=== PATIENT | male | born 1960 | race Caucasian/White ===

== ENCOUNTER 2016-08-25 09:04 | Emergency (ER) | payer BC ==
[2016-08-25 09:37] LABS: Hematocrit 28 % (42-52); Hemoglobin 8.7 g/dl (14.0-18.0); Mean Corpuscular HGB Conc 31 g/dl (31-36); Mean Corpuscular Hemoglobin 22 pg (27-31); Mean Corpuscular Volume 71 fL (80-94); Mean Platelet Volume 8 um3 (7.4-10.4); Red Blood Count 3.96 10^6/ul (4.0-5.4); Red Cell Distribution Width 16 % (10.5-15); White Blood Count 6.7 10^3/ul (3.5-10.8)
[2016-08-25 09:41] LABS: Comments Flag Yes
[2016-08-25 09:57] LABS: BUN/Creatinine Ratio 15.7 (8-20); EGFR African American 97.9 (>60); EGFR Non-African American 76.1 (>60); Potassium 4.2 mmol/L (3.5-5.0)
--- NOTE | 2016-08-25 10:34 | RAD ---
INDICATION: Pain and swelling. COMPARISON: November 19, 2013 TECHNIQUE: Duplex interrogation of the Lowerextremity was performed. FINDINGS: Deep veins: The common femoral, great saphenous, profunda femoris, proximal, mid, and distal deep femoral, popliteal, posterior tibial, and peroneal veins are patent. There is normal compressibility, augmentation, and phasic flow. Superficial veins: There are no findings of superficial thrombophlebitis. Popliteal fossa:There is no evidence of a popliteal cyst. Soft tissues:There are no soft tissue abnormalities. IMPRESSION: Normal examination. No evidence of deep venous thrombosis
[2016-08-25 11:59] VITALS: BP 150/86
--- NOTE | 2016-08-28 18:41 | ED ---
Ho Siegel Billy, scribed for Jose Melendez MD on 08/25/16 at 1124 . Lower Extremity - HPI Summary HPI Summary: Patient is a 56 year-old male with a history of DVT coming to [facility] for evaluation of left calf cramping at 0400 today. Pain severity 6/10. There is no swelling to the left leg. He states that he went to bed at midnight without any remarkable symptoms at all. The patient states that he exerted himself mowing the yard yesterday. At this time, he also denies any dizziness or blood in the stool. - History of Current Complaint Chief Complaint: EDExtremityLower Stated Complaint: LEFT LEG PAIN Time Seen by Provider: 08/25/16 09:12 Hx Obtained From: Patient Mechanism Of Injury: Unknown Onset of Pain: Hours Onset/Duration: Hours Severity Initially: Moderate Severity Currently: Moderate Pain Intensity: 6 Pain Scale Used: 0-10 Numeric Timing: Constant Location: Is Discrete @ - left calf pain Associated Signs And Symptoms: Positive: Negative Aggravating Factor(s): Nothing Alleviating Factor(s): Nothing Able to Bear Weight: Yes - Allergies/Home Medications Allergies/Adverse Reactions: Allergies Allergy/AdvReac Type Severity Reaction Status Date / Time Codeine Allergy Severe Rash/trouble Verified 06/06/14 20:39 breathing Penicillins Allergy Unknown Unknown Verified 06/06/14 20:39 Reaction Details Bee Venom Allergy Hives Verified 04/10/16 13:05 Iodinated Diagnostic Agents Allergy Tachycardia Verified 04/10/16 13:04 excederin Allergy Severe Anaphylatic Uncoded 06/06/14 20:39 Shock PMH/Surg Hx/FS Hx/Imm Hx Endocrine/Hematology History: Reports: Hx Anticoagulant Therapy Denies: Hx Diabetes, Hx Systemic Lupus Erythematosus, Hx Thyroid Disease, Other Endocrine/Hematological Disorders Cardiovascular History: Reports: Hx Coronary Artery Disease - CATH IN 1999 STATED 90% BLOCKED ARTERY- RECENT STRESS TEST PT STATED NO PRO, Hx Hypertension , Other Cardiovascular Problems/Disorders - CAD, PALPITATIONS Denies: Hx Congestive Heart Failure, Hx Pacemaker/ICD Respiratory History: Reports: Hx Sleep Apnea - HX OF- BUT NOT CURRENTLY, Other Respiratory Problems/Disorders - chronic bronchitis Denies: Hx Asthma, Hx Chronic Obstructive Pulmonary Disease (COPD) GI History: Reports: Hx Gall Bladder Disease - removal jan 2012, Hx Gastroesophageal Reflux Disease - ON OCCASION, Other GI Disorders - multiple abd sx. rouen-y. History: Reports: Hx Kidney Stones - SURGERY 02/12/12, Hx Renal Disease - kidney stones, Other Problems/Disorders - prior kidney stones w ESWL. Denies: Hx Dialysis Musculoskeletal History: Reports: Hx Arthritis - KNEES, NECK, AND BACK, Other Musculoskeletal History - knee surgery Denies: Hx Rheumatoid Arthritis Sensory History: Reports: Hx Contacts or Glasses - GLASSES Denies: Hx Hearing Aid, Other Sensory Impairments Opthamlomology History: Reports: Hx Contacts or Glasses - GLASSES Denies: Other Sensory Impairments Neurological History: Denies: Hx Dementia, Hx Seizures, Other Neuro Impairments/Disorders Psychiatric History: Denies: Hx Panic Disorder, Hx Substance Abuse, Other Psychiatric Issues/ Disorders - Cancer History Cancer Type, Location and Year: COLONOSCOPY REVEALED POLYPS WHICH MAY HAVE BEEN PRE CANCEROUS diagnosed 2012 Hx Chemotherapy: No - Surgical History Surgery Procedure, Year, and Place: Cholecystectomy, KIDNEY STONE STENT REMOVED AFTER STONE PASSED, hernia repair, rouen-y gastric bypass, RT KNEE X2(TOTAL REPLACEMENT NOW 10/2013), CARDIAC CATH Hx Anesthesia Reactions: No Infectious Disease History: Denies: Hx Hepatitis, Hx Human Immunodeficiency Virus (HIV), History Other Infectious Disease, Traveled Outside the [place] in Last 30 Days - Family History Known Family History: Positive: Cardiac Disease, Diabetes - Social History Alcohol Use: None Substance Use Type: Reports: None Hx Tobacco Use: Yes Smoking Status (MU): Light Every Day Tobacco Smoker Type: Cigars Amount Used/How Often: 2 CIGARS/week 20 YRS Have You Smoked in the Last Year: Yes Review of Systems Negative: Fever, Chills Negative: Erythema Negative: Sore Throat Negative: Chest Pain Negative: Shortness Of Breath, Cough Negative: Abdominal Pain, Vomiting, Nausea Negative: dysuria, hematuria Positive: Myalgia. Negative: Edema Negative: Rash All Other Systems Reviewed And Are Negative: Yes Physical Exam - Summary Physical Exam Summary: Constitutional: Well-developed, Well-nourished, Alert. (-) Distressed Skin: Warm, Dry HENT: Normocephalic; Atraumatic Eyes: Conjunctiva normal Neck: Musculoskeletal ROM normal neck. (-) JVD, (-) Stridor, (-) Tracheal deviation Cardio: Rhythm regular, rate normal, Heart sounds normal; Intact distal pulses; The pedal pulses are 2+ and symmetric. Radial pulses are 2+ and symmetric. (-) Murmur Pulmonary/Chest wall: Effort normal. (-) Respiratory distress, (-) Wheezes, (-) Rales Abd: Soft, (-) Tenderness, (-) Distension, (-) Guarding, (-) Rebound Musculoskeletal: (-) Edema Lymph: (-) Cervical adenopathy Neuro: Alert, Oriented x3 Psych: Mood and affect Normal Triage Information Reviewed: Yes Vital Signs On Initial Exam: Initial Vitals Temp Pulse Resp BP Pulse Ox 97.9 F 69 20 152/90 100 08/25/16 09:08 08/25/16 09:08 08/25/16 09:08 08/25/16 09:08 08/25/16 09:08 Vital Signs Reviewed: Yes - [place] Coma Scale Coma Scale Total: 15 Diagnostics - Vital Signs Vital Signs Temp Pulse Resp BP Pulse Ox 08/25/16 09:30 97.9 F 72 20 152/90 98 08/25/16 09:08 97.9 F 69 20 152/90 100 - Laboratory Lab Results: Lab Results 08/25/16 08/25/16 08/25/16 Range/Units 09:25 09:25 09:25 WBC 6.7 (3.5-10.8) 10^3/ul RBC 3.96 L (4.0-5.4) 10^6/ul Hgb 8.7 L (14.0-18.0) g/dl Hct 28 L (42-52) % MCV 71 L (80-94) fL MCH 22 L (27-31) pg MCHC 31 (31-36) g/dl RDW 16 H (10.5-15) % Plt Count 295 (150-450) 10^3/ul MPV 8 (7.4-10.4) um3 INR (Anticoag Therapy) 0.95 (0.89-1.11) Sodium 135 (133-145) mmol/L Potassium 4.2 (3.5-5.0) mmol/L Chloride 105 (101-111) mmol/L Carbon Dioxide 24 (22-32) mmol/L Anion Gap 6 (2-11) mmol/L BUN 16 (6-24) mg/dL Creatinine 1.02 (0.67-1.17) mg/dL Est GFR ( Amer) 97.9 (>60) Est GFR (Non-Af Amer) 76.1 (>60) BUN/Creatinine Ratio 15.7 (8-20) Glucose 97 (70-100) mg/dL Calcium 9.0 (8.6-10.3) mg/dL Result Diagrams: 08/25/16 09:25 08/25/16 09:25 Lab Statement: Any lab studies that have been ordered have been reviewed, and results considered in the medical decision making process. - Ultrasound No standard instances Ultrasound Interpretation Completed By: Radiologist - Lower extremity ultrasound : Normal examination. No evidence of deep venous thrombosis Lower Extremity Course/Dx - Course Assessment/Plan: Patient is a 56 year-old male coming to [facility] for evaluation of LLE cramping today. DVT of the LLE showed no DVT. Labs were reviewed. Potassium is 4.2. Hgb/Hct is 8.7/28. MCV is 71. His prior lab values were reviewed, and the values today appear to be inconsistent with normal. Patient will be discharged home to follow up with PCP. - Diagnoses Provider Diagnoses: Leg cramp, Anemia - Physician Notifications Discussed Care of Patient With: POLINA Hoskins (Dr. Corey's office) at 1150: patient is to call the office when he leaves the ED, and they will schedule an appointment in the next 48 hours. Discharge - Discharge Plan Condition: Stable Disposition: HOME Patient Education Materials: Leg Cramps (ED), Anemia (ED) Referrals: Consuelo Corey MD [Primary Care Provider] - 2 Days Additional Instructions: COME TO THE EMERGENCY ROOM WITH CHEST PAIN, SHORTNESS OF BREATH, DIZZINESS, FATIGUE, OR ANY WORSENING SYMPTOMS. AVOID TAKING MOTRIN OR IBUPROFEN IN THE MEANTIME. TAKE IRON SUPPLEMENTS INSTRUCTED. FOLLOW UP WITH YOUR PRIMARY CARE PHYSICIAN FOR REPEAT LAB RESULTS. CALL THE OFFICE RIGHT AFTER YOU LEAVE THE EMERGENCY ROOM TO SCHEDULE AN APPOINTMENT. The documentation as recorded by the Ho castano Billy accurately reflects the service I personally performed and the decisions made by , Jose Melendez MD.
== END 2016-08-25 11:57 | disposition home or self-care (01) ==
LOC: ED 09:04
DX: R25.2 Cramp and spasm (principal); D64.9 Anemia, unspecified; F17.290 Nicotine dependence, other tobacco product, uncomplicated; I25.10 Atherosclerotic heart disease of native coronary artery without angina pectoris; I10 Essential (primary) hypertension; K21.9 Gastro-esophageal reflux disease without esophagitis; Z79.01 Long term (current) use of anticoagulants
CPT/HCPCS: 36415; 80048; 85027; 85610; 99283

== ENCOUNTER 2016-12-24 06:17 | Emergency (ER) | payer BC ==
--- NOTE | 2016-12-24 08:05 | RAD ---
INDICATION: LEFT wrist deformity post fall. Pain. COMPARISON: No relevant prior exams available on the [facility] for comparison. TECHNIQUE: AP, lateral, and oblique views LEFT wrist. REPORT: Mildly impacted intra-articular fracture of the distal radius without significant resulting articular surface discontinuity or incongruity at the radiocarpal joint despite intra-articular extension. No additional fracture evident. Loss of the normal volar tilt of the distal radioarticular surface. Articular alignment is otherwise unremarkable. Osteoarthritis with advanced degenerative arthropathy at the basal joint of the thumb. Associated subchondral sclerosis and cystic change. Nonfocal soft tissue swelling. IMPRESSION: Minimally impacted and comminuted intra-articular fracture at the distal radius.
--- NOTE | 2016-12-24 08:05 | RAD ---
INDICATION: Trauma, left rib pain. COMPARISON: Comparison is made with a prior chest x-ray study from September 15, 2016. TECHNIQUE: Dual-energy PA and lateral views of the chest were obtained. FINDINGS: The heart is within normal limits in size. Mediastinal and hilar contours appear within normal limits. The lungs are underinflated and clear. No pleural effusion or pneumothorax is seen. No rib fracture is appreciated. IMPRESSION: NO EVIDENCE FOR ACTIVE CARDIOPULMONARY DISEASE.
[2016-12-24 08:14] VITALS: BP 169/99
--- NOTE | 2016-12-24 08:37 | ED ---
Merrick Siegel Angela, scribed for Ayush Goldstein MD on 12/24/16 at 0800 . Upper Extremity Pain - HPI Summary HPI Summary: This pt is a 56 y/o male presenting to [facility] c/o left wrist and left rib pain s/ p falling today at 5:30 AM. Pt reports he accidentally fell down 3 steps walking out of his house and landed on his left arm and ribs. Pt endorses a sharp pain when taking a deep breath. Pt denies dizziness prior to fall, head strike, LOC, abd pain, lower extremity pain. He has not taken any pain medication. He states his hemoglobin has been low since last week and has avoided taking pain medications. - History of Current Complaint Chief Complaint: EDExtremityUpper Stated Complaint: ARM AND RIB PAIN FALL Time Seen by Provider: 12/24/16 07:18 Hx Obtained From: Patient Mechanism Of Injury: Fall From Height Of: - 3 steps down Timing: Constant Aggravating Factor(s): Movement, Other - deep breathing Alleviating Factor(s): Nothing Associated Signs & Symptoms: Negative: Chest Pain, SOB - Allergies/Home Medications Allergies/Adverse Reactions: Allergies Allergy/AdvReac Type Severity Reaction Status Date / Time Codeine Allergy Severe Rash/trouble Verified 06/06/14 20:39 breathing Penicillins Allergy Unknown Rash Verified 09/03/16 14:18 Bee Venom Allergy Hives Verified 04/10/16 13:05 Iodinated Diagnostic Agents Allergy Tachycardia Verified 04/10/16 13:04 excederin Allergy Severe Anaphylatic Uncoded 06/06/14 20:39 Shock PMH/Surg Hx/FS Hx/Imm Hx Endocrine/Hematology History: Reports: Hx Anticoagulant Therapy Denies: Hx Diabetes, Hx Systemic Lupus Erythematosus, Hx Thyroid Disease, Other Endocrine/Hematological Disorders Cardiovascular History: Reports: Hx Coronary Artery Disease - CATH IN 1999 STATED 90% BLOCKED ARTERY- RECENT STRESS TEST PT STATED NO PRO, Hx Hypertension , Other Cardiovascular Problems/Disorders - CAD, PALPITATIONS, CARDIAC CATH, ANEMIA, LOW HEMOGLOBIN, PEPTIC ULCER Denies: Hx Congestive Heart Failure, Hx Pacemaker/ICD Respiratory History: Reports: Hx Sleep Apnea - HX OF- BUT NOT CURRENTLY, Other Respiratory Problems/Disorders - chronic bronchitis,BLOOD CLOTS IN LUNGS Denies: Hx Asthma, Hx Chronic Obstructive Pulmonary Disease (COPD) GI History: Reports: Hx Gall Bladder Disease - removal jan 2012, Hx Gastroesophageal Reflux Disease - ON OCCASION, Other GI Disorders - multiple abd sx. rouen-y. History: Reports: Hx Kidney Stones - SURGERY 02/12/12, Hx Renal Disease - kidney stones, Other Problems/Disorders - prior kidney stones w ESWL. Denies: Hx Dialysis Musculoskeletal History: Reports: Hx Arthritis - KNEES, NECK, AND BACK, Other Musculoskeletal History - knee surgery Denies: Hx Rheumatoid Arthritis Sensory History: Reports: Hx Contacts or Glasses - GLASSES Denies: Hx Hearing Aid, Other Sensory Impairments Opthamlomology History: Reports: Hx Contacts or Glasses - GLASSES Denies: Other Sensory Impairments Neurological History: Denies: Hx Dementia, Hx Seizures, Other Neuro Impairments/Disorders Psychiatric History: Denies: Hx Panic Disorder, Hx Substance Abuse, Other Psychiatric Issues/ Disorders - Cancer History Cancer Type, Location and Year: COLONOSCOPY REVEALED POLYPS WHICH MAY HAVE BEEN PRE CANCEROUS diagnosed 2012 Hx Chemotherapy: No - Surgical History Surgery Procedure, Year, and Place: Cholecystectomy, KIDNEY STONE STENT REMOVED AFTER STONE PASSED, hernia repair, rouen-y gastric bypass, RT KNEE X2(TOTAL REPLACEMENT NOW 10/2013), CARDIAC CATH Hx Anesthesia Reactions: No - Immunization History Date of Tetanus Vaccine: utd Date of Influenza Vaccine: utd Infectious Disease History: No Infectious Disease History: Denies: Hx Hepatitis, Hx Human Immunodeficiency Virus (HIV), History Other Infectious Disease, Traveled Outside the [place] in Last 30 Days - Social History Alcohol Use: None Alcohol Amount: none in 4 years Substance Use Type: Reports: None Hx Tobacco Use: Yes Smoking Status (MU): Former Smoker Type: Cigars Amount Used/How Often: 2 CIGARS/week 20 YRS Have You Smoked in the Last Year: Yes Review of Systems Negative: Fever, Chills Negative: Abdominal Pain All Other Systems Reviewed And Are Negative: Yes Physical Exam Triage Information Reviewed: Yes Vital Signs On Initial Exam: Initial Vitals Temp Pulse Resp BP Pulse Ox 97.5 F 73 20 164/100 100 12/24/16 06:18 12/24/16 06:18 12/24/16 06:18 12/24/16 06:18 12/24/16 06:18 Vital Signs Reviewed: Yes Appearance: Positive: Well-Appearing Skin: Positive: Warm, Skin Color Reflects Adequate Perfusion, Dry Head/Face: Positive: Normal Head/Face Inspection Eyes: Positive: Normal ENT: Positive: Normal ENT inspection Neck: Positive: Supple, Nontender Respiratory/Lung Sounds: Positive: Clear to Auscultation, Breath Sounds Present Cardiovascular: Positive: RRR Abdomen Description: Positive: Nontender, Soft Bowel Sounds: Positive: Present Musculoskeletal: Positive: Other - Tenderness on the left anterior lateral chest inferiorly. Swelling over the snuff box area in left wrist. - [place] Coma Scale Coma Scale Total: 15 Procedures - Splinting Hand-Made Type: orthoglass Splint: volar Pre-Proc Neuro Vasc Exam: normal Post-Proc Neuro Vasc Exam: normal Diagnostics - Vital Signs Vital Signs Temp Pulse Resp BP Pulse Ox 12/24/16 06:22 97.5 F 73 20 164/100 100 12/24/16 06:18 97.5 F 73 20 164/100 100 - Laboratory Lab Statement: Any lab studies that have been ordered have been reviewed, and results considered in the medical decision making process. - Radiology Chest XR Xray Interpretation: No Acute Changes - IMPRESSION: No evidence for active cardiopulmonary disease. ED physician has reviewed this radiology report and agrees. Radiology Interpretation Completed By: Radiologist Left wrist XR Xray Interpretation: Positive (See Comments) - IMPRESSION: Minimally impacted and comminuted intra-articular fracture at the distal radius. ED physician has reviewed this radiology report and agrees. Radiology Interpretation Completed By: Radiologist - Awaiting radiologist's report. Please see [employer]. Course/Dx - Course Course Of Treatment: Mr. Hawk had a mechanical fall down three steps this AM about 0530. He hurt his left wrist and the left side of his chest is sore with sharp pain to movement and breaths. No rib fractures were noted on x-ray but he does have a comminuted, intraarticular radial fracture that is nondisplaced. I placed him in a temporary volar spoint as he has a lot of dorsal swelling. He has been anemic for unknown reasons that are being W/U but assures me that he was not dizzy and did not faint. - Diagnoses Provider Diagnoses: Fracture of wrist, Chest wall contusion Discharge - Discharge Plan Condition: Stable Disposition: HOME Prescriptions: oxyCODONE/Acetamin 5/325 MG* [Percocet 5/325 TAB*] 1 tab PO Q6H PRN #20 tab MDD 4 PRN Reason: Pain Patient Education Materials: Wrist Fracture in Adults (ED), Chest Wall Pain (ED ) Referrals: Consuelo Grossman MD [Primary Care Provider] - Lachelle Tam MD [Medical Doctor] - Additional Instructions: Your blood pressure was elevated during today's visit. Please follow up with Dr. Tam (from orthopedics) regarding your wrist today. The documentation as recorded by the Merrick castano Angela accurately reflects the service I personally performed and the decisions made by me, Ayush Goldstein MD.
== END 2016-12-24 08:16 | disposition home or self-care (01) ==
LOC: ED 06:17
DX: S62.102A Fracture of unspecified carpal bone, left wrist, initial encounter for closed fracture (principal); S20.219A Contusion of unspecified front wall of thorax, initial encounter; W10.9XXA Fall (on) (from) unspecified stairs and steps, initial encounter; Y93.9 Activity, unspecified; Y92.9 Unspecified place or not applicable
CPT/HCPCS: 71020; 99282

== ENCOUNTER 2017-04-20 12:06 | Emergency (ER) | payer BC ==
[2017-04-20 12:39] VITALS: BP 154/85
--- NOTE | 2017-04-20 14:54 | UC ---
Respiratory Complaint HPI - HPI Summary HPI Summary: Pt presents with coughing and wheezing for the last 4-5 days. He has not tried anything OTC. Cough is not productive. Denies fever, chills, SOB, chest pain, abdominal pain, N/V/D/C - History of Current Complaint Chief Complaint: UCRespiratory Stated Complaint: COUGH WHEEZING Time Seen by Provider: 04/20/17 14:54 Hx Obtained From: Patient Onset/Duration: Gradual Onset Timing: Constant Severity Initially: Mild Severity Currently: Moderate - Allergies/Home Medications Allergies/Adverse Reactions: Allergies Allergy/AdvReac Type Severity Reaction Status Date / Time Codeine Allergy Severe Rash/trouble Verified 04/20/17 12:33 breathing Penicillins Allergy Unknown Rash Verified 04/20/17 12:33 Bee Venom Allergy Hives Verified 04/20/17 12:33 Iodinated Diagnostic Agents Allergy Tachycardia Verified 04/20/17 12:33 Statins Allergy Unknown Verified 04/20/17 12:33 Reaction Details excederin Allergy Severe Anaphylatic Uncoded 04/20/17 12:33 Shock PMH/Surg Hx/FS Hx/Imm Hx Previously Healthy: Yes Endocrine History: Dyslipidemia Cardiovascular History: Hypertension GI/ History: Gastroesophageal Reflux Other History Of: Anticoagulant Therapy - Surgical History Surgical History: Yes Surgery Procedure, Year, and Place: Cholecystectomy, KIDNEY STONE STENT REMOVED AFTER STONE PASSED, hernia repair, rouen-y gastric bypass, RT KNEE X2(TOTAL REPLACEMENT NOW 10/2013), CARDIAC CATH - Social History Occupation: Employed Full-time Lives: With Family Alcohol Use: None Alcohol Amount: none in 4 years Substance Use Type: None Smoking Status (MU): Former Smoker Type: Cigars Amount Used/How Often: 2 CIGARS/week 20 YRS Have You Smoked in the Last Year: Yes Household Exposure Type: Cigars Cessation Counseling: Patient Advised to Stop - Immunization History Most Recent Influenza Vaccination: FALL 2012 Most Recent Tetanus Shot: 2011 Most Recent Pneumonia Vaccination: NEVER Review of Systems Constitutional: Negative Skin: Negative Eyes: Negative ENT: Negative Respiratory: Cough, Other - Wheezing Cardiovascular: Negative Gastrointestinal: Negative All Other Systems Reviewed And Are Negative: Yes Physical Exam Triage Information Reviewed: Yes Appearance: Well-Appearing, Well-Nourished Vital Signs: Initial Vital Signs Temp 97.8 F 04/20/17 12:36 Resp 20 04/20/17 12:36 BP 154/85 04/20/17 12:36 Pulse Ox 98 04/20/17 12:36 Vital Signs Reviewed: Yes Eyes: Positive: Conjunctiva Clear. Negative: Conjunctiva Inflamed, Discharge ENT: Positive: Hearing grossly normal, Pharynx normal, TMs normal, Uvula midline. Negative: Pharyngeal erythema, Nasal congestion, Nasal drainage, TM bulging, TM dull, TM red, Tonsillar swelling, Tonsillar exudate, Muffled voice, Hoarse voice, Sinus tenderness Neck: Positive: Supple, Nontender, No Lymphadenopathy Respiratory: Positive: Chest non-tender, Lungs clear, No respiratory distress, No accessory muscle use, Wheezing - Throughout. Negative: Crackles Cardiovascular: Positive: RRR, No Murmur, Pulses Normal Neurological: Positive: Alert Psychological: Positive: Age Appropriate Behavior Skin: Negative: rashes UC Diagnostic Evaluation - Laboratory O2 Sat by Pulse Oximetry: 98 Respiratory Course/Dx - Course Course Of Treatment: Suspect bronchitis. Rx for albuterol and tessalon. No indication for antibiotic at this time - Differential Dx/Diagnosis Differential Diagnosis/HQI/PQRI: Asthma, Bronchitis, Influenza, Lower Resp Infection Provider Diagnoses: Bronchitis Discharge - Discharge Plan Condition: Stable Disposition: HOME Prescriptions: Albuterol HFA INHALER* [Ventolin HFA Inhaler*] 2 puff INH Q6H PRN #1 mdi PRN Reason: Sob/Wheezing Benzonatate CAP* [Tessalon 100 MG CAP*] 100 mg PO TID PRN #30 cap PRN Reason: Cough Patient Education Materials: Acute Bronchitis (ED) Referrals: Consuelo Grossman MD [Primary Care Provider] - Additional Instructions: If you develop a fever, SOB, chest pain, new or worsening symptoms - please call your PCP or go to the ED. Your blood pressure was high at todays visit. Please see your primary provider within 4 weeks for recheck and re-evaluation.
== END 2017-04-20 15:10 | disposition home or self-care (01) ==
LOC: UCEAST 12:06
DX: J40 Bronchitis, not specified as acute or chronic (principal); Z87.891 Personal history of nicotine dependence
CPT/HCPCS: 99212; G0463

== ENCOUNTER 2018-04-01 13:12 | Inpatient (IN) | payer BC ==
[2018-04-01 16:16] LABS: ABS Basophils 0.2 10^3/ul (0-0.2); ABS Eosinophils 0.2 10^3/ul (0-0.6); ABS Lymphocytes 1.4 10^3/ul (1.0-4.8); ABS Monocytes 0.7 10^3/ul (0-0.8); ABS Neutrophils 7.4 10^3/ul (1.5-7.7); ABS Nucleated RBC 0 10^3/ul; Eosinophil % 1.9 %; Hematocrit 24 % (42-52); Hemoglobin 7.4 g/dl (14.0-18.0); Lymphocyte % 14.4 %; Mean Corpuscular HGB Conc 31 g/dl (31-36); Mean Corpuscular Hemoglobin 23 pg (27-31); Mean Corpuscular Volume 74 fL (80-94); Mean Platelet Volume 7.4 fL (7.4-10.4); Nucleated Red Blood Cells % 0; Platelet Count 348 10^3/ul (150-450); Red Blood Count 3.22 10^6/ul (4.00-5.40); Red Cell Distribution Width 15 % (10.5-15); White Blood Count 9.9 10^3/ul (3.5-10.8)
[2018-04-01 16:22] LABS: INR 1.06 (0.77-1.02)
[2018-04-01 16:31] LABS: EGFR Non-African American 88.4 (>60)
--- NOTE | 2018-04-01 18:36 | ED ---
Complex/Multi-Sys Presentation - HPI Summary HPI Summary: A 58 y/o male presents to [facility] because Dr. Lin referred him after his hemoglobin was low at 7.8 on 04/01/18. He claims he has been dealing with this problem since August,. According to the patient, before August a non- bleeding ulcer was found and a gastrosurgeon found found a "non-bleeding tear in a pouch". He denies any Hx of transfusions. He also endorses SOB, abd pain and lightheadedness. The patient denies any palpitations or CP. He denies a Hx of CHF and A-fib. He claims that in 2001 he had a cardiac cath and did not need stents. He denies rectal bleeding. He denies taking blood thinners. He is a former smoker who quit 4.5 years ago. - History Of Current Complaint Chief Complaint: EDShortnessOfBreath Time Seen by Provider: 04/01/18 15:04 Hx Obtained From: Patient Onset/Duration: Gradual Onset, Lasting Weeks, Still Present Timing: Constant Severity Currently: Moderate Severity Initially: Moderate Associated Signs And Symptoms: Positive: SOB, Abdominal Pain, Other - lightheadedness. Negative: Palpitations - Allergies/Home Medications Allergies/Adverse Reactions: Allergies Allergy/AdvReac Type Severity Reaction Status Date / Time aspirin Allergy Anaphylatic Verified 04/01/18 13:21 [From Excedrin Migraine] Shock bee venom protein (honey bee) Allergy Hives Verified 04/01/18 13:21 caffeine Allergy Anaphylatic Verified 04/01/18 13:21 [From Excedrin Migraine] Shock codeine Allergy Rash Verified 04/01/18 13:21 Iodinated Contrast- Oral and Allergy Tachycardia Verified 04/01/18 13:21 IV Dye Penicillins Allergy Rash Verified 04/01/18 13:21 [id number] Reductase Allergy Unknown Verified 04/01/18 13:21 Inhibitor Reaction Details PMH/Surg Hx/FS Hx/Imm Hx Endocrine/Hematology History: Reports: Hx Anticoagulant Therapy Denies: Hx Diabetes, Hx Systemic Lupus Erythematosus, Hx Thyroid Disease, Other Endocrine/Hematological Disorders Cardiovascular History: Reports: Hx Coronary Artery Disease - CATH IN 1999 STATED 90% BLOCKED ARTERY- RECENT STRESS TEST PT STATED NO PRO, Hx Hypertension , Other Cardiovascular Problems/Disorders - CAD, PALPITATIONS, CARDIAC CATH, ANEMIA, LOW HEMOGLOBIN, PEPTIC ULCER Denies: Hx Congestive Heart Failure, Hx Pacemaker/ICD Respiratory History: Reports: Hx Sleep Apnea - HX OF- BUT NOT CURRENTLY, Other Respiratory Problems/Disorders - chronic bronchitis,BLOOD CLOTS IN LUNGS Denies: Hx Asthma, Hx Chronic Obstructive Pulmonary Disease (COPD) GI History: Reports: Hx Gall Bladder Disease - removal jan 2012, Hx Gastroesophageal Reflux Disease - ON OCCASION, Other GI Disorders - multiple abd sx.; rouen-y 2002 History: Reports: Hx Kidney Stones - SURGERY 02/12/12, Hx Renal Disease - kidney stones, Other Problems/Disorders - prior kidney stones w ESWL. Denies: Hx Dialysis Musculoskeletal History: Reports: Hx Arthritis - KNEES, NECK, AND BACK, Other Musculoskeletal History - knee surgery Denies: Hx Rheumatoid Arthritis Sensory History: Reports: Hx Contacts or Glasses - GLASSES Denies: Hx Hearing Aid, Other Sensory Impairments Opthamlomology History: Reports: Hx Contacts or Glasses - GLASSES Denies: Other Sensory Impairments Neurological History: Denies: Hx Dementia, Hx Seizures, Other Neuro Impairments/Disorders Psychiatric History: Denies: Hx Panic Disorder, Hx Substance Abuse, Other Psychiatric Issues/ Disorders - Cancer History Cancer Type, Location and Year: COLONOSCOPY REVEALED POLYPS WHICH MAY HAVE BEEN PRE CANCEROUS diagnosed 2012 Hx Chemotherapy: No - Surgical History Surgery Procedure, Year, and Place: Cholecystectomy, KIDNEY STONE STENT REMOVED AFTER STONE PASSED, hernia repair, rouen-y gastric bypass, RT KNEE X2(TOTAL REPLACEMENT NOW 10/2013), CARDIAC CATH Hx Anesthesia Reactions: No - Immunization History Date of Tetanus Vaccine: utd Date of Influenza Vaccine: utd Infectious Disease History: No Infectious Disease History: Denies: Hx Clostridium Difficile, Hx Hepatitis, Hx Human Immunodeficiency Virus (HIV), Hx of Known/Suspected MRSA, Hx Shingles, Hx Tuberculosis, Hx Known/ Suspected VRE, Hx Known/Suspected VRSA, History Other Infectious Disease, Traveled Outside the [place] in Last 30 Days - Family History Known Family History: Negative: Cardiac Disease, Blood Disorder - Social History Alcohol Use: None Alcohol Amount: none in 4 years Substance Use Type: Reports: None Hx Tobacco Use: Yes Smoking Status (MU): Former Smoker Type: Cigars Amount Used/How Often: 2 CIGARS/week 20 YRS Have You Smoked in the Last Year: Yes Review of Systems Negative: Palpitations, Chest Pain Positive: Shortness Of Breath Gastrointestinal: Negative - rectal bleeding Positive: Abdominal Pain Psychological: Other - positive: lightheadedness All Other Systems Reviewed And Are Negative: Yes Physical Exam - Summary Physical Exam Summary: GENERAL: Patient is a well-developed and nourished M who is lying comfortable in the stretcher. Patient is not in any acute respiratory distress. HEAD AND FACE: Normocephalic EYES: PERRLA, EOMI x 2. EARS: Hearing grossly intact. MOUTH: Oropharynx within normal limits. NECK: Supple, trachea is midline, no adenopathy, no JVD, no carotid bruit. CHEST: Symmetric, no tenderness at palpation LUNGS: Clear to auscultation bilaterally. No wheezing or crackles. CVS: Regular rate and rhythm, S1 and S2 present, no murmurs or gallops appreciated. ABDOMEN: Soft, non-tender. Bowel sounds are normal. No abdominal abnormal pulsations. EXTREMITIES: Full ROM in all major joints, no edema, no cyanosis or clubbing. NEURO: Alert and oriented x 3. No acute neurological deficits. Speech is normal and follows commands. SKIN: Dry and warm Triage Information Reviewed: Yes Vital Signs On Initial Exam: Initial Vitals Temp Pulse Resp BP Pulse Ox 98.1 F 73 18 149/77 96 04/01/18 13:15 04/01/18 13:15 04/01/18 13:15 04/01/18 13:15 04/01/18 13:15 Vital Signs Reviewed: Yes Diagnostics - Vital Signs Vital Signs Temp Pulse Resp BP Pulse Ox 04/01/18 18:00 75 21 97 04/01/18 17:44 75 21 147/77 97 04/01/18 17:42 73 29 144/69 98 04/01/18 17:14 74 22 137/79 96 04/01/18 17:00 71 15 97 04/01/18 16:44 73 21 136/70 98 04/01/18 16:14 19 134/78 04/01/18 16:00 72 17 98 04/01/18 15:44 71 17 138/76 97 04/01/18 15:14 71 22 136/76 97 04/01/18 15:00 74 18 97 04/01/18 14:46 78 15 97 04/01/18 14:44 81 149/94 98 04/01/18 13:15 98.1 F 73 18 149/77 96 - Laboratory Lab Results: Lab Results 04/01/18 04/01/18 04/01/18 Range/Units 16:00 16:00 16:00 WBC 9.9 (3.5-10.8) 10^3/ul RBC 3.22 L (4.00-5.40) 10^6/ul Hgb 7.4 L (14.0-18.0) g/dl Hct 24 L (42-52) % MCV 74 L (80-94) fL MCH 23 L (27-31) pg MCHC 31 (31-36) g/dl RDW 15 (10.5-15) % Plt Count 348 (150-450) 10^3/ul MPV 7.4 (7.4-10.4) fL Neut % (Auto) 74.8 % Lymph % (Auto) 14.4 % Keith % (Auto) 7.3 % Eos % (Auto) 1.9 % Baso % (Auto) 1.6 % Absolute Neuts (auto) 7.4 (1.5-7.7) 10^3/ul Absolute Lymphs (auto) 1.4 (1.0-4.8) 10^3/ul Absolute Monos (auto) 0.7 (0-0.8) 10^3/ul Absolute Eos (auto) 0.2 (0-0.6) 10^3/ul Absolute Basos (auto) 0.2 (0-0.2) 10^3/ul Absolute Nucleated RBC 0 10^3/ul Nucleated RBC % 0 INR (Anticoag Therapy) 1.06 H (0.77-1.02) APTT 25.7 L (26.0-36.3) seconds Sodium 136 (135-145) mmol/L Potassium 4.1 (3.5-5.0) mmol/L Chloride 105 (101-111) mmol/L Carbon Dioxide 27 (22-32) mmol/L Anion Gap 4 (2-11) mmol/L BUN 15 (6-24) mg/dL Creatinine 0.89 (0.67-1.17) mg/dL Est GFR ( Amer) 107.0 (>60) Est GFR (Non-Af Amer) 88.4 (>60) BUN/Creatinine Ratio 16.9 (8-20) Glucose 105 H (70-100) mg/dL Lactic Acid (0.5-2.0) mmol/L Calcium 8.9 (8.6-10.3) mg/dL Magnesium 2.0 (1.9-2.7) mg/dL Total Bilirubin 0.30 (0.2-1.0) mg/dL AST 12 L (13-39) U/L ALT 10 (7-52) U/L Alkaline Phosphatase 42 (34-104) U/L Troponin I 0.00 (<0.04) ng/mL Total Protein 5.8 L (6.4-8.9) g/dL Albumin 3.4 (3.2-5.2) g/dL Globulin 2.4 (2-4) g/dL Albumin/Globulin Ratio 1.4 (1-3) Blood Type Antibody Screen Crossmatch 04/01/18 04/01/18 Range/Units 16:00 16:00 WBC (3.5-10.8) 10^3/ul RBC (4.00-5.40) 10^6/ul Hgb (14.0-18.0) g/dl Hct (42-52) % MCV (80-94) fL MCH (27-31) pg MCHC (31-36) g/dl RDW (10.5-15) % Plt Count (150-450) 10^3/ul MPV (7.4-10.4) fL Neut % (Auto) % Lymph % (Auto) % Keith % (Auto) % Eos % (Auto) % Baso % (Auto) % Absolute Neuts (auto) (1.5-7.7) 10^3/ul Absolute Lymphs (auto) (1.0-4.8) 10^3/ul Absolute Monos (auto) (0-0.8) 10^3/ul Absolute Eos (auto) (0-0.6) 10^3/ul Absolute Basos (auto) (0-0.2) 10^3/ul Absolute Nucleated RBC 10^3/ul Nucleated RBC % INR (Anticoag Therapy) (0.77-1.02) APTT (26.0-36.3) seconds Sodium (135-145) mmol/L Potassium (3.5-5.0) mmol/L Chloride (101-111) mmol/L Carbon Dioxide (22-32) mmol/L Anion Gap (2-11) mmol/L BUN (6-24) mg/dL Creatinine (0.67-1.17) mg/dL Est GFR ( Amer) (>60) Est GFR (Non-Af Amer) (>60) BUN/Creatinine Ratio (8-20) Glucose (70-100) mg/dL Lactic Acid 0.5 (0.5-2.0) mmol/L Calcium (8.6-10.3) mg/dL Magnesium (1.9-2.7) mg/dL Total Bilirubin (0.2-1.0) mg/dL AST (13-39) U/L ALT (7-52) U/L Alkaline Phosphatase (34-104) U/L Troponin I (<0.04) ng/mL Total Protein (6.4-8.9) g/dL Albumin (3.2-5.2) g/dL Globulin (2-4) g/dL Albumin/Globulin Ratio (1-3) Blood Type B Positive Antibody Screen Negative Crossmatch See Detail Result Diagrams: 04/02/18 10:26 04/02/18 07:18 Lab Statement: Any lab studies that have been ordered have been reviewed, and results considered in the medical decision making process. - Radiology CXR Radiology Interpretation Completed By: Radiologist Summary of Radiographic Findings: 1. No radiographic evidence for acute cardiopulmonary abnormality on this portable chest. x-ray. 2. The pulmonary nodules identified on the recent CT examination are not well depicted on. this chest x-ray. Follow-up chest CT exam is advised according to the recommendations on. the March 28, 2018 CT of the chest. ED physician has reviewed this imaging report. - EKG 18:05 Cardiac Rate: NL - 74 bpm EKG Rhythm: Sinus Rhythm Summary of EKG Findings: normal axis Complex Multi-Symp Course/Dx Course Of Treatment: A 58 y/o male presents to [facility] because Dr. Lin referred him after his hemoglobin was low at 7.8 on 04/01/18. Workup is remarkable. CXR impression: 1. No radiographic evidence for acute cardiopulmonary abnormality on this portable chest. x-ray. 2. The pulmonary nodules identified on the recent CT examination are not well depicted on. this chest x-ray. Follow-up chest CT exam is advised according to the recommendations on. the March 28, 2018 CT of the chest. Lab results obtained consistent with anemia. Dx: anemia. Patient will be admitted to Dr. Sawyer. Case discussed with hospitalist. I discussed results with patient. The patient agrees with this plan. - Diagnoses Provider Diagnoses: Anemia - Physician Notifications Discussed Care Of Patient With: Kym Sawyer Time Discussed With Above Provider: 18:30 Instructed by Provider To: Admit As Inpatient - Critical Care Time Critical Care Time: 30-74 min - 30 mins Discharge - Sign-Out/Discharge Documenting (check all that apply): Patient Departure - Admit - Discharge Plan Condition: Fair Disposition: ADMITTED TO [facility] - Billing Disposition and Condition Condition: FAIR Disposition: Admitted to [facility] - Attestation Statements Document Initiated by Nicole: Yes Documenting Scribe: Raulito Saunders Provider For Whom Nicole is Documenting (Include Credential): Danika Downing MD Scribe Attestation: Raulito Siegel, scribed for Danika Downing MD on 04/03/18 at 0231. Scribe Documentation Reviewed: Yes Provider Attestation: The documentation as recorded by the Raulito castano accurately reflects the service I personally performed and the decisions made by , Larissa Downing MD Status of Scribe Document: Viewed
[2018-04-01] MEDS ORDERED: Albuterol 2.5 MG/3 ML NEB.SOL* (0.083%) INH PRN (19:21)
[2018-04-01] MEDS ORDERED: Al Hydrox/Mg Hydrox/Simet LIQ* 30 ML UDC PO PRN (19:21)
[2018-04-01] MEDS ORDERED: Acetaminophen TAB* 325 MG PO PRN (19:21)
[2018-04-01] MEDS: Pantoprazole IV* 40 MG IV SCH (21:15)
[2018-04-02 01:12] LABS: Hematocrit 27 % (42-52); Hemoglobin 8.1 g/dl (14.0-18.0)
[2018-04-02 04:09] LABS: Hematocrit 27 % (42-52); Hemoglobin 8.1 g/dl (14.0-18.0)
--- NOTE | 2018-04-02 06:41 | HP ---
CC: Dr. Corey * HISTORY AND PHYSICAL: DATE OF ADMISSION: 04/01/18 PROVIDER: Ana Trevino NP. PRIMARY CARE PROVIDER: Dr. Corey. ATTENDING PHYSICIAN WHILE IN THE HOSPITAL: Dr. Mariel Iyer * (dictated by Ana Trevino NP). CHIEF COMPLAINT: 1. Shortness of breath. 2. Anemia. HISTORY OF PRESENT ILLNESS: Mr. Hawk is a 58-year-old male with a past medical history significant for hypertension, anemia, gout, kidney stones, hyperlipidemia, history of Connor-en-Y gastric bypass, who was called by Dr. Garza's office today and sent to the emergency room for further evaluation of his anemia. The patient reports that he has had increased shortness of breath and dizziness over the past 5 weeks that has progressively become worse. He states that at [facility], he had a hard time completing tasks ans would have to sit often to catch his breath due to his shortness of breath. He was also feeling fatigued. He reports that today he was called by Dr. Garza's office and instructed to come to the emergency room due to a low hemoglobin and hematocrit. He said that this was a routine followup for him to go over results of his CAT scan for a pulmonary nodule that they are monitoring. The patient reports back in January 2018, he did have an upper endoscopy at [facility] and at that time, they removed some stitches and report that there was no ulcerations at that time, but there was a pocket that they told him they would need to continue to monitor. He denies any fever, chills. Denies any loss of appetite. Denies any chest pain or edema. He does report occasional cough. He denies any hemoptysis. He does report shortness of breath , worse with exertion. Denies any nausea or vomiting. Denies any diarrhea. He does report abdominal pain, located around his abdominal hernia that comes and goes. He denies any gross hematuria, dysuria. Denies any focal weakness or sensory loss. Denies any visual complaints. Denies any dysphagia. He denies any arthralgias or myalgias. He does have a left ankle with a small scabbed area noted to the lateral aspect. He denies any psychosis or anxiety. PAST MEDICAL HISTORY: Significant for: 1. Hypertension. 2. Anemia. 3. Gout. 4. Hyperlipidemia. 5. Kidney stone. 6. Gastric bypass. PAST SURGICAL HISTORY: 1. Gastric bypass. 2. Cholecystectomy. 3. Hernia repair. 4. Right total knee replacement. 5. Cardiac catheterization. HOME MEDICATIONS: 1. Iron 325 mg p.o. daily. 2. Omeprazole. 3. Vitamin D 1000 units. 4. Multivitamin. 5. B12. 6. Vitamin C. 7. Fish oil. 8. Fenofibrate 145 mg p.o. daily. 9. Pindolol 20 mg p.o. daily. 10. Allopurinol 300 mg p.o. daily. 11. Ventolin HFA inhaler. ALLERGIES TO MEDICATIONS: He has allergy to ASPIRIN, had an ANAPHYLACTIC SHOCK. Allergy to BEES, CAFFEINE, CODEINE, CONTRAST, PENICILLIN, and STATINS. FAMILY HISTORY: Mother and father with a history of hypertension. Brother and sister with a history of diabetes. Mother with a history of breast cancer. Father with a history of prostate cancer. SOCIAL HISTORY: The patient reports that he quit smoking 4-1/2 years ago. Denies any alcohol use. Denies any illicit drug use. Surrogate decision maker in the event he is unable to make his own decision is his son or daughter. His son's name is Isidro, his daughter's name is August. He is a full code. REVIEW OF SYSTEMS: There was no documented fever. No loss of appetite. Denies any chest pain or edema. Does report occasional cough. Denies any hemoptysis. He does report some shortness of breath, worse with exertion, progressively worsening over the past 5 weeks. Denies any nausea, vomiting, diarrhea. He does report abdominal pain near his hernia, unchanged. Denies any gross hematuria, dysuria. Denies any focal weakness or sensory loss. Denies any visual complaints. Denies dysphagia. Denies any arthralgias or myalgias. He does have a lesion to the left ankle. Denies any psychosis or anxiety. PHYSICAL EXAMINATION GENERAL: At this time, Mr. Hawk is a 58-year-old male. He appears pale, sitting on the stretcher in the emergency room. He is not in acute distress. VITAL SIGNS: Blood pressure 146/84, heart rate 75, respirations 20, O2 saturation 97%, temperature 99.4. HEENT: Head is atraumatic, normocephalic. Eyes: EOMs are intact. Sclerae anicteric, they are pale. Oral mucosa is moist. No oropharyngeal erythema. NECK: Supple. LUNGS: Clear to auscultation bilaterally. No wheezes, rales, or rhonchi. CARDIAC: S1, S2. Regular rate and rhythm. No murmurs, rubs, or gallops. ABDOMEN: Soft and nontender. Bowel sounds are present x4. EXTREMITIES: Pulses are +2 bilaterally. He is able to move all 4 extremities with 5/5 strength. NEUROLOGIC: He is awake, alert, oriented x3. Speech is clear. There is no gross focal deficits. SKIN: He has a small scabbed area noted to the left lateral ankle and left mid bourgeois, healing without redness. DIAGNOSTIC STUDIES AND LABORATORY DATA: WBCs 9.9, RBCs 3.22, hemoglobin 7.4, hematocrit 24, platelet count 348. INR was 1.06. APTT was 25.7. Sodium 136, potassium 4.1, chloride 105, carbon dioxide 27, anion gap 4, BUN 15, creatinine 0.89, glucose 105, lactic acid 0.5, calcium 8.9. Magnesium was 2.0. AST 12, ALT 10. Troponin was 0.00. Stool for occult was positive. He had a chest x-ray. Radiologist's impression: No evidence of acute cardiopulmonary abnormality on this portable chest x-ray. The pulmonary nodules identified on the CT exam are not well seen on this chest x-ray. Followup CT exam is advised according to the recommendations on 03/28/18 CT of the chest, which recommends followup in 3 to 6 months. He had an electrocardiogram, which showed sinus rhythm at a rate of 74. ASSESSMENT AND PLAN: Mr. Hawk is a 58-year-old male who presented to the emergency room today at the direction of his molecular biology director, Dr. Garza, for further evaluation of anemia. The patient reports that he has been short of breath and dizzy and given these symptoms, we were asked to admit him to the hospital. He will be admitted inpatient for: 1. Anemia. I suspect this is related to GI bleed. The patient does have a positive guaiac stool. We will trend his H and H q.6 hours. He did receive a unit of packed red blood cells in the emergency room. He will be placed on clear liquids and n.p.o. after midnight. I have consulted GI, Dr. Zaldivar, who will see him tomorrow. We will continue with a PPI, Protonix 40 mg b.i.d. I will also add a ferritin, total iron-binding capacity, and iron saturation. 2. Shortness of breath/dizziness. I suspect this is related to his anemia. We will continue with supportive care and monitor his H and H as needed. 3. Hypertension. He will continue on his pindolol 20 mg p.o. daily. 4. Hyperlipidemia. He will continue on fenofibrate 145 mg p.o. daily. 5. History of gout. He can continue his allopurinol 300 mg p.o. daily. 6. FEN. He will be placed on clear liquid diet and to be n.p.o. after midnight for possible upper endoscopy tomorrow. 7. Code status: Full code. 8. DVT prophylaxis: He scores a 2, which gives him a moderate risk. At this time, I am going to hold on heparin as he does have guaiac-positive stools and is anemic. I will place him on SCDs. 9. Disposition: He will be placed inpatient. TIME SPENT: Time spent on this admission was 60 minutes, greater than half the time was spent [id number] with the patient obtaining my history and physical, the other half the time was spent going over my plan of care and implementing my plan of care. I have discussed with my attending, Dr. Mariel Iyer, and she is in agreement with my plan. ANA TREVINO, MONITOR WORKER [id number]/[facility] #: [id number] [facility] HOSPITALLizette
[2018-04-02 07:52] LABS: Hematocrit 27 % (42-52); Hemoglobin 8.4 g/dl (14.0-18.0); Mean Corpuscular HGB Conc 31 g/dl (31-36); Mean Corpuscular Hemoglobin 23 pg (27-31); Mean Corpuscular Volume 76 fL (80-94); Red Blood Count 3.59 10^6/ul (4.00-5.40); Red Cell Distribution Width 16 % (10.5-15); White Blood Count 10.1 10^3/ul (3.5-10.8)
[2018-04-02 08:05] LABS: EGFR Non-African American 101.5 (>60)
[2018-04-02 08:59] LABS: ABS Basophils 0.1 10^3/ul (0-0.2); ABS Eosinophils 0.2 10^3/ul (0-0.6); ABS Lymphocytes 1.4 10^3/ul (1.0-4.8); ABS Monocytes 0.8 10^3/ul (0-0.8); ABS Neutrophils 7.6 10^3/ul (1.5-7.7); ABS Nucleated RBC 0 10^3/ul; Nucleated Red Blood Cells % 0; Platelet Count Platelets clumped. 10^3/ul (150-450)
[2018-04-02] MEDS: Pantoprazole IV* 40 MG IV SCH (10:13)
[2018-04-02 10:35] LABS: Hematocrit 27 % (42-52); Hemoglobin 8.5 g/dl (14.0-18.0)
[2018-04-02] MEDS ORDERED: Midazolam* 1 MG/ML 10 ML VIAL (10 MG) ONE (12:17)
[2018-04-02] MEDS ORDERED: fentaNYL* 50 MCG/ML 2 ML VIAL (100 MCG VIAL) ONE (12:17)
--- NOTE | 2018-04-02 12:26 | PN ---
Subjective Date of Service: 04/02/18 Interval History: Patient seen and examined. No acute overnight events. Patient states no SOB at rest but was getting SOB with stairs and longer distances. Denies chest pain, no n/v/d, no fevers or chills. Objective Active Medications: Acetaminophen (Tylenol Tab*) 650 mg PO Q4H PRN PRN Reason: FEVER/PAIN Al Hydrox/Mg Hydrox/Simethicone (Maalox Plus*) 30 ml PO Q6H PRN PRN Reason: INDIGESTION Albuterol (Ventolin 2.5 Mg/3 Ml Neb.Antonietta*) 2.5 mg INH [id number] AWAKE PRN PRN Reason: sob/wheezing Pantoprazole Sodium (Protonix Iv*) 40 mg IV Q12H BRIAN Last Admin: 04/02/18 10:13 Dose: 40 mg Vital Signs - 8 hr 04/02/18 07:29 Temperature 98.0 F Pulse Rate 68 Respiratory 19 Rate Blood Pressure 138/70 (mmHg) O2 Sat by Pulse 98 Oximetry Oxygen Devices in Use Now: None Appearance: alert, well-appearing, NAD Eyes: No Scleral Icterus, PERRLA Ears/Nose/Mouth/Throat: NL Teeth, Lips, Gums, Mucous Membranes Moist Neck: NL Appearance and Movements; NL JVP, Trachea Midline Respiratory: Clear to Auscultation Cardiovascular: NL Sounds; No Murmurs; No JVD, RRR, No Edema Abdominal: NL Sounds; No Tenderness; No Distention Extremities: No Edema, No Clubbing, Cyanosis Skin: No Rash or Ulcers Neurological: Alert and Oriented x 3, NL Sensation, NL Muscle Strength and Tone Nutrition: - - currently NPO Result Diagrams: 04/02/18 10:26 04/02/18 07:18 Additional Lab and Data: Lab Results 04/01/18 04/01/18 04/01/18 Range/Units 16:00 16:00 16:00 WBC 9.9 (3.5-10.8) 10^3/ul RBC 3.22 L (4.00-5.40) 10^6/ul Hgb 7.4 L (14.0-18.0) g/dl Hct 24 L (42-52) % MCV 74 L (80-94) fL MCH 23 L (27-31) pg MCHC 31 (31-36) g/dl RDW 15 (10.5-15) % Plt Count 348 (150-450) 10^3/ul MPV 7.4 (7.4-10.4) fL Neut % (Auto) 74.8 % Lymph % (Auto) 14.4 % Fisher % (Auto) 7.3 % Eos % (Auto) 1.9 % Baso % (Auto) 1.6 % Absolute Neuts (auto) 7.4 (1.5-7.7) 10^3/ul Absolute Lymphs (auto) 1.4 (1.0-4.8) 10^3/ul Absolute Monos (auto) 0.7 (0-0.8) 10^3/ul Absolute Eos (auto) 0.2 (0-0.6) 10^3/ul Absolute Basos (auto) 0.2 (0-0.2) 10^3/ul Absolute Nucleated RBC 0 10^3/ul Nucleated RBC % 0 INR (Anticoag Therapy) 1.06 H (0.77-1.02) APTT 25.7 L (26.0-36.3) seconds Sodium 136 (135-145) mmol/L Potassium 4.1 (3.5-5.0) mmol/L Chloride 105 (101-111) mmol/L Carbon Dioxide 27 (22-32) mmol/L Anion Gap 4 (2-11) mmol/L BUN 15 (6-24) mg/dL Creatinine 0.89 (0.67-1.17) mg/dL Est GFR ( Amer) 107.0 (>60) Est GFR (Non-Af Amer) 88.4 (>60) BUN/Creatinine Ratio 16.9 (8-20) Glucose 105 H (70-100) mg/dL Lactic Acid (0.5-2.0) mmol/L Calcium 8.9 (8.6-10.3) mg/dL Magnesium 2.0 (1.9-2.7) mg/dL Total Bilirubin 0.30 (0.2-1.0) mg/dL AST 12 L (13-39) U/L ALT 10 (7-52) U/L Alkaline Phosphatase 42 (34-104) U/L Troponin I 0.00 (<0.04) ng/mL Total Protein 5.8 L (6.4-8.9) g/dL Albumin 3.4 (3.2-5.2) g/dL Globulin 2.4 (2-4) g/dL Albumin/Globulin Ratio 1.4 (1-3) Blood Type Antibody Screen Crossmatch 04/01/18 04/01/18 Range/Units 16:00 16:00 WBC (3.5-10.8) 10^3/ul RBC (4.00-5.40) 10^6/ul Hgb (14.0-18.0) g/dl Hct (42-52) % MCV (80-94) fL MCH (27-31) pg MCHC (31-36) g/dl RDW (10.5-15) % Plt Count (150-450) 10^3/ul MPV (7.4-10.4) fL Neut % (Auto) % Lymph % (Auto) % Fisher % (Auto) % Eos % (Auto) % Baso % (Auto) % Absolute Neuts (auto) (1.5-7.7) 10^3/ul Absolute Lymphs (auto) (1.0-4.8) 10^3/ul Absolute Monos (auto) (0-0.8) 10^3/ul Absolute Eos (auto) (0-0.6) 10^3/ul Absolute Basos (auto) (0-0.2) 10^3/ul Absolute Nucleated RBC 10^3/ul Nucleated RBC % INR (Anticoag Therapy) (0.77-1.02) APTT (26.0-36.3) seconds Sodium (135-145) mmol/L Potassium (3.5-5.0) mmol/L Chloride (101-111) mmol/L Carbon Dioxide (22-32) mmol/L Anion Gap (2-11) mmol/L BUN (6-24) mg/dL Creatinine (0.67-1.17) mg/dL Est GFR ( Amer) (>60) Est GFR (Non-Af Amer) (>60) BUN/Creatinine Ratio (8-20) Glucose (70-100) mg/dL Lactic Acid 0.5 (0.5-2.0) mmol/L Calcium (8.6-10.3) mg/dL Magnesium (1.9-2.7) mg/dL Total Bilirubin (0.2-1.0) mg/dL AST (13-39) U/L ALT (7-52) U/L Alkaline Phosphatase (34-104) U/L Troponin I (<0.04) ng/mL Total Protein (6.4-8.9) g/dL Albumin (3.2-5.2) g/dL Globulin (2-4) g/dL Albumin/Globulin Ratio (1-3) Blood Type B Positive Antibody Screen Negative Crossmatch See Detail Microbiology and Other Data: Microbiology 04/01/18 19:05 Stool Occult Blood (DUSTIN) - Final Stool Assess/Plan/Problems-Billing Assessment: This is a 58 year old male with hx of connor-en-y bypass in 2002 that presented with abnormal labs/anemia, 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 - Patient Problems (1) Anemia Code(s): D64.9 - ANEMIA, UNSPECIFIED SNOMED Code(s): 573479694 Comment: - Acute on chronic? - Etiology nutritional 2/2 gastric bypass vs GIB vs both - No melena, hemoccult positive - GI consulted, will likely be scoped this afternoon to assess for upper GIB - Obtain records from scope last month at [facility] - NPO, protonix (2) Morbid obesity with BMI of 40.0-44.9, adult Code(s): E66.01 - MORBID (SEVERE) OBESITY DUE TO EXCESS CALORIES; Z68.41 - BODY MASS INDEX (BMI) 40.0-44.9, ADULT SNOMED Code(s): 373127452 Comment: - Connor-en-Y in 2002 - supportive care Status and Disposition: Inpatient, dispo to home when medically stable.
--- NOTE | 2018-04-02 14:23 | CONS ---
GASTROENTEROLOGY CONSULT REPORT: DATE OF CONSULT: 04/02/18 REQUESTING PROVIDER: Christie Bartholomew NP REASON FOR CONSULT: Consult requested for anemia. HISTORY OF PRESENT ILLNESS: Mr. Hawk is a 58-year-old gentleman with obesity, status post Connor-en-Y gastric bypass in 2002, anemia, hypertension, gout, hyperlipidemia, and pulmonary nodule, who is admitted for symptomatic anemia. Mr. Hawk reports that he has had progressive dizziness, shortness of breath and fatigue for the past 4 to 6 weeks. He has not seen any overt GI bleeding. He underwent blood work routinely as an outpatient through oncology ( following for pulm nodule) and was noted to have hemoglobin of 7.4 and hematocrit 24. He was instructed to present to the ER for evaluation and admission. He was given 2 units of blood. Subsequent blood counts have demonstrated hemoglobin of 8.4 and hematocrit of 27. GI was consulted. On interview, Mr. Hawk states that he is feeling a bit better with a less fatigue and shortness of breath since receiving the transfusions. He has a history of anemia and was seen by Dr. Felipe Rolle in the past. An EGD in August 2016 noticed a small duodenal ulcer at the site of anastomosis. Followup EGD in March 2017 demonstrated resolution of this ulcer. He has been maintained on once a day iron supplementation, which up until this point has improved his anemia. He apparently also underwent an EGD in January 2018 by one of the surgeons in [place]. He recalls being told that some sutures were removed. He was also told that there was a small pouch or connection between the excluded stomach and the gastric pouch, which will need to be monitored. He did not think there were any ulcerations at the time of that endoscopy. Over the last few weeks, he denies seeing any blood in his stool. His bowel movements are twice a day and range from brown to black in color. He has attributed the darker stools to the iron supplementation. He has not noted any change in the stool frequency or consistency. He denies any abdominal pain, nausea, vomiting , dysphagia or reflux. He has had 40 pounds of weight loss, which has been intentional over the last 4 to 5 months. He remains on iron supplementation once a day as mentioned earlier. He also takes Prilosec once a day. He does not use any NSAIDs. Last colonoscopy was by Dr. Rolle in April 2016 at which point 3 adenomas were removed. PAST MEDICAL HISTORY: Medical history notable for: 1. Obesity with Connor-en-Y gastric bypass in 2002. 2. Hypertension. 3. Hyperlipidemia. 4. Anemia as discussed above. 5. Gout. 6. Kidney stones. PAST SURGICAL HISTORY: The bypass as mentioned above, also cholecystectomy, hernia repair and knee replacement MEDICATIONS: 1. Iron 325 mg daily. 2. Omeprazole 20 mg daily. 3. Vitamin D. 4. Multivitamin. 5. Vitamin B12. 6. Vitamin C. 7. Fish oil. 8. Fenofibrate. 9. Pindolol. 10. Allopurinol. 11. Ventolin inhaler. ALLERGIES: ASPIRIN, BEES, CAFFEINE, CODEINE, CONTRAST, PENICILLIN AND STATINS. FAMILY HISTORY: No GI or liver disease in family. SOCIAL HISTORY: Former smoker, quit 45 years ago. No alcohol or drug use. REVIEW OF SYSTEMS: The patient reports a bit of abdominal discomfort at the site of the incisional hernia, which is intermittent. Denies any other symptoms as mentioned above. A 12-point review of systems was reviewed with the patient. PHYSICAL EXAM: Vital Signs: Afebrile, heart rate in the 70s, blood pressure 138/70. General: Well-appearing, obese gentleman resting in bed, appears comfortable, in no acute distress. HEENT: Mucous membranes moist. Anicteric sclerae. Cardiovascular: Regular rate and rhythm. No murmurs. Pulm: Lungs clear to auscultation. Abdomen: Obese, soft, nontender, nondistended. Extremities: No significant edema. DIAGNOSTIC STUDIES/LAB DATA: Reviewed. White count normal at 9.9, hemoglobin on admission 7.4, hematocrit 24. This is in comparison to hemoglobin of 12.5 in October 2017. Most recent hemoglobin is 8.5 and hematocrit 27 -- after 2 units of blood. Platelets have been normal. INR is normal. Comprehensive panel normal including BUN and creatinine. Iron studies demonstrated percent saturation of 3% , iron less than 15, ferritin 3.6. Imaging: Chest x-ray performed on admission, which was unremarkable. Procedures: EGD and colonoscopy reports reviewed and summarized in HPI. The patient's recent endoscopy in January 2018 in [place] is not available for review today, although this will be requested. IMPRESSION/RECOMMENDATIONS: Mr. Hawk is a 58-year-old gentleman with history of obesity, status post gastric bypass in 2002 and complicated by anastomotic ulcer in August 2016, anemia on iron supplementation, hypertension, hyperlipidemia, and history of gout, who is admitted with symptomatic anemia without overt GI bleeding. Mr. Hawk is certainly quite iron deficient on presentation, although he denies seeing any blood in his stool. Melena possible, although dark stools may also be related to iron supplementation. His blood count has responded to 2 units of blood and remained stable, although the response is a bit less of a robust response than would be expected with 2 units. Presentation more suggestive of possible slow or chronic GI blood loss. Patient does have a history of anastomotic ulcer in August 2016 and is at risk for recurrent anastomotic or marginal ulcers. He says that he had an upper endoscopy in January by a surgeon, at which point suture material was removed, but he recalls being told there was no inflammation or ulceration at that time. At this point, my recommendation would be to keep patient n.p.o. I will plan to do an EGD today to evaluate for any source of upper GI blood loss. Continue to monitor his CBC and continue PPI b.i.d. It would appear that he needs to have increased iron supplementation given his quite low iron level. Would avoid NSAIDs. Please obtain recent endoscopy report from [place]. Further recommendations to follow after endoscopy. Thank you for this consult. [id number]/[facility] #: [id number] PATY
[2018-04-02] MEDS ORDERED: Docusate CAP* 100 MG PO PRN (16:51)
[2018-04-02] MEDS: Ferrous Sulfate TAB* 325 MG PO SCH (20:29)
--- NOTE | 2018-04-03 00:30 | PRO ---
CC: Dr. Consuelo Corey PROCEDURE REPORT: DATE OF PROCEDURE: 04/02/18 PRIMARY CARE PHYSICIAN: Dr. Consuelo Corey. PROCEDURE: EGD with biopsy. INDICATION: History of gastric bypass in 2002. Prior small marginal ulcer noted in 2017. Now with symptomatic anemia. Positive stool occult, although no overt bleeding. MEDICATIONS GIVEN: 1. Midazolam 12 IV. 2. Fentanyl 100 mcg IV. DESCRIPTION OF PROCEDURE: Full disclosure of risks was reviewed with the patient as detailed on the consent form. The patient was placed in the left lateral decubitus position and monitored with continuous pulse oximetry, interval blood pressure monitoring, and direct observation. A bite-block was placed between the teeth. An Olympus gastroscope was then inserted into the patient's mouth and advanced down into the esophagus, into the stomach, and into the distal duodenum. Findings are detailed below. FINDINGS: Esophagus was a normal tubular structure without rings or strictures. The scope was passed into the remnant stomach. The remnant stomach appeared to contain a small opening proximal to the anastomosis. The remnant and anastomosis were examined. There was no fresh or old blood seen. There was at least 2 parts of visible suture or staple material at anastomosis line. There was no evidence of anastomotic ulceration. The scope was then advanced into the Connor limb for 30 cm. There were no erosions or ulcers. There was no evidence of fresh or old blood. The scope was withdrawn back into the remnant stomach. Biopsy obtained and sent for CLOtest. The scope was then withdrawn from the patient. The patient tolerated the procedure well and was recovered in the GI recovery area. IMPRESSION: 1. Visible suture material seen at the anastomosis. No ulceration. 2. No evidence of upper gastrointestinal bleeding identified during this exam. 3. 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 The lumen of this was too small to intubate with the scope. RECOMMENDATIONS: 1. Await CLOtest. 2. Continue PPI. 3. Advance diet. 4. Monitor blood counts. 5. Increase iron supplementation as the patient is quite iron deficient. No clear source of iron deficiency from a GI bleeding standpoint identified during this exam. If the patient remains stable, then would recommend followup in GI Clinic to discuss if further workup as indicated. This may include repeat colonoscopy and/or small bowel imaging. 6. Would consider obtaining an upper GI series to more definitively evaluate for the presence of a gastrogastric fistula. Thank you very much for this consult. [id number]/[facility] #: [id number] PATY
[2018-04-03 07:59] VITALS: BP 150/72
[2018-04-03] MEDS: Ferrous Sulfate TAB* 325 MG PO SCH (08:59)
[2018-04-03] MEDS ORDERED: Omeprazole CAP* 20 MG PO SCH (09:00)
--- NOTE | 2018-04-04 08:24 | DS ---
CC: Dr. Eduardo Braun; Dr. Vi Zaldivar; Dr. Consuelo Corey * DISCHARGE SUMMARY: DATE OF ADMISSION: 04/01/18 DATE OF DISCHARGE: 04/03/18 PRIMARY CARE PROVIDER: Dr. Consuelo Corey. ATTENDING FOR THIS ADMISSION: Dr. Eduardo Braun.* (DICTATED BY EDWIN OGLESBY NP) HISTORY OF PRESENT ILLNESS: Please see admission H and P dated ; however, in short, this is a pleasant 58-year-old male patient who was in to see Dr. Dafne Garza regarding some followup lab work. It was noted at that time that the patient had some significant anemia. The patient does have history of Connor-en-Y gastric bypass. His anemia started interfering with his everyday life. He stated that he had some difficulty completing tasks at home having to catch his breath, feeling fatigued and having some exertional dyspnea. The patient did have an endoscopy last month at [facility]. At that time, it showed that he may have had a small fistula near the pouch from his Connor-en-Y bypass. He also has some baseline anemia that may or may not be related to his gastric bypass surgery; however, his hemoglobin at admission was 7.4 with a hematocrit of 24 and for those reasons, he was admitted to the hospital for further evaluation for GI bleeding. The patient was seen by Dr. Zaldivar. He underwent a brief endoscopy, which did not show any disruptions to the gastric mucosa, the pouch was evaluated. He did not have any ulcerations. Again, this small fistula area was noted but it did not seem to be contributing to his current anemia. The patient already does take ferrous sulfate. He is iron deficient. Per the recommendations from GI, the patient should be increased on his ferrous sulfate. His hemoglobin did improve to 8.5 on 04/02/18. He did receive 1 unit of packed red cells and had a guaiac-positive stool in the emergency department. The patient was placed on PPI. Iron studies were conducted exhibiting iron deficiency. His shortness of breath and dizziness resolved. Endoscopic procedure is as above. Please also refer to Dr. Hank Richey's procedure report. The patient was stabilized and ready for discharge on 04/03/18. At that time, there were no changes to his medications other than continuing PPI and adding additional ferrous sulfate to 3 times a day as opposed to 2 times per day. DISCHARGE DIAGNOSES: 1. Anemia, iron deficiency versus GI bleeding, now resolved. 2. Shortness of breath and dizziness secondary to #1. 3. History of hypertension. 4. History of hyperlipidemia. 5. History of gout. 6. Morbid obesity status post Connor-en-Y gastric bypass. MEDICATIONS: At discharge include: 1. Ferrous sulfate 325 mg 3 times a day, which is a change in dose. 2. Colace 100 mg daily as needed which is new. 3. Omeprazole 20 mg daily, to be continued. 4. Vitamin C 500 mg daily. 5. Benzonatate caps 100 mg 3 times a day as needed. 6. Vitamin D3 1000 units daily. 7. Vitamin B12 1000 mcg daily. 8. Multivitamin 1 tablet daily. 9. Allopurinol 300 mg p.o. daily. 10. Fenofibrate 145 mg daily. 11. Mesa-3 fatty acids 1000 mg daily. 12. Albuterol inhaler 2 puffs q.6 hours as needed. DISPOSITION: The patient was discharged to home. All questions were answered. The patient stated his understanding of his discharge instructions and medications. FOLLOWUP: The patient was instructed to follow up with Dr. Dafne Garza in the next 1 to 2 weeks, Dr. Consuelo Corey in the next 1 to 2 weeks, Dr. Hank Richey in the next month for potential scheduling of colonoscopy. The patient was also instructed to follow up again with his surgeon at [facility], who initially performed his Connor-en-Y procedure to determine if revision surgery would be necessary. He should be monitored closely by his surgical team. Again , the patient is discharged in stable condition. Diet as tolerated. Activity as tolerated. Medications as above. TIME SPENT: Thirty five minutes counseling the patient, interfacing with staff , and coordinating discharge planning. EDWIN OGLESBY, B[place] [id number]/[facility] #: [id number] PATY
== END 2018-04-03 12:20 | disposition home or self-care (01) | DRG 663 ==
LOC: ED 13:12 → MED 19:21
PROVIDERS: ADMIT Hospitalist; ATTEND Internal Medicine
PROC: 30233N1 Transfusion of Nonautologous Red Blood Cells into Peripheral Vein, Percutaneous Approach (ICD-10-PCS; principal; 2018-04-01)
PROC: 0DB68ZX Excision of Stomach, Via Natural or Artificial Opening Endoscopic, Diagnostic (ICD-10-PCS; 2018-04-02)
DX: D62 Acute posthemorrhagic anemia (principal); K31.6 Fistula of stomach and duodenum; Z68.41 Body mass index [BMI] 40.0-44.9, adult; K92.1 Melena; E66.01 Morbid (severe) obesity due to excess calories; D50.0 Iron deficiency anemia secondary to blood loss (chronic); I10 Essential (primary) hypertension; E78.5 Hyperlipidemia, unspecified; M10.9 Gout, unspecified; R91.1 Solitary pulmonary nodule; Z98.84 Bariatric surgery status; Z79.899 Other long term (current) drug therapy; Z88.5 Allergy status to narcotic agent; Z88.0 Allergy status to penicillin; Z88.8 Allergy status to other drugs, medicaments and biological substances; Z88.6 Allergy status to analgesic agent; Z91.030 Bee allergy status; Z91.041 Radiographic dye allergy status; Z82.49 Family history of ischemic heart disease and other diseases of the circulatory system; Z83.3 Family history of diabetes mellitus; Z80.3 Family history of malignant neoplasm of breast; Z80.42 Family history of malignant neoplasm of prostate; Z87.891 Personal history of nicotine dependence
CPT/HCPCS: 36415; 71045; 80048; 80053; 82272; 82728; 83540; 83550; 83605; 83735; 84484; 85014; 85018; 85025; 85610; 85730; 86850; 86900; 86901; 86922; 87077; 93005; 99156; 99157; 99284; A9270-GY; G8978-GP-CI; G8979-GP-CI; G8980-GP-CI; J2250; J3010; P9040

== ENCOUNTER 2018-07-28 05:43 | Day surgery (SDC) | payer BC ==
[~2018-07-28 05:43] MED LIST: Acetaminophen TAB* 325 MG PO PRN; Buffered Lidocaine 1% SYRIN* 1 ML/SYRINGE INTRADERM ONE; DiMENhydriNATE IV* 50 MG/ML VIAL IV PUSH PRN; Naloxone* 0.4 MG/ML 1 ML VIAL IV PRN; Ondansetron TAB* 4 MG PO ONE; PROCHLORPERAZINE INJ 5 MG/ML 2 ML VIAL IV PRN; fentaNYL* 50 MCG/ML 2 ML VIAL (100 MCG VIAL) IV PRN
[2018-07-28] MEDS ORDERED: Lactated Ringers 1000 ML Bag* 1,000 ML IV SCH (06:00)
[2018-07-28] MEDS ORDERED: Dexamethasone TAB* 4 MG PO ONE (06:00)
[2018-07-28] MEDS ORDERED: Famotidine IV* 10 MG/ML 2 ML (20 mg) IV ONE (06:00)
[2018-07-28] MEDS ORDERED: Dexamethasone TAB* 4 MG ONE (06:13)
[2018-07-28] MEDS ORDERED: Ondansetron ODT TAB* 4 MG ONE (06:13)
[2018-07-28] MEDS ORDERED: Famotidine IV* 10 MG/ML 2 ML (20 mg) ONE (06:14)
[2018-07-28] MEDS ORDERED: Clindamycin 900 MG/D5W BAG(*) 900 MG/50 ML BAG IVPB ONE (06:14)
[2018-07-28] MEDS ORDERED: Lidocaine 1% INJ* 10 MG/ML 30 ML SDV ONE (07:08)
[2018-07-28] MEDS ORDERED: fentaNYL* 50 MCG/ML 2 ML VIAL (100 MCG VIAL) ONE ×2 (07:16→07:46)
[2018-07-28] MEDS ORDERED: Midazolam* 1 MG/ML 5 ML VIAL (5 MG) ONE (07:16)
[2018-07-28] MEDS ORDERED: Midazolam* 1 MG/ML 2 ML VIAL (2 MG) ONE (07:46)
[2018-07-28 08:50] VITALS: BP 142/92
--- NOTE | 2018-07-28 12:13 | OP ---
CC: Dr. Wilton Jacob; Dr. Corey; Dr. Garza* OPERATIVE REPORT: DATE OF OPERATION: 07/28/18 - [facility] DATE OF : 64 SURGEON: Wilton aJcob MD. CLIENT TECHNICAL SPECIALIST: None. ANESTHESIOLOGIST: Dr. Rivera. ANESTHESIA: LMAC anesthesia. 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 OPERATIVE PROCEDURE: Placement of right subclavian 8-Romansh PowerPort. DESCRIPTION OF PROCEDURE: The patient was supine on the operative table. After adequate intravenous sedation, compression stockings, Lamar Hugger warmer, and intravenous antibiotics, the right neck and chest region were prepped with antiseptic and draped in a sterile fashion. Local infiltrative anesthesia was administrated. Approximately 3 cm right subclavian incision was created, infra pocket was created. Subclavian venipuncture was carried out. Guidewire passed under fluoroscopic guidance and catheter passed with peel-away introducer, measured and cut at 23 cm, attached to the port, which was sutured in the pocket with 2-0 Prolene. The pocket was closed with 3-0 and 5-0 Vicryl followed by Steri-Strips. The port has good blood return. It was flushed with saline solution and then the access needle was placed and heparin flush was carried out and Tegaderm dressing was placed. She tolerated the procedure well. She was brought to recovery in good condition. There were no complications. No drains. No pathologic specimens. Sponge and instrument counts were correct. ESTIMATED BLOOD LOSS: Less than 10 mL. [id number]/[facility] #: [id number] MTDD
== END 2018-07-28 08:55 | disposition home or self-care (01) ==
LOC: OR 05:43
PROVIDERS: ATTEND Surgery
DX: C17.0 Malignant neoplasm of duodenum (principal); D64.9 Anemia, unspecified; R91.8 Other nonspecific abnormal finding of lung field; I10 Essential (primary) hypertension; Z87.891 Personal history of nicotine dependence; Z98.84 Bariatric surgery status
CPT/HCPCS: 71045; 76000; A9270-GY; C1788; J1642; J2250; J3010; J8540

== ENCOUNTER 2019-05-31 15:16 | Inpatient (IN) | payer BC ==
[2019-05-31] MEDS ORDERED: NS 0.9% 1000 ML** 1,000 ML IV ONE (15:19)
--- NOTE | 2019-05-31 15:22 | ED ---
Complex/Multi-Sys Presentation - HPI Summary HPI Summary: 59 year old M arriving via ambulance complains of increased weakness, fatigue, mild LUQ abdominal pain, decreased appetite x3 days. Patient states that this morning, he had difficulty walking up the stairs. EMS denies chest pain, shortness of breath, dizziness. Symptoms rated 0/10 in severity. Symptoms aggravated by nothing. Symptoms alleviated by nothing. 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 Patient has an oncologist at [facility] whom he last saw on 05/29/2019. Patient's oncologist in [place] is Dr. Troncoso. Patient is receiving chemotherapy, last time being in April 2019. Medications reviewed. Allergies reviewed. - History Of Current Complaint Hx Obtained From: Patient, EMS Onset/Duration: Lasting Days - 3, Still Present Timing: Constant Severity Currently: None Aggravating Factor(s): Nothing Alleviating Factor(s): Nothing Associated Signs And Symptoms: Positive: Other - NEG: chest pain, shortness of breath, dizziness - Allergies/Home Medications Allergies/Adverse Reactions: Allergies Allergy/AdvReac Type Severity Reaction Status Date / Time aspirin Allergy Severe Anaphylatic Verified 05/16/19 15:33 [From Excedrin Migraine] Shock bee venom protein (honey bee) Allergy Severe Hives Verified 05/16/19 15:33 caffeine Allergy Severe Anaphylatic Verified 05/16/19 15:33 [From Excedrin Migraine] Shock Lmxksil-Fqk-Jsx Reductase Allergy Severe Unknown Verified 05/16/19 15:33 Inhibitor Reaction Details Iodinated Contrast Media Allergy Intermediate Tachycardia Verified 05/16/19 15: 33 [Iodinated Contrast- Oral and IV Dye] codeine Allergy Mild Rash Verified 05/16/19 15:33 Penicillins Allergy Mild Rash Verified 05/16/19 15:33 PMH/Surg Hx/FS Hx/Imm Hx Endocrine/Hematology History: Reports: Hx Anticoagulant Therapy, Hx Anemia - ON FERROUS SULFATE TID Denies: Hx Bone Marrow Disease, Hx Diabetes, Hx Systemic Lupus Erythematosus , Hx Sickle Cell Disease, Hx Thyroid Disease, Other Endocrine/Hematological Disorders Cardiovascular History: Reports: Hx Coronary Artery Disease - CATH IN 1999 STATED 90% BLOCKED ARTERY- RECENT STRESS TEST PT STATED NO PRO, Hx Hypertension , Other Cardiovascular Problems/Disorders - CAD, PALPITATIONS, CARDIAC CATH, ANEMIA, LOW HEMOGLOBIN, PEPTIC ULCER Denies: Hx Congestive Heart Failure, Hx Pacemaker/ICD Respiratory History: Reports: Hx Pulmonary Embolism - PE FOLLOWING TKR 2013, Hx Sleep Apnea - HX OF- BUT NOT CURRENTLY, Other Respiratory Problems/Disorders - chronic bronchitis,BLOOD CLOTS IN LUNGS Denies: Hx Asthma, Hx Chronic Obstructive Pulmonary Disease (COPD) GI History: Reports: Hx Gall Bladder Disease - removal jan 2012, Hx Gastroesophageal Reflux Disease - ON OCCASION, Hx Ulcer - HX OF PEPTIC ULCER , Other GI Disorders - multiple abd sx.; rouen-y 2002 History: Reports: Hx Kidney Stones - SURGERY 02/12/12, Other Problems/ Disorders - prior kidney stones w [facility]. Denies: Hx Dialysis, Hx Renal Disease Musculoskeletal History: Reports: Hx Arthritis - KNEES, NECK, AND BACK, Other Musculoskeletal History - knee surgery Denies: Hx Rheumatoid Arthritis Sensory History: Reports: Hx Contacts or Glasses - GLASSES Denies: Hx Cataracts, Hx Glaucoma, Hx Hearing Aid, Other Sensory Impairments Opthamlomology History: Reports: Hx Contacts or Glasses - GLASSES Denies: Hx Cataracts, Hx Glaucoma, Other Sensory Impairments Neurological History: Denies: Hx Dementia, Hx Seizures, Other Neuro Impairments/Disorders Psychiatric History: Denies: Hx Panic Disorder, Hx Substance Abuse, Other Psychiatric Issues/ Disorders - Cancer History Cancer Type, Location and Year: lung, intestinal Hx Chemotherapy: No - Surgical History Surgery Procedure, Year, and Place: Cholecystectomy 2016, KIDNEY STONE STENT REMOVED AFTER STONE PASSED, hernia repair 2013, rouen-y gastric bypass 2002, RT KNEE X2(TOTAL REPLACEMENT NOW 10/2013), CARDIAC CATH. power port placement Hx Anesthesia Reactions: No - Immunization History Date of Tetanus Vaccine: utd Date of Influenza Vaccine: utd Infectious Disease History: Denies: Hx Clostridium Difficile, Hx Hepatitis, Hx Human Immunodeficiency Virus (HIV), Hx of Known/Suspected MRSA, Hx Shingles, Hx Tuberculosis, Hx Known/ Suspected VRE, Hx Known/Suspected VRSA, History Other Infectious Disease - Family History Known Family History: Negative: Cardiac Disease - Social History Alcohol Use: None Substance Use Type: Reports: None Hx Tobacco Use: Yes Smoking Status (MU): Former Smoker Type: Cigars Amount Used/How Often: 2 CIGARS/week 20 YRS Length of Time of Smoking/Using Tobacco: 20 YRS Have You Smoked in the Last Year: Yes Review of Systems Positive: Fatigue Negative: Chest Pain Negative: Shortness Of Breath Positive: Abdominal Pain, Other - decreased appetite Neurological: Negative - Dizziness Positive: Weakness All Other Systems Reviewed And Are Negative: Yes Physical Exam - Summary Physical Exam Summary: VITAL SIGNS: Reviewed. GENERAL: Patient is an obese MALE who is lying comfortable in the stretcher. Patient is not in any acute respiratory distress. Patient is pale. HEAD AND FACE: No signs of trauma. No ecchymosis, hematomas or skull depressions. No sinus tenderness. EYES: PERRLA, EOMI x 2, No injected conjunctiva, no nystagmus. EARS: Hearing grossly intact. Ear canals and tympanic membranes are within normal limits. MOUTH: Oropharynx within normal limits. NECK: Supple, trachea is midline, no adenopathy, no JVD, no carotid bruit, no c- spine tenderness, neck with full ROM. CHEST: Symmetric, no tenderness at palpation. LUNGS: Clear to auscultation bilaterally. No wheezing or crackles. CVS: Regular rate and rhythm, S1 and S2 present, no murmurs or gallops appreciated. ABDOMEN: Soft, non-tender. No signs of distention. No rebound, no guarding, and no masses palpated. Bowel sounds are normal. EXTREMITIES: FROM in all major joints, no edema, no cyanosis or clubbing. NEURO: Alert and oriented x 3. No acute neurological deficits. Speech is normal and follows commands. SKIN: Dry and warm. Triage Information Reviewed: Yes Vital Signs Reviewed: Yes Procedures - Sedation Patient Received Moderate/Deep Sedation with Procedure: No Diagnostics - Laboratory Result Diagrams: 05/31/19 15:37 05/31/19 15:37 Lab Statement: Any lab studies that have been ordered have been reviewed, and results considered in the medical decision making process. - Radiology Abdomen x-ray Radiology Interpretation Completed By: Radiologist Summary of Radiographic Findings: PARTIAL GASTRIC OUTLET OBSTRUCTION. ED physician has reviewed this report. CXR Radiology Interpretation Completed By: Radiologist Summary of Radiographic Findings: NO EVIDENCE FOR ACTIVE CARDIOPULMONARY DISEASE. ED physician has reviewed this report. Complex Multi-Symp Course/Dx Assessment/Plan: 59 year old M arriving via ambulance complains of increased weakness, fatigue, mild LUQ abdominal pain, decreased appetite x3 days. Patient states that this morning, he had difficulty walking up the stairs. EMS denies chest pain, shortness of breath, dizziness. Symptoms rated 0/10 in severity. Symptoms aggravated by nothing. Symptoms alleviated by nothing. 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 Patient has an oncologist at [facility] whom he last saw on 05/29/2019. Patient's oncologist in [place] is Dr. Troncoso. Patient is receiving chemotherapy, last time being in April 2019. Medications reviewed. Allergies reviewed. In the ED course, the patient was placed on a radiation monitor, IV access was obtained, IV fluids started. Blood test w/o significant abnormality except for hemoglobin 8.2, hematocrit 23, sodium 131, calcium 8.1, alkaline phosphatase 854, troponin 0.05, CRP of 102.62 , BP 108, lipase 117. Abdominal x ray IMPRESSION: PARTIAL GASTRIC OUTLET OBSTRUCTION. CXR: No acute pathology. I discussed the case with Dr. Dean from oncology and he recommends for the patient to get an abdominopelvic CT with IV and PO contrast. However, the patient is allergic to IV contrast therefore he will be only given the PO contrast. The patient continues to be drinking the contrast. The patient will be signed out to Dr. Weber at shift change. She will follow-up the pelvic CT, and admission to the hospital. At this time the patient is hemodynamically stable alert and oriented 3. - Diagnoses Provider Diagnoses: Elevated troponin, Gastric outlet obstruction - Physician Notifications Discussed Care Of Patient With: Scooter Dean Time Discussed With Above Provider: 16:53 Instructed by Provider To: Other - Dr. Dean oncology recommends ordering CT Abd /Pel Discharge ED - Sign-Out/Discharge Documenting (check all that apply): Sign-Out Patient Signing out patient TO: Vianney Elliott - awaiting CT Abd/Pel and pending disposition - Discharge Plan Condition: Stable Referrals: Consuelo Grossman MD [Primary Care Provider] - - Billing Disposition and Condition Condition: STABLE - Attestation Statements Document Initiated by Scribe: Yes Documenting Scribe: Miladys Aguirre Provider For Whom Scribe is Documenting (Include Credential): Manohar Merlos MD Scribe Attestation: Miladys Siegel, scribed for Manohar Merlos MD on 05/31/19 at 1855. Scribe Documentation Reviewed: Yes Provider Attestation: The documentation as recorded by the scribe, Miladys Aguirre accurately reflects the service I personally performed and the decisions made by me, Manohar Merlos MD Status of Scribe Document: Viewed
[2019-05-31 15:55] LABS: ABS Basophils 0.1 10^3/ul (0-0.2); ABS Lymphocytes 1.1 10^3/ul (1.0-4.8); ABS Monocytes 0.7 10^3/ul (0-0.8); ABS Neutrophils 5.8 10^3/ul (1.5-7.7); Eosinophil % 0.2 %; Hematocrit 23 % (42-52); Hemoglobin 8.2 g/dL (14.0-18.0); Lymphocyte % 14.8 %; Mean Corpuscular HGB Conc 35 g/dL (31-36); Mean Corpuscular Hemoglobin 32 pg (27-31); Mean Corpuscular Volume 90 fL (80-94); Mean Platelet Volume 7.1 fL (7.4-10.4); Platelet Count 303 10^3/uL (150-450); Red Blood Count 2.59 10^6 /uL (4.18-5.48); Red Cell Distribution Width 19 % (10-15); White Blood Count 7.7 10^3/uL (3.5-10.8)
--- OUTSIDE RECORDS SUMMARY | 2019-05-31 16:22 | XMS REPORT | Continuity of Care Document ---
:1960 External Reference #:[id number] Author Name Santos Fernandez M.D., [facility]LY [facility], [facility] (transmitted by agent of provider Lydia Harris) Address [address] [place] [address] Care Team Providers Name Role Phone Consuelo Corey MD - Family Care Team Information Publications Designer Medicine Dafne Troncoso MD - Hematology & Care Team Information Publications Designer Oncology Problems Active Problems Provider Date Coronary arteriosclerosis Santos Fernandez M.D., [facility], Onset: 07/10/2013 FASPR Cervical spondylosis without Mello Wu M.D. Onset: 04/02/2014 myelopathy Localized, primary osteoarthritis Lachelle Tam M.D. Onset: 11/25/2015 Chest pain Santos Fernandez M.D., [facility], Onset: 07/24/2016 FASPR Dyspnea Santos Fernandez M.D., [facility], Onset: 08/19/2016 FASNC Closed fracture of distal end of Samara Farmer MD Onset: 12/25/2016 radius Wrist joint pain Samara Farmer MD Onset: 03/09/2017 Syncope and collapse Santos Fernandez M.D., [facility], Onset: 03/16/2017 [facility] Thoracic aortic ectasia Santos Fernandez M.D., [facility], Onset: 09/08/2017 [facility] Social History Type Date Description Comments Sex Unknown Tobacco Use Start: Unknown End: Former cigar smoker 7 per week (about 1 /00/00 per day), 25 years ETOH Use Denies alcohol use Quit 2011 Recreational Drug Use Denies Drug Use Tobacco Use Start: Unknown End: Patient is a former Cigars only, about smoker one per day. Quit 2014 Smoking Status Reviewed: 07/15/18 Patient is a former Cigars only, about smoker one per day. Quit 2014 Exercise Type/Frequency Exercises regularly Walks 3x 1 mile, 4 x 1/2 mile, per week with dog Allergies, Adverse Reactions, Alerts Active Allergies Reaction Severity Comments Date Codeine DIFFICULTY BREATHING, RASH Severe 02/03/2012 Penicillin RASH Severe 02/03/2012 Bee Sting DIFFICULTY BREATHING Severe 02/03/2012 Excedrin DIFFICULTY BREATHING, THROAT SWELLING, Severe 02/03/2012 SWELLING TO EYES AND FACE Contrast Dye Tachycardia 01/07/2018 [place] Chest congestion Inhaled 01/07/2018 Medications Active Medications SIG Qnty Indications Ordering Date Provider Clindamycin HCL 2 tablets by nuha Lisa 03/18/2015 300mg mouth 1 hour 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, [employer]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 [employer]MENT Capsules before invasive procedure Pindolol 2 tabs po qd Unknown 10mg Tablets Multivitamins 1 capsule samy;y 30caps Unknown Capsules Tricor 1 po qd Unknown 145mg Tablets Vitamin D-3 1 by mouth one Unknown 1000Units time per day Capsules Allopurinol 1 by mouth every Unknown 300mg Tablets day Vitamin C 1 by mouth every 30caps Unknown 1000mg Capsules day [place] 3-6-9 1 by mouth every Unknown 1000mg Capsules day Vitamin B-12 1 by mouth every Unknown 1000mcg day Tablets Omeprazole 1 by mouth every Unknown 20mg Capsules DR day Iron 1 by mouth 3x Unknown 325mg Tablets day Ventolin HFA As needed Unknown 108(90Base) mcg/Act Aerosol Enoxaparin Sodium 1 injection Unknown twice a day 120mg/0.8ML Solution (last dose tonight 07/15/18) Ondansetron HCL as needed Tisha Healy, 4mg Tablets [employer] Prochlorperazine as needed HealyTisha, Maleate [employer]NA[employer] 10mg Tablets Medications Administered in Office Medication SIG Qnty Indications Ordering Provider Date Depomedrol 40MG ATTILA Valencia 04/28/2017 Injection Depomedrol 40MG Lachelle Tam M.D. 09/14/2016 Injection Technetium TC 99M Ica Nuclear Schedule 08/06/2016 Tetrofosmin, Per Unit Dose Up To 40 Millicuries Injection Inj, Regadenoson, 0.1 MG Obi Haley, DO FACC 08/03/2016 Injection Technetium TC 99M Obi SKailyn Haley, DO FACC 08/03/2016 Tetrofosmin, Per Unit Dose Up To 40 Millicuries Injection Depomedrol 40MG Lachelle Tam M.D. 10/21/2015 Injection Inj, Regadenoson, 0.1 MG Santos Fernandez M.D., 10/20/2013 Injection FACC, FASNC Inj, Regadenoson, 0.1 MG POLINA Parikh 10/20/2013 Injection Technetium TC 99M Santos Fernandez M.D., 10/20/2013 Tetrofosmin, Per Unit Dose FACC, FASNC Up To 40 Millicuries Injection Technetium TC 99M POLINA Parikh 10/20/2013 Tetrofosmin, Per Unit Dose Up To 40 Millicuries Injection Depomedrol 80MG Lachelle Tam M.D. 09/18/2013 Injection Inj, Regadenoson, 0.1 MG Santos Fernandez M.D., 07/25/2012 Injection FACC, FASNC Technetium TC 99M Santos Fernandez M.D., 07/25/2012 Tetrofosmin, Per Unit Dose FACC, FASNC Up To 40 Millicuries Injection Depomedrol 80MG ATTILA Lindsey 04/14/2010 Injection Immunizations Description No Information Available Vital Signs Date Vital Result Comment 07/15/2018 10:40am Height 69 inches 5'9" Weight 269.00 lb Heart Rate 72 /min BP Systolic Sitting 118 mmHg BP Diastolic Sitting 78 mmHg Respiratory Rate 18 /min Body Temperature 97.8 F BMI (Body Mass Index) 39.7 kg/m2 06/02/2018 10:59am Height 69 inches 5'9" Weight 278.00 lb Heart Rate 58 /min BP Systolic 116 mmHg BP Diastolic 78 mmHg Respiratory Rate 18 /min Body Temperature 98.1 F BMI (Body Mass Index) 41.0 kg/m2 Results Test Acquired Date Facility Test Result H/L Range Note CBC Auto 05/23/2019 [facility] White Blood 7.7 10^3/uL Normal 3.5-10.[address] [place] [address] [phone] Red Blood Count 2.72 10^6/uL Low 4.18-5.48 Hemoglobin 8.5 g/dL Low 14.0-18.0 Hematocrit 25 % Low 42-52 Mean Corpuscular Volume 92 fL Normal 80-94 Mean Corpuscular Hemoglobin 31 pg Normal 27-31 Mean Corpuscular HGB Conc 34 g/dL Normal 31-36 Red Cell Distribution Width 18 % High 10-15 Platelet Count 269 10^3/uL Normal 150-450 Mean Platelet Volume 7.8 fL Normal 7.4-10.4 Abs Neutrophils 5.9 10^3/uL Normal 1.5-7.7 Abs Lymphocytes 0.8 10^3/uL Low 1.0-4.8 Abs Monocytes 0.9 10^3/uL High 0-0.8 Abs Eosinophils 0.1 10^3/uL Normal 0-0.6 Abs Basophils 0.1 10^3/uL Normal 0-0.2 Abs Nucleated RBC 0.0 10^3/uL Granulocyte % 76.3 % Lymphocyte % 10.0 % Monocyte % 12.0 % Eosinophil % 1.0 % Basophil % 0.7 % Nucleated Red Blood Cells % 0.0 Comp Metabolic 05/23/2019 [facility] Sodium 135 mmol/L Normal 135-[address] [place] [address] [phone] Potassium 4.1 mmol/L Normal 3.5-5.0 Chloride 103 mmol/L Normal 101-111 Co2 Carbon Dioxide 27 mmol/L Normal 22-32 Anion Gap 5 mmol/L Normal 2-11 Glucose 95 mg/dL Normal 70-100 Blood Urea Nitrogen 15 mg/dL Normal 6-24 Creatinine 0.46 mg/dL Low 0.67-1.17 BUN/Creatinine Ratio 32.6 High 8-20 Calcium 8.1 mg/dL Low 8.6-10.3 Total Protein 4.7 g/dL Low 6.4-8.9 Albumin 2.3 g/dL Low 3.2-5.2 Globulin 2.4 g/dL Normal 2-4 Albumin/Globulin Ratio 1.0 Normal 1-3 Total Bilirubin 0.90 mg/dL Normal 0.2-1.0 Alkaline Phosphatase 626 U/L High 34-104 Alt 33 U/L Normal 7-52 Ast 35 U/L Normal 13-39 Egfr Non- 188.7 >60 Egfr 228.3 >60 1 Laboratory 05/23/2019 [facility] Magnesium 1.8 mg/dL Low 1.9- 2.7 test finding [address] [place] [address] [phone] Laboratory 05/19/2019 [facility] Blood Culture SEE RESULT 2 , 3 test finding [address] [place] [address] [phone] Laboratory 05/19/2019 [facility] Blood Culture SEE RESULT 4 , 5 test finding [address] [place] [address] [phone] CBC Auto Diff 05/19/2019 [facility] White Blood 14.0 High 3.5- 10.[address] Count 10^3/uL [place], [place] [id number] [phone] Red Blood Count 3.32 10^6/uL Low 4.18-5.48 Hemoglobin 10.0 g/dL Low 14.0-18.0 Hematocrit 31 % Low 42-52 Mean Corpuscular Volume 92 fL Normal 80-94 Mean Corpuscular Hemoglobin 30 pg Normal 27-31 Mean Corpuscular HGB Conc 33 g/dL Normal 31-36 Red Cell Distribution Width 18 % High 10-15 Platelet Count 412 10^3/uL Normal 150-450 Mean Platelet Volume 7.9 fL Normal 7.4-10.4 Abs Neutrophils 12.1 10^3/uL High 1.5-7.7 Abs Lymphocytes 0.7 10^3/uL Low 1.0-4.8 Abs Monocytes 1.0 10^3/uL High 0-0.8 Abs Eosinophils 0.0 10^3/uL Normal 0-0.6 Abs Basophils 0.1 10^3/uL Normal 0-0.2 Abs Nucleated RBC 0.0 10^3/uL Granulocyte % 86.4 % Lymphocyte % 5.3 % Monocyte % 7.4 % Eosinophil % 0.3 % Basophil % 0.6 % Nucleated Red Blood Cells % 0.1 Comp Metabolic Panel 05/19/2019 [facility] Sodium 134 mmol/L Low 135-145 [address] [place] [address] [phone] Potassium 4.4 mmol/L Normal 3.5-5.0 Chloride 102 mmol/L Normal 101-111 Co2 Carbon Dioxide 24 mmol/L Normal 22-32 Anion Gap 8 mmol/L Normal 2-11 Glucose 90 mg/dL Normal 70-100 Blood Urea Nitrogen 17 mg/dL Normal 6-24 Creatinine 0.55 mg/dL Low 0.67-1.17 BUN/Creatinine Ratio 30.9 High 8-20 Calcium 8.2 mg/dL Low 8.6-10.3 Total Protein 4.8 g/dL Low 6.4-8.9 Albumin 2.5 g/dL Low 3.2-5.2 Globulin 2.3 g/dL Normal 2-4 Albumin/Globulin Ratio 1.1 Normal 1-3 Total Bilirubin 1.60 mg/dL High 0.2-1.0 Alkaline Phosphatase 518 U/L High 34-104 Alt 37 U/L Normal 7-52 Ast 51 U/L High 13-39 Egfr Non- 153.5 >60 Egfr 185.8 >60 6 Laboratory test 05/19/2019 [facility] Magnesium 1.8 mg/dL Low 1.9-2.7 finding [address] [place] [address] [phone] CBC Auto Diff 05/15/2019 [facility] White Blood 6.2 Normal 3.5 -10.[address] [facility] Count 10^3/[place] [address] [phone] Red Blood Count 2.70 10^6/uL Low 4.18-5.48 Hemoglobin 8.3 g/dL Low 14.0-18.0 Hematocrit 25 % Low 42-52 Mean Corpuscular Volume 94 fL Normal 80-94 Mean Corpuscular Hemoglobin 31 pg Normal 27-31 Mean Corpuscular HGB Conc 33 g/dL Normal 31-36 Red Cell Distribution Width 18 % High 10-15 Platelet Count 291 10^3/uL Normal 150-450 Mean Platelet Volume 7.8 fL Normal 7.4-10.4 Abs Neutrophils 4.7 10^3/uL Normal 1.5-7.7 Abs Lymphocytes 0.7 10^3/uL Low 1.0-4.8 Abs Monocytes 0.7 10^3/uL Normal 0-0.8 Abs Eosinophils 0.1 10^3/uL Normal 0-0.6 Abs Basophils 0.0 10^3/uL Normal 0-0.2 Abs Nucleated RBC 0.0 10^3/uL Granulocyte % 76.0 % Lymphocyte % 10.6 % Monocyte % 11.6 % Eosinophil % 1.4 % Basophil % 0.4 % Nucleated Red Blood Cells % 0.1 Comp Metabolic 05/15/2019 [facility] Sodium 135 mmol/L Normal 135-145 [place] [address] [phone] Potassium 3.9 mmol/L Normal 3.5-5.0 Chloride 106 mmol/L Normal 101-111 Co2 Carbon Dioxide 25 mmol/L Normal 22-32 Anion Gap 4 mmol/L Normal 2-11 Glucose 122 mg/dL High 70-100 Blood Urea Nitrogen 13 mg/dL Normal 6-24 Creatinine 0.54 mg/dL Low 0.67-1.17 BUN/Creatinine Ratio 24.1 High 8-20 Calcium 7.6 mg/dL Low 8.6-10.3 Total Protein 4.0 g/dL Low 6.4-8.9 Albumin 2.2 g/dL Low 3.2-5.2 Globulin 1.8 g/dL Low 2-4 Albumin/Globulin Ratio 1.2 Normal 1-3 Total Bilirubin 0.50 mg/dL Normal 0.2-1.0 Alkaline Phosphatase 420 U/L High 34-104 Alt 29 U/L Normal 7-52 Ast 29 U/L Normal 13-39 Egfr Non- 156.8 >60 Egfr 189.8 >60 7 Type & Screen 05/15/2019 [facility] Patient Blood [place] [address] [phone] Antibody Screen NEGATIVE Laboratory test 05/15/2019 [facility] Packed Cells SEE RESULTS [address] <[place] [address] NOTE> [phone] Laboratory test 05/10/2019 [facility] Magnesium 2.0 mg/dL Normal 1.9-[address] [place], [place] [id number] [phone] Comp Metabolic 05/10/2019 [facility] Sodium 134 mmol/L Low 135 -[address] [place] [address] [phone] Potassium 4.3 mmol/L Normal 3.5-5.0 Chloride 103 mmol/L Normal 101-111 Co2 Carbon Dioxide 25 mmol/L Normal 22-32 Anion Gap 6 mmol/L Normal 2-11 Glucose 87 mg/dL Normal 70-100 Blood Urea Nitrogen 15 mg/dL Normal 6-24 Creatinine 0.65 mg/dL Low 0.67-1.17 BUN/Creatinine Ratio 23.1 High 8-20 Calcium 8.4 mg/dL Low 8.6-10.3 Total Protein 5.5 g/dL Low 6.4-8.9 Albumin 2.8 g/dL Low 3.2-5.2 Globulin 2.7 g/dL Normal 2-4 Albumin/Globulin Ratio 1.0 Normal 1-3 Total Bilirubin 0.50 mg/dL Normal 0.2-1.0 Alkaline Phosphatase 512 U/L High 34-104 Alt 33 U/L Normal 7-52 Ast 45 U/L High 13-39 Egfr Non- 126.6 >60 Egfr 153.2 >60 9 CBC Auto 05/10/2019 [facility] White Blood 8.7 10^3/uL Normal 3.5-10.[address] [place] [address] [phone] Red Blood Count 3.12 10^6/uL Low 4.18-5.48 Hemoglobin 10.0 g/dL Low 14.0-18.0 Hematocrit 30 % Low 42-52 Mean Corpuscular Volume 95 fL High 80-94 Mean Corpuscular Hemoglobin 32 pg High 27-31 Mean Corpuscular HGB Conc 34 g/dL Normal 31-36 Red Cell Distribution Width 18 % High 10-15 Platelet Count 379 10^3/uL Normal 150-450 Mean Platelet Volume 7.4 fL Normal 7.4-10.4 Abs Neutrophils 6.8 10^3/uL Normal 1.5-7.7 Abs Lymphocytes 0.7 10^3/uL Low 1.0-4.8 Abs Monocytes 1.1 10^3/uL High 0-0.8 Abs Eosinophils 0.1 10^3/uL Normal 0-0.6 Abs Basophils 0.0 10^3/uL Normal 0-0.2 Abs Nucleated RBC 0.0 10^3/uL Granulocyte % 78.1 % Lymphocyte % 7.5 % Monocyte % 12.7 % Eosinophil % 1.1 % Basophil % 0.6 % Nucleated Red Blood Cells % 0.0 Basic Metabolic 04/07/2019 [facility] Sodium 138 mmol/L Normal 135-[address] [place] [address] [phone] Potassium 4.7 mmol/L Normal 3.5-5.0 Chloride 106 mmol/L Normal 101-111 Co2 Carbon Dioxide 30 mmol/L Normal 22-32 Anion Gap 2 mmol/L Normal 2-11 Calcium 8.7 mg/dL Normal 8.6-10.3 Glucose 75 mg/dL Normal 70-100 Blood Urea Nitrogen 17 mg/dL Normal 6-24 Creatinine 0.69 mg/dL Normal 0.67-1.17 BUN/Creatinine Ratio 24.6 High 8-20 Egfr Non- 118.2 >60 Egfr 143.0 >60 10 Basic Metabolic 04/05/2019 [facility] Sodium 136 mmol/L Normal 135-[address] [place] [address] [phone] Potassium 4.0 mmol/L Normal 3.5-5.0 Chloride 106 mmol/L Normal 101-111 Co2 Carbon Dioxide 26 mmol/L Normal 22-32 Anion Gap 4 mmol/L Normal 2-11 Glucose 93 mg/dL Normal 70-100 Blood Urea Nitrogen 9 mg/dL Normal 6-24 Creatinine 0.57 mg/dL Low 0.67-1.17 BUN/Creatinine Ratio 15.8 Normal 8-20 Calcium 7.9 mg/dL Low 8.6-10.3 Egfr Non- 147.3 >60 Egfr 178.3 >60 11 CBC Auto 04/03/2019 [facility] White Blood 6.9 10^3/uL Normal 3.5-10.[address] [place] [address] [phone] Red Blood Count 3.17 10^6/uL Low 4.18-5.48 Hemoglobin 10.1 g/dL Low 14.0-18.0 Hematocrit 30 % Low 42-52 Mean Corpuscular Volume 95 fL High 80-94 Mean Corpuscular Hemoglobin 32 pg High 27-31 Mean Corpuscular HGB Conc 34 g/dL Normal 31-36 Red Cell Distribution Width 19 % High 10-15 Platelet Count 357 10^3/uL Normal 150-450 Mean Platelet Volume 7.7 fL Normal 7.4-10.4 Abs Neutrophils 5.0 10^3/uL Normal 1.5-7.7 Abs Lymphocytes 1.0 10^3/uL Normal 1.0-4.8 Abs Monocytes 0.8 10^3/uL Normal 0-0.8 Abs Eosinophils 0.1 10^3/uL Normal 0-0.6 Abs Basophils 0.0 10^3/uL Normal 0-0.2 Abs Nucleated RBC 0.0 10^3/uL Granulocyte % 72.4 % Lymphocyte % 14.0 % Monocyte % 11.3 % Eosinophil % 1.8 % Basophil % 0.5 % Nucleated Red Blood Cells % 0.0 Comp Metabolic 04/03/2019 [facility] Sodium 137 mmol/L Normal 135-[address] [place] [address] [phone] Potassium 3.3 mmol/L Low 3.5-5.0 Chloride 107 mmol/L Normal 101-111 Co2 Carbon Dioxide 24 mmol/L Normal 22-32 Anion Gap 6 mmol/L Normal 2-11 Glucose 80 mg/dL Normal 70-100 Blood Urea Nitrogen 7 mg/dL Normal 6-24 Creatinine 0.85 mg/dL Normal 0.67-1.17 BUN/Creatinine Ratio 8.2 Normal 8-20 Calcium 8.7 mg/dL Normal 8.6-10.3 Total Protein 5.2 g/dL Low 6.4-8.9 Albumin 3.1 g/dL Low 3.2-5.2 Globulin 2.1 g/dL Normal 2-4 Albumin/Globulin Ratio 1.5 Normal 1-3 Total Bilirubin 0.30 mg/dL Normal 0.2-1.0 Alkaline Phosphatase 140 U/L High 34-104 Alt 16 U/L Normal 7-52 Ast 14 U/L Normal 13-39 Egfr Non- 92.9 >60 Egfr 112.4 >60 12 CBC Auto 03/29/2019 [facility] White Blood 3.0 10^3/uL Low 3.5 -10.[address] [place] [address] [phone] Red Blood Count 2.94 10^6/uL Low 4.18-5.48 Hemoglobin 9.3 g/dL Low 14.0-18.0 Hematocrit 28 % Low 42-52 Mean Corpuscular Volume 95 fL High 80-94 Mean Corpuscular Hemoglobin 32 pg High 27-31 Mean Corpuscular HGB Conc 33 g/dL Normal 31-36 Red Cell Distribution Width 18 % High 10-15 Platelet Count 256 10^3/uL Normal 150-450 Mean Platelet Volume 7.5 fL Normal 7.4-10.4 Abs Neutrophils 2.0 10^3/uL Normal 1.5-7.7 Abs Lymphocytes 0.6 10^3/uL Low 1.0-4.8 Abs Monocytes 0.3 10^3/uL Normal 0-0.8 Abs Eosinophils 0.1 10^3/uL Normal 0-0.6 Abs Basophils 0.0 10^3/uL Normal 0-0.2 Abs Nucleated RBC 0.0 10^3/uL Granulocyte % 67.2 % Lymphocyte % 19.0 % Monocyte % 10.6 % Eosinophil % 2.1 % Basophil % 1.1 % Nucleated Red Blood Cells % 0.1 Comp Metabolic Panel 03/29/2019 [facility] Sodium 133 mmol/L Low 135-[address] [place] [id number] [phone] Potassium 3.8 mmol/L Normal 3.5-5.0 Chloride 103 mmol/L Normal 101-111 Co2 Carbon Dioxide 25 mmol/L Normal 22-32 Anion Gap 5 mmol/L Normal 2-11 Glucose 99 mg/dL Normal 70-100 Blood Urea Nitrogen 15 mg/dL Normal 6-24 Creatinine 0.69 mg/dL Normal 0.67-1.17 BUN/Creatinine Ratio 21.7 High 8-20 Calcium 8.5 mg/dL Low 8.6-10.3 Total Protein 5.3 g/dL Low 6.4-8.9 Albumin 3.0 g/dL Low 3.2-5.2 Globulin 2.3 g/dL Normal 2-4 Albumin/Globulin Ratio 1.3 Normal 1-3 Total Bilirubin 0.30 mg/dL Normal 0.2-1.0 Alkaline Phosphatase 238 U/L High 34-104 Alt 33 U/L Normal 7-52 Ast 16 U/L Normal 13-39 Egfr Non- 118.6 >60 Egfr 143.5 >60 13 Laboratory 03/29/2019 [facility] Carcinoembryonic 2.2 Normal 0.1-5.0 14 test finding [address] Antigen Cea ng/[place] [address] [phone] Laboratory 02/21/2019 [facility] Ferritin 484.2 High 24-336 test finding [address] ng/[place] [address] [phone] Comp 02/21/2019 [facility] Sodium 137 Normal 135-[address] mmol/[place] [address] [phone] Potassium 4.0 mmol/L Normal 3.5-5.0 Chloride 108 mmol/L Normal 101-111 Co2 Carbon Dioxide 24 mmol/L Normal 22-32 Anion Gap 5 mmol/L Normal 2-11 Calcium 8.5 mg/dL Low 8.6-10.3 Albumin 3.1 g/dL Low 3.2-5.2 Total Bilirubin 0.20 mg/dL Normal 0.2-1.0 Glucose 97 mg/dL Normal 70-100 Blood Urea Nitrogen 11 mg/dL Normal 6-24 Creatinine 0.63 mg/dL Low 0.67-1.17 BUN/Creatinine Ratio 17.5 Normal 8-20 Total Protein 5.1 g/dL Low 6.4-8.9 Globulin 2.0 g/dL Normal 2-4 Albumin/Globulin Ratio 1.6 Normal 1-3 Alkaline Phosphatase 97 U/L Normal 34-104 Alt 21 U/L Normal 7-52 Ast 23 U/L Normal 13-39 Egfr Non- 131.7 >60 Egfr 159.4 >60 15 Laboratory 02/21/2019 [facility] Carcinoembryonic 3.0 Normal 0.1-5.0 16 test finding [address] Antigen Cea ng/[place] [address] [phone] Iron & Iron 02/21/2019 [facility] Iron 80 Normal 50-[address] g/[place] [address] [phone] Unsaturated Iron Binding < 279 g/dL Total Iron Binding Capacity 294 g/dL Normal 250-450 Transferrin 210 mg/dL Normal 203-362 % Iron Saturation 27 % Normal 15-55 CBC Auto 02/21/2019 [facility] White Blood 5.8 10^3/uL Normal 3.5-10.[address] [place] [address] [phone] Red Blood Count 3.63 10^6/uL Low 4.18-5.48 Hemoglobin 11.4 g/dL Low 14.0-18.0 Hematocrit 34 % Low 42-52 Mean Corpuscular Volume 94 fL Normal 80-94 Mean Corpuscular Hemoglobin 31 pg Normal 27-31 Mean Corpuscular HGB Conc 33 g/dL Normal 31-36 Red Cell Distribution Width 20 % High 10-15 Platelet Count 304 10^3/uL Normal 150-450 Mean Platelet Volume 8.5 fL Normal 7.4-10.4 Abs Neutrophils 4.3 10^3/uL Normal 1.5-7.7 Abs Lymphocytes 0.7 10^3/uL Low 1.0-4.8 Abs Monocytes 0.7 10^3/uL Normal 0-0.8 Abs Eosinophils 0.1 10^3/uL Normal 0-0.6 Abs Basophils 0.0 10^3/uL Normal 0-0.2 Abs Nucleated RBC 0.0 10^3/uL Granulocyte % 73.8 % Lymphocyte % 11.4 % Monocyte % 11.9 % Eosinophil % 2.5 % Basophil % 0.4 % Nucleated Red Blood Cells % 0.0 CBC Auto 02/08/2019 [facility] White Blood 3.9 10^3/uL Normal 3.5-10.[address] [place] [address] [phone] Red Blood Count 3.47 10^6/uL Low 4.18-5.48 Hemoglobin 10.6 g/dL Low 14.0-18.0 Hematocrit 32 % Low 42-52 Mean Corpuscular Volume 93 fL Normal 80-94 Mean Corpuscular Hemoglobin 31 pg Normal 27-31 Mean Corpuscular HGB Conc 33 g/dL Normal 31-36 Red Cell Distribution Width 20 % High 10-15 Platelet Count 260 10^3/uL Normal 150-450 Mean Platelet Volume 7.8 fL Normal 7.4-10.4 Abs Neutrophils 2.5 10^3/uL Normal 1.5-7.7 Abs Lymphocytes 0.7 10^3/uL Low 1.0-4.8 Abs Monocytes 0.6 10^3/uL Normal 0-0.8 Abs Eosinophils 0.1 10^3/uL Normal 0-0.6 Abs Basophils 0.0 10^3/uL Normal 0-0.2 Abs Nucleated RBC 0.0 10^3/uL Granulocyte % 63.0 % Lymphocyte % 18.1 % Monocyte % 15.9 % Eosinophil % 2.2 % Basophil % 0.8 % Nucleated Red Blood Cells % 0.0 Comp Metabolic 02/08/2019 [facility] Sodium 138 mmol/L Normal 135-[address] [place] [address] [phone] Potassium 3.5 mmol/L Normal 3.5-5.0 Chloride 107 mmol/L Normal 101-111 Co2 Carbon Dioxide 27 mmol/L Normal 22-32 Anion Gap 4 mmol/L Normal 2-11 Glucose 83 mg/dL Normal 70-100 Blood Urea Nitrogen 7 mg/dL Normal 6-24 Creatinine 0.53 mg/dL Low 0.67-1.17 BUN/Creatinine Ratio 13.2 Normal 8-20 Calcium 8.5 mg/dL Low 8.6-10.3 Total Protein 5.2 g/dL Low 6.4-8.9 Albumin 3.2 g/dL Normal 3.2-5.2 Globulin 2.0 g/dL Normal 2-4 Albumin/Globulin Ratio 1.6 Normal 1-3 Total Bilirubin 0.20 mg/dL Normal 0.2-1.0 Alkaline Phosphatase 63 U/L Normal 34-104 Alt 14 U/L Normal 7-52 Ast 13 U/L Normal 13-39 Egfr Non- 160.8 >60 Egfr 194.6 >60 17 CBC Auto 01/24/2019 [facility] White Blood 6.0 10^3/uL Normal 3.5-10.[address] [place] [address] [phone] Red Blood Count 3.74 10^6/uL Low 4.18-5.48 Hemoglobin 11.5 g/dL Low 14.0-18.0 Hematocrit 35 % Low 42-52 Mean Corpuscular Volume 93 fL Normal 80-94 Mean Corpuscular Hemoglobin 31 pg Normal 27-31 Mean Corpuscular HGB Conc 33 g/dL Normal 31-36 Red Cell Distribution Width 20 % High 10-15 Platelet Count 308 10^3/uL Normal 150-450 Mean Platelet Volume 8.4 fL Normal 7.4-10.4 Abs Neutrophils 4.5 10^3/uL Normal 1.5-7.7 Abs Lymphocytes 0.6 10^3/uL Low 1.0-4.8 Abs Monocytes 0.8 10^3/uL Normal 0-0.8 Abs Eosinophils 0.1 10^3/uL Normal 0-0.6 Abs Basophils 0.0 10^3/uL Normal 0-0.2 Abs Nucleated RBC 0.0 10^3/uL Granulocyte % 74.6 % Lymphocyte % 10.6 % Monocyte % 12.8 % Eosinophil % 1.5 % Basophil % 0.5 % Nucleated Red Blood Cells % 0.0 Comp Metabolic 01/24/2019 [facility] Sodium 138 mmol/L Normal 135-145 Panel [address] [place] [address] [phone] Potassium 3.8 mmol/L Normal 3.5-5.0 Chloride 109 mmol/L Normal 101-111 Co2 Carbon Dioxide 21 mmol/L Low 22-32 Anion Gap 8 mmol/L Normal 2-11 Calcium 8.8 mg/dL Normal 8.6-10.3 Albumin 3.5 g/dL Normal 3.2-5.2 Total Bilirubin 0.30 mg/dL Normal 0.2-1.0 Glucose 98 mg/dL Normal 70-100 Blood Urea Nitrogen 11 mg/dL Normal 6-24 Creatinine 0.75 mg/dL Normal 0.67-1.17 BUN/Creatinine Ratio 14.7 Normal 8-20 Total Protein 5.4 g/dL Low 6.4-8.9 Globulin 1.9 g/dL Low 2-4 Albumin/Globulin Ratio 1.8 Normal 1-3 Alkaline Phosphatase 67 U/L Normal 34-104 Alt 12 U/L Normal 7-52 Ast 13 U/L Normal 13-39 Egfr Non- 107.7 >60 Egfr 130.4 >60 18 Laboratory test 01/24/2019 [facility] Magnesium 1.9 mg/dL Normal 1.9-2.7 19 finding [address] [place] [address] [phone] Carcinoembryonic Antigen Cea 3.1 ng/mL Normal 0.1-5.0 20 CBC Auto 01/11/2019 [facility] White Blood 4.2 10^3/uL Normal 3.5-10.[address] [place] [address] [phone] Red Blood Count 3.33 10^6/uL Low 4.18-5.48 Hemoglobin 10.2 g/dL Low 14.0-18.0 Hematocrit 31 % Low 42-52 Mean Corpuscular Volume 92 fL Normal 80-94 Mean Corpuscular Hemoglobin 30 pg Normal 27-31 Mean Corpuscular HGB Conc 33 g/dL Normal 31-36 Red Cell Distribution Width 20 % High 10-15 Platelet Count 284 10^3/uL Normal 150-450 Mean Platelet Volume 7.1 fL Low 7.4-10.4 Abs Neutrophils 2.7 10^3/uL Normal 1.5-7.7 Abs Lymphocytes 0.7 10^3/uL Low 1.0-4.8 Abs Monocytes 0.6 10^3/uL Normal 0-0.8 Abs Eosinophils 0.1 10^3/uL Normal 0-0.6 Abs Basophils 0.0 10^3/uL Normal 0-0.2 Abs Nucleated RBC 0.0 10^3/uL Granulocyte % 64.9 % Lymphocyte % 17.3 % Monocyte % 14.8 % Eosinophil % 2.3 % Basophil % 0.7 % Nucleated Red Blood Cells % 0.0 Comp Metabolic 01/11/2019 [facility] Sodium 138 mmol/L Normal 135-[address] [place] [address] [phone] Potassium 3.7 mmol/L Normal 3.5-5.0 Chloride 106 mmol/L Normal 101-111 Co2 Carbon Dioxide 26 mmol/L Normal 22-32 Anion Gap 6 mmol/L Normal 2-11 Glucose 105 mg/dL High 70-100 Blood Urea Nitrogen 8 mg/dL Normal 6-24 Creatinine 0.64 mg/dL Low 0.67-1.17 BUN/Creatinine Ratio 12.5 Normal 8-20 Calcium 8.6 mg/dL Normal 8.6-10.3 Total Protein 5.5 g/dL Low 6.4-8.9 Albumin 3.2 g/dL Normal 3.2-5.2 Globulin 2.3 g/dL Normal 2-4 Albumin/Globulin Ratio 1.4 Normal 1-3 Total Bilirubin 0.20 mg/dL Normal 0.2-1.0 Alkaline Phosphatase 55 U/L Normal 34-104 Alt 12 U/L Normal 7-52 Ast 14 U/L Normal 13-39 Egfr Non- 129.4 >60 Egfr 156.5 >60 21 Laboratory 01/11/2019 [facility] Carcinoembryonic 1.9 Normal 0.1-5.0 22 test finding [address] Antigen Cea ng/[place] [address] [phone] CBC Auto Diff 01/06/2019 [facility] White Blood Count 3.4 Low 3.5-10.[address] 10^3/[place] [address] [phone] Red Blood Count 3.36 10^6/uL Low 4.18-5.48 Hemoglobin 10.1 g/dL Low 14.0-18.0 Hematocrit 31 % Low 42-52 Mean Corpuscular Volume 93 fL Normal 80-94 Mean Corpuscular Hemoglobin 30 pg Normal 27-31 Mean Corpuscular HGB Conc 33 g/dL Normal 31-36 Red Cell Distribution Width 21 % High 10-15 Platelet Count 258 10^3/uL Normal 150-450 Mean Platelet Volume 7.9 fL Normal 7.4-10.4 Abs Neutrophils 2.1 10^3/uL Normal 1.5-7.7 Abs Lymphocytes 0.7 10^3/uL Low 1.0-4.8 Abs Monocytes 0.4 10^3/uL Normal 0-0.8 Abs Eosinophils 0.1 10^3/uL Normal 0-0.6 Abs Basophils 0.0 10^3/uL Normal 0-0.2 Abs Nucleated RBC 0.0 10^3/uL Granulocyte % 63.1 % Lymphocyte % 21.7 % Monocyte % 12.3 % Eosinophil % 2.6 % Basophil % 0.3 % Nucleated Red Blood Cells % 0.0 Laboratory 12/28/2018 [facility] Carcinoembryonic 2.0 Normal 0.1-5.0 23 test finding [address] Antigen Cea ng/[place] [address] [phone] Comp 12/28/2018 [facility] Sodium 136 Normal 135-[address] mmol/[place] [address] [phone] Potassium 3.8 mmol/L Normal 3.5-5.0 Chloride 107 mmol/L Normal 101-111 Co2 Carbon Dioxide 26 mmol/L Normal 22-32 Anion Gap 3 mmol/L Normal 2-11 Glucose 95 mg/dL Normal 70-100 Blood Urea Nitrogen 10 mg/dL Normal 6-24 Creatinine 0.58 mg/dL Low 0.67-1.17 BUN/Creatinine Ratio 17.2 Normal 8-20 Calcium 8.6 mg/dL Normal 8.6-10.3 Total Protein 5.5 g/dL Low 6.4-8.9 Albumin 3.3 g/dL Normal 3.2-5.2 Globulin 2.2 g/dL Normal 2-4 Albumin/Globulin Ratio 1.5 Normal 1-3 Total Bilirubin 0.30 mg/dL Normal 0.2-1.0 Alkaline Phosphatase 66 U/L Normal 34-104 Alt 13 U/L Normal 7-52 Ast 15 U/L Normal 13-39 Egfr Non- 144.9 >60 Egfr 175.4 >60 24 CBC Auto 12/28/2018 [facility] White Blood 5.1 10^3/uL Normal 3.5-10.[address] [place] [address] [phone] Red Blood Count 3.47 10^6/uL Low 4.18-5.48 Hemoglobin 10.5 g/dL Low 14.0-18.0 Hematocrit 32 % Low 42-52 Mean Corpuscular Volume 92 fL Normal 80-94 Mean Corpuscular Hemoglobin 30 pg Normal 27-31 Mean Corpuscular HGB Conc 33 g/dL Normal 31-36 Red Cell Distribution Width 20 % High 10-15 Platelet Count 302 10^3/uL Normal 150-450 Mean Platelet Volume 7.6 fL Normal 7.4-10.4 Abs Neutrophils 3.7 10^3/uL Normal 1.5-7.7 Abs Lymphocytes 0.6 10^3/uL Low 1.0-4.8 Abs Monocytes 0.6 10^3/uL Normal 0-0.8 Abs Eosinophils 0.1 10^3/uL Normal 0-0.6 Abs Basophils 0.0 10^3/uL Normal 0-0.2 Abs Nucleated RBC 0.0 10^3/uL Granulocyte % 74.1 % Lymphocyte % 11.7 % Monocyte % 11.8 % Eosinophil % 1.9 % Basophil % 0.5 % Nucleated Red Blood Cells % 0.0 CBC Auto 12/21/2018 [facility] White Blood 3.2 10^3/uL Low 3.5 -10.8 [address] [place] [address] [phone] Red Blood Count 3.24 10^6/uL Low 4.18-5.48 Hemoglobin 9.7 g/dL Low 14.0-18.0 Hematocrit 29 % Low 42-52 Mean Corpuscular Volume 91 fL Normal 80-94 Mean Corpuscular Hemoglobin 30 pg Normal 27-31 Mean Corpuscular HGB Conc 33 g/dL Normal 31-36 Red Cell Distribution Width 19 % High 10-15 Platelet Count 267 10^3/uL Normal 150-450 Mean Platelet Volume 8.1 fL Normal 7.4-10.4 Abs Neutrophils 2.1 10^3/uL Normal 1.5-7.7 Abs Lymphocytes 0.8 10^3/uL Low 1.0-4.8 Abs Monocytes 0.2 10^3/uL Normal 0-0.8 Abs Eosinophils 0.1 10^3/uL Normal 0-0.6 Abs Basophils 0.0 10^3/uL Normal 0-0.2 Abs Nucleated RBC 0.0 10^3/uL Granulocyte % 65.7 % Lymphocyte % 24.4 % Monocyte % 6.6 % Eosinophil % 2.6 % Basophil % 0.7 % Nucleated Red Blood Cells % 0.1 Comp Metabolic 12/13/2018 [facility] Sodium 136 mmol/L Normal 135-[address] [place] [address] [phone] Potassium 4.3 mmol/L Normal 3.5-5.0 Chloride 104 mmol/L Normal 101-111 Co2 Carbon Dioxide 25 mmol/L Normal 22-32 Anion Gap 7 mmol/L Normal 2-11 Calcium 9.0 mg/dL Normal 8.6-10.3 Albumin 3.5 g/dL Normal 3.2-5.2 Total Bilirubin 0.30 mg/dL Normal 0.2-1.0 Glucose 100 mg/dL Normal 70-100 Blood Urea Nitrogen 13 mg/dL Normal 6-24 Creatinine 0.76 mg/dL Normal 0.67-1.17 BUN/Creatinine Ratio 17.1 Normal 8-20 Total Protein 5.6 g/dL Low 6.4-8.9 Globulin 2.1 g/dL Normal 2-4 Albumin/Globulin Ratio 1.7 Normal 1-3 Alkaline Phosphatase 57 U/L Normal 34-104 Alt 10 U/L Normal 7-52 Ast 13 U/L Normal 13-39 Egfr Non- 106.1 >60 Egfr 128.4 >60 26 CBC Auto 12/13/2018 [facility] White Blood 4.1 10^3/uL Normal 3.5-10.[address] [place] [address] [phone] Red Blood Count 3.31 10^6/uL Low 4.18-5.48 Hemoglobin 10.0 g/dL Low 14.0-18.0 Hematocrit 30 % Low 42-52 Mean Corpuscular Volume 92 fL Normal 80-94 Mean Corpuscular Hemoglobin 30 pg Normal 27-31 Mean Corpuscular HGB Conc 33 g/dL Normal 31-36 Red Cell Distribution Width 19 % High 10-15 Platelet Count 350 10^3/uL Normal 150-450 Mean Platelet Volume 8.3 fL Normal 7.4-10.4 Abs Neutrophils 3.0 10^3/uL Normal 1.5-7.7 Abs Lymphocytes 0.4 10^3/uL Low 1.0-4.8 Abs Monocytes 0.6 10^3/uL Normal 0-0.8 Abs Eosinophils 0.1 10^3/uL Normal 0-0.6 Abs Basophils 0.0 10^3/uL Normal 0-0.2 Abs Nucleated RBC 0.0 10^3/uL Granulocyte % 72.3 % Lymphocyte % 10.8 % Monocyte % 14.4 % Eosinophil % 1.5 % Basophil % 1.0 % Nucleated Red Blood Cells % 0.0 Laboratory 12/13/2018 [facility] Carcinoembryonic 1.6 Normal 0.1-5.0 27 test finding [address] Antigen Cea ng/[place] [address] [phone] CBC Auto Diff 12/08/2018 [facility] White Blood Count 3.4 Low 3.5-10.[address] 10^3/[place] [address] [phone] Red Blood Count 2.87 10^6/uL Low 4.18-5.48 Hemoglobin 8.6 g/dL Low 14.0-18.0 Hematocrit 26 % Low 42-52 Mean Corpuscular Volume 92 fL Normal 80-94 Mean Corpuscular Hemoglobin 30 pg Normal 27-31 Mean Corpuscular HGB Conc 33 g/dL Normal 31-36 Red Cell Distribution Width 19 % High 10-15 Platelet Count 319 10^3/uL Normal 150-450 Mean Platelet Volume 7.3 fL Low 7.4-10.4 Abs Neutrophils 2.3 10^3/uL Normal 1.5-7.7 Abs Lymphocytes 0.6 10^3/uL Low 1.0-4.8 Abs Monocytes 0.4 10^3/uL Normal 0-0.8 Abs Eosinophils 0.1 10^3/uL Normal 0-0.6 Abs Basophils 0.0 10^3/uL Normal 0-0.2 Abs Nucleated RBC 0.0 10^3/uL Granulocyte % 66.1 % Lymphocyte % 18.5 % Monocyte % 10.3 % Eosinophil % 3.8 % Basophil % 1.3 % Nucleated Red Blood Cells % 0.0 CBC Auto 12/02/2018 [facility] White Blood 3.5 10^3/uL Normal 3.5-10.[address] [place] [address] [phone] Red Blood Count 2.95 10^6/uL Low 4.18-5.48 Hemoglobin 8.7 g/dL Low 14.0-18.0 Hematocrit 27 % Low 42-52 Mean Corpuscular Volume 92 fL Normal 80-94 Mean Corpuscular Hemoglobin 30 pg Normal 27-31 Mean Corpuscular HGB Conc 32 g/dL Normal 31-36 Red Cell Distribution Width 18 % High 10-15 Platelet Count 310 10^3/uL Normal 150-450 Mean Platelet Volume 7.3 fL Low 7.4-10.4 Abs Neutrophils 2.5 10^3/uL Normal 1.5-7.7 Abs Lymphocytes 0.8 10^3/uL Low 1.0-4.8 Abs Monocytes 0.2 10^3/uL Normal 0-0.8 Abs Eosinophils 0.1 10^3/uL Normal 0-0.6 Abs Basophils 0.0 10^3/uL Normal 0-0.2 Abs Nucleated RBC 0.0 10^3/uL Granulocyte % 70.1 % Lymphocyte % 22.8 % Monocyte % 4.9 % Eosinophil % 1.5 % Basophil % 0.7 % Nucleated Red Blood Cells % 0.0 CBC Auto 11/30/2018 [facility] White Blood 3.8 10^3/uL Normal 3.5-10.[address] [place] [address] [phone] Red Blood Count 3.10 10^6/uL Low 4.18-5.48 Hemoglobin 9.2 g/dL Low 14.0-18.0 Hematocrit 28 % Low 42-52 Mean Corpuscular Volume 90 fL Normal 80-94 Mean Corpuscular Hemoglobin 30 pg Normal 27-31 Mean Corpuscular HGB Conc 33 g/dL Normal 31-36 Red Cell Distribution Width 18 % High 10-15 Platelet Count 310 10^3/uL Normal 150-450 Mean Platelet Volume 7.2 fL Low 7.4-10.4 Abs Neutrophils 2.4 10^3/uL Normal 1.5-7.7 Abs Lymphocytes 0.6 10^3/uL Low 1.0-4.8 Abs Monocytes 0.5 10^3/uL Normal 0-0.8 Abs Eosinophils 0.2 10^3/uL Normal 0-0.6 Abs Basophils 0.0 10^3/uL Normal 0-0.2 Abs Nucleated RBC 0.0 10^3/uL Granulocyte % 64.6 % Lymphocyte % 15.3 % Monocyte % 14.3 % Eosinophil % 4.6 % Basophil % 1.2 % Nucleated Red Blood Cells % 0.1 Comp Metabolic 11/30/2018 [facility] Sodium 139 mmol/L Normal 135-[address] [place] [address] [phone] Potassium 3.8 mmol/L Normal 3.5-5.0 Chloride 107 mmol/L Normal 101-111 Co2 Carbon Dioxide 25 mmol/L Normal 22-32 Anion Gap 7 mmol/L Normal 2-11 Glucose 97 mg/dL Normal 70-100 Blood Urea Nitrogen 9 mg/dL Normal 6-24 Creatinine 0.64 mg/dL Low 0.67-1.17 BUN/Creatinine Ratio 14.1 Normal 8-20 Calcium 8.6 mg/dL Normal 8.6-10.3 Total Protein 5.7 g/dL Low 6.4-8.9 Albumin 3.2 g/dL Normal 3.2-5.2 Globulin 2.5 g/dL Normal 2-4 Albumin/Globulin Ratio 1.3 Normal 1-3 Total Bilirubin 0.30 mg/dL Normal 0.2-1.0 Alkaline Phosphatase 73 U/L Normal 34-104 Alt 11 U/L Normal 7-52 Ast 14 U/L Normal 13-39 Egfr Non- 129.4 >60 Egfr 156.5 >60 28 Laboratory 11/30/2018 [facility] Carcinoembryonic 1.3 Normal 0.1-5.0 29 test finding [address] Antigen Cea ng/[place] [address] [phone] CBC Auto Diff 11/28/2018 [facility] White Blood Count 3.4 Low 3.5-10.[address] 10^3/[place] [address] [phone] Red Blood Count 2.96 10^6/uL Low 4.18-5.48 Hemoglobin 8.8 g/dL Low 14.0-18.0 Hematocrit 27 % Low 42-52 Mean Corpuscular Volume 91 fL Normal 80-94 Mean Corpuscular Hemoglobin 30 pg Normal 27-31 Mean Corpuscular HGB Conc 32 g/dL Normal 31-36 Red Cell Distribution Width 18 % High 10-15 Platelet Count 294 10^3/uL Normal 150-450 Mean Platelet Volume 7.5 fL Normal 7.4-10.4 Abs Neutrophils 2.5 10^3/uL Normal 1.5-7.7 Abs Lymphocytes 0.4 10^3/uL Low 1.0-4.8 Abs Monocytes 0.4 10^3/uL Normal 0-0.8 Abs Eosinophils 0.1 10^3/uL Normal 0-0.6 Abs Basophils 0.0 10^3/uL Normal 0-0.2 Abs Nucleated RBC 0.0 10^3/uL Granulocyte % 74.1 % Lymphocyte % 11.5 % Monocyte % 11.0 % Eosinophil % 2.9 % Basophil % 0.5 % Nucleated Red Blood Cells % 0.1 CBC Auto 11/25/2018 [facility] White Blood 3.3 10^3/uL Low 3.5 -10.[address] [place] [address] [phone] Red Blood Count 2.87 10^6/uL Low 4.18-5.48 Hemoglobin 8.8 g/dL Low 14.0-18.0 Hematocrit 26 % Low 42-52 Mean Corpuscular Volume 92 fL Normal 80-94 Mean Corpuscular Hemoglobin 31 pg Normal 27-31 Mean Corpuscular HGB Conc 33 g/dL Normal 31-36 Red Cell Distribution Width 19 % High 10-15 Platelet Count 275 10^3/uL Normal 150-450 Mean Platelet Volume 7.6 fL Normal 7.4-10.4 Abs Neutrophils 2.3 10^3/uL Normal 1.5-7.7 Abs Lymphocytes 0.6 10^3/uL Low 1.0-4.8 Abs Monocytes 0.3 10^3/uL Normal 0-0.8 Abs Eosinophils 0.1 10^3/uL Normal 0-0.6 Abs Basophils 0.0 10^3/uL Normal 0-0.2 Abs Nucleated RBC 0.0 10^3/uL Granulocyte % 70.0 % Lymphocyte % 17.9 % Monocyte % 9.2 % Eosinophil % 2.5 % Basophil % 0.4 % Nucleated Red Blood Cells % 0.1 CBC Auto 11/24/2018 [facility] White Blood 4.0 10^3/uL Normal 3.5-10.[address] [place] [address] [phone] Red Blood Count 2.43 10^6/uL Low 4.18-5.48 Hemoglobin 7.4 g/dL Low 14.0-18.0 Hematocrit 23 % Low 42-52 Mean Corpuscular Volume 93 fL Normal 80-94 Mean Corpuscular Hemoglobin 31 pg Normal 27-31 Mean Corpuscular HGB Conc 33 g/dL Normal 31-36 Red Cell Distribution Width 19 % High 10-15 Platelet Count 275 10^3/uL Normal 150-450 Mean Platelet Volume 7.8 fL Normal 7.4-10.4 Abs Neutrophils 2.9 10^3/uL Normal 1.5-7.7 Abs Lymphocytes 0.6 10^3/uL Low 1.0-4.8 Abs Monocytes 0.3 10^3/uL Normal 0-0.8 Abs Eosinophils 0.1 10^3/uL Normal 0-0.6 Abs Basophils 0.0 10^3/uL Normal 0-0.2 Abs Nucleated RBC 0.0 10^3/uL Granulocyte % 72.9 % Lymphocyte % 16.2 % Monocyte % 7.4 % Eosinophil % 2.4 % Basophil % 1.1 % Nucleated Red Blood Cells % 0.1 Comp Metabolic 11/24/2018 [facility] Sodium 135 mmol/L Normal 135-[address] [place] [address] [phone] Potassium 3.7 mmol/L Normal 3.5-5.0 Chloride 104 mmol/L Normal 101-111 Co2 Carbon Dioxide 24 mmol/L Normal 22-32 Anion Gap 7 mmol/L Normal 2-11 Glucose 108 mg/dL High 70-100 Blood Urea Nitrogen 9 mg/dL Normal 6-24 Creatinine 0.72 mg/dL Normal 0.67-1.17 BUN/Creatinine Ratio 12.5 Normal 8-20 Calcium 8.8 mg/dL Normal 8.6-10.3 Total Protein 6.1 g/dL Low 6.4-8.9 Albumin 3.3 g/dL Normal 3.2-5.2 Globulin 2.8 g/dL Normal 2-4 Albumin/Globulin Ratio 1.2 Normal 1-3 Total Bilirubin 0.30 mg/dL Normal 0.2-1.0 Alkaline Phosphatase 68 U/L Normal 34-104 Alt 10 U/L Normal 7-52 Ast 11 U/L Low 13-39 Egfr Non- 112.9 >60 Egfr 136.6 >60 30 1 Because ethnic data is not always readily available, this report includes an eGFR for both -Americans and non- Americans. The National Kidney Disease Education Program (NKDEP) does not endorse the use of the MDRD equation for patients that are not between the ages of 18 and 70, are , have extremes of body size, muscle mass, or nutritional status, or are non- or non-. According to the National Kidney Foundation, irrespective of diagnosis, the stage of the disease is based on the level of kidney function: Stage Description GFR(mL/min/1.73 m(2)) 1 Kidney damage with normal or decreased GFR 90 2 Kidney damage with mild decrease in GFR 60-89 3 Moderate decrease in GFR 30-59 4 Severe decrease in GFR 15-29 5 Kidney failure <15 (or dialysis) 2 PORT 3 SEE RESULT BELOW Name: URBANO WEAVER : [address]: Dafne Troncoso MD Acct: [id number] Unit: [id number] AGE: 59 Location: [facility] Re05/19/19 SEX: M Status: REG REF SPEC: [id number] DIMITRY: 05/19/[address] [facility] [address]: Dafne Troncoso MD REQ: [id number] RECD: 05/19/19 STATUS: ENRIQUE RAMAN DR: Consuelo Corey MD _ SOURCE: BLOOD,LINE SPDESC: ORDERED: Blood Cult COMMENTS: PORT Procedure Result Reported Site Aerobic Culture Bottle Final 05/24/19- 1517 ML No Growth Day 5 Anaerobic Culture Bottle Final 05/24/19- 1517 ML No Growth Day 5 * ML - Main Lab . END OF REPORT DEPARTMENT OF PATHOLOGY, [address] [place] [address] Miguel Rodriguez M.D. Director [facility] # [id number] 4 PIV SITE 5 SEE RESULT BELOW Name: URBANO WEAVER : [address]: Dafne Troncoso MD Acct: [id number] Unit: [id number] AGE: 59 Location: [facility] Re05/19/19 SEX: M Status: REG REF SPEC: [id number] DIMITRY: 05/19/19-[address] [facility] [address]: Dafne Troncoso MD REQ: [id number] RECD: 05/19/19-1516 STATUS: ENRIQUE RAMAN DR: Consuelo Corey MD _ SOURCE: BLOOD,LINE SPDESC: ORDERED: Blood Cult COMMENTS: PIV SITE Procedure Result Reported Site Aerobic Culture Bottle Final 05/24/19- 1517 ML No Growth Day 5 Anaerobic Culture Bottle Final 05/24/19- 1517 ML No Growth Day 5 * ML - Main Lab . END OF REPORT DEPARTMENT OF PATHOLOGY, [address] [place] [address] Miguel Rodriguez M.D. Director [facility] # [id number] 6 Because ethnic data is not always readily available, this report includes an eGFR for both -Americans and non- Americans. The National Kidney Disease Education Program (NKDEP) does not endorse the use of the MDRD equation for patients that are not between the ages of 18 and 70, are , have extremes of body size, muscle mass, or nutritional status, or are non- or non-. According to the National Kidney Foundation, irrespective of diagnosis, the stage of the disease is based on the level of kidney function: Stage Description GFR(mL/min/1.73 m(2)) 1 Kidney damage with normal or decreased GFR 90 2 Kidney damage with mild decrease in GFR 60-89 3 Moderate decrease in GFR 30-59 4 Severe decrease in GFR 15-29 5 Kidney failure <15 (or dialysis) 7 Because ethnic data is not always readily available, this report includes an eGFR for both -Americans and non- Americans. The National Kidney Disease Education Program (NKDEP) does not endorse the use of the MDRD equation for patients that are not between the ages of 18 and 70, are , have extremes of body size, muscle mass, or nutritional status, or are non- or non-. According to the National Kidney Foundation, irrespective of diagnosis, the stage of the disease is based on the level of kidney function: Stage Description GFR(mL/min/1.73 m(2)) 1 Kidney damage with normal or decreased GFR 90 2 Kidney damage with mild decrease in GFR 60-89 3 Moderate decrease in GFR 30-59 4 Severe decrease in GFR 15-29 5 Kidney failure <15 (or dialysis) 8 SEE RESULTS BELOW [id number] [facility] 05/16/19 1121 9 Because ethnic data is not always readily available, this report includes an eGFR for both -Americans and non- Americans. The National Kidney Disease Education Program (NKDEP) does not endorse the use of the MDRD equation for patients that are not between the ages of 18 and 70, are , have extremes of body size, muscle mass, or nutritional status, or are non- or non-. According to the National Kidney Foundation, irrespective of diagnosis, the stage of the disease is based on the level of kidney function: Stage Description GFR(mL/min/1.73 m(2)) 1 Kidney damage with normal or decreased GFR 90 2 Kidney damage with mild decrease in GFR 60-89 3 Moderate decrease in GFR 30-59 4 Severe decrease in GFR 15-29 5 Kidney failure <15 (or dialysis) 10 Because ethnic data is not always readily available, this report includes an eGFR for both -Americans and non- Americans. The National Kidney Disease Education Program (NKDEP) does not endorse the use of the MDRD equation for patients that are not between the ages of 18 and 70, are , have extremes of body size, muscle mass, or nutritional status, or are non- or non-. According to the National Kidney Foundation, irrespective of diagnosis, the stage of the disease is based on the level of kidney function: Stage Description GFR(mL/min/1.73 m(2)) 1 Kidney damage with normal or decreased GFR 90 2 Kidney damage with mild decrease in GFR 60-89 3 Moderate decrease in GFR 30-59 4 Severe decrease in GFR 15-29 5 Kidney failure <15 (or dialysis) 11 Because ethnic data is not always readily available, this report includes an eGFR for both -Americans and non- Americans. The National Kidney Disease Education Program (NKDEP) does not endorse the use of the MDRD equation for patients that are not between the ages of 18 and 70, are , have extremes of body size, muscle mass, or nutritional status, or are non- or non-. According to the National Kidney Foundation, irrespective of diagnosis, the stage of the disease is based on the level of kidney function: Stage Description GFR(mL/min/1.73 m(2)) 1 Kidney damage with normal or decreased GFR 90 2 Kidney damage with mild decrease in GFR 60-89 3 Moderate decrease in GFR 30-59 4 Severe decrease in GFR 15-29 5 Kidney failure <15 (or dialysis) 12 Because ethnic data is not always readily available, this report includes an eGFR for both -Americans and non- Americans. The National Kidney Disease Education Program (NKDEP) does not endorse the use of the MDRD equation for patients that are not between the ages of 18 and 70, are , have extremes of body size, muscle mass, or nutritional status, or are non- or non-. According to the National Kidney Foundation, irrespective of diagnosis, the stage of the disease is based on the level of kidney function: Stage Description GFR(mL/min/1.73 m(2)) 1 Kidney damage with normal or decreased GFR 90 2 Kidney damage with mild decrease in GFR 60-89 3 Moderate decrease in GFR 30-59 4 Severe decrease in GFR 15-29 5 Kidney failure <15 (or dialysis) 13 Because ethnic data is not always readily available, this report includes an eGFR for both -Americans and non- Americans. The National Kidney Disease Education Program (NKDEP) does not endorse the use of the MDRD equation for patients that are not between the ages of 18 and 70, are , have extremes of body size, muscle mass, or nutritional status, or are non- or non-. According to the National Kidney Foundation, irrespective of diagnosis, the stage of the disease is based on the level of kidney function: Stage Description GFR(mL/min/1.73 m(2)) 1 Kidney damage with normal or decreased GFR 90 2 Kidney damage with mild decrease in GFR 60-89 3 Moderate decrease in GFR 30-59 4 Severe decrease in GFR 15-29 5 Kidney failure <15 (or dialysis) 14 Nonsmokers: < 2.9 ng/mL Some smokers may have elevated CEA, usually <5.0 ng/mL. Serum markers are not specific for malignancy, and values may vary by method. The testing method is an immunoenzymatic assay protection officer by [employer] performed on [employer] DXI 600. Do not interpret serum CEA levels as absolute evidence of the presence or the absence of malignant disease. Use serum CEA in conjunction with information from the clinical evaluation of the patient and other diagnostic procedures. 15 Because ethnic data is not always readily available, this report includes an eGFR for both -Americans and non- Americans. The National Kidney Disease Education Program (NKDEP) does not endorse the use of the MDRD equation for patients that are not between the ages of 18 and 70, are , have extremes of body size, muscle mass, or nutritional status, or are non- or non-. According to the National Kidney Foundation, irrespective of diagnosis, the stage of the disease is based on the level of kidney function: Stage Description GFR(mL/min/1.73 m(2)) 1 Kidney damage with normal or decreased GFR 90 2 Kidney damage with mild decrease in GFR 60-89 3 Moderate decrease in GFR 30-59 4 Severe decrease in GFR 15-29 5 Kidney failure <15 (or dialysis) 16 Nonsmokers: < 2.9 ng/mL Some smokers may have elevated CEA, usually <5.0 ng/mL. Serum markers are not specific for malignancy, and values may vary by method. The testing method is an immunoenzymatic assay protection officer by [employer] performed on [employer] DXI 600. Do not interpret serum CEA levels as absolute evidence of the presence or the absence of malignant disease. Use serum CEA in conjunction with information from the clinical evaluation of the patient and other diagnostic procedures. 17 Because ethnic data is not always readily available, this report includes an eGFR for both -Americans and non- Americans. The National Kidney Disease Education Program (NKDEP) does not endorse the use of the MDRD equation for patients that are not between the ages of 18 and 70, are , have extremes of body size, muscle mass, or nutritional status, or are non- or non-. According to the National Kidney Foundation, irrespective of diagnosis, the stage of the disease is based on the level of kidney function: Stage Description GFR(mL/min/1.73 m(2)) 1 Kidney damage with normal or decreased GFR 90 2 Kidney damage with mild decrease in GFR 60-89 3 Moderate decrease in GFR 30-59 4 Severe decrease in GFR 15-29 5 Kidney failure <15 (or dialysis) 18 Because ethnic data is not always readily available, this report includes an eGFR for both -Americans and non- Americans. The National Kidney Disease Education Program (NKDEP) does not endorse the use of the MDRD equation for patients that are not between the ages of 18 and 70, are , have extremes of body size, muscle mass, or nutritional status, or are non- or non-. According to the National Kidney Foundation, irrespective of diagnosis, the stage of the disease is based on the level of kidney function: Stage Description GFR(mL/min/1.73 m(2)) 1 Kidney damage with normal or decreased GFR 90 2 Kidney damage with mild decrease in GFR 60-89 3 Moderate decrease in GFR 30-59 4 Severe decrease in GFR 15-29 5 Kidney failure <15 (or dialysis) 19 [id number] 20 Nonsmokers: < 2.9 ng/mL Some smokers may have elevated CEA, usually <5.0 ng/mL. Serum markers are not specific for malignancy, and values may vary by method. The testing method is an immunoenzymatic assay protection officer by [employer] performed on [employer] DXI 600. Do not interpret serum CEA levels as absolute evidence of the presence or the absence of malignant disease. Use serum CEA in conjunction with information from the clinical evaluation of the patient and other diagnostic procedures. 21 Because ethnic data is not always readily available, this report includes an eGFR for both -Americans and non- Americans. The National Kidney Disease Education Program (NKDEP) does not endorse the use of the MDRD equation for patients that are not between the ages of 18 and 70, are , have extremes of body size, muscle mass, or nutritional status, or are non- or non-. According to the National Kidney Foundation, irrespective of diagnosis, the stage of the disease is based on the level of kidney function: Stage Description GFR(mL/min/1.73 m(2)) 1 Kidney damage with normal or decreased GFR 90 2 Kidney damage with mild decrease in GFR 60-89 3 Moderate decrease in GFR 30-59 4 Severe decrease in GFR 15-29 5 Kidney failure <15 (or dialysis) 22 Nonsmokers: < 2.9 ng/mL Some smokers may have elevated CEA, usually <5.0 ng/mL. Serum markers are not specific for malignancy, and values may vary by method. The testing method is an immunoenzymatic assay protection officer by [employer] performed on K[employer] Ge[employer]er DXI 600. Do not interpret serum CEA levels as absolute evidence of the presence or the absence of malignant disease. Use serum CEA in conjunction with information from the clinical evaluation of the patient and other diagnostic procedures. 23 Nonsmokers: < 2.9 ng/mL Some smokers may have elevated CEA, usually <5.0 ng/mL. Serum markers are not specific for malignancy, and values may vary by method. The testing method is an immunoenzymatic assay protection officer by [employer] performed on K[employer] Jase DXI 600. Do not interpret serum CEA levels as absolute evidence of the presence or the absence of malignant disease. Use serum CEA in conjunction with information from the clinical evaluation of the patient and other diagnostic procedures. 24 Because ethnic data is not always readily available, this report includes an eGFR for both -Americans and non- Americans. The National Kidney Disease Education Program (NKDEP) does not endorse the use of the MDRD equation for patients that are not between the ages of 18 and 70, are , have extremes of body size, muscle mass, or nutritional status, or are non- or non-. According to the National Kidney Foundation, irrespective of diagnosis, the stage of the disease is based on the level of kidney function: Stage Description GFR(mL/min/1.73 m(2)) 1 Kidney damage with normal or decreased GFR 90 2 Kidney damage with mild decrease in GFR 60-89 3 Moderate decrease in GFR 30-59 4 Severe decrease in GFR 15-29 5 Kidney failure <15 (or dialysis) 25 [id number] 26 Because ethnic data is not always readily available, this report includes an eGFR for both -Americans and non- Americans. The National Kidney Disease Education Program (NKDEP) does not endorse the use of the MDRD equation for patients that are not between the ages of 18 and 70, are , have extremes of body size, muscle mass, or nutritional status, or are non- or non-. According to the National Kidney Foundation, irrespective of diagnosis, the stage of the disease is based on the level of kidney function: Stage Description GFR(mL/min/1.73 m(2)) 1 Kidney damage with normal or decreased GFR 90 2 Kidney damage with mild decrease in GFR 60-89 3 Moderate decrease in GFR 30-59 4 Severe decrease in GFR 15-29 5 Kidney failure <15 (or dialysis) 27 Nonsmokers: < 2.9 ng/mL Some smokers may have elevated CEA, usually <5.0 ng/mL. Serum markers are not specific for malignancy, and values may vary by method. The testing method is an immunoenzymatic assay protection officer by [employer] performed on [employer] DXI 600. Do not interpret serum CEA levels as absolute evidence of the presence or the absence of malignant disease. Use serum CEA in conjunction with information from the clinical evaluation of the patient and other diagnostic procedures. 28 Because ethnic data is not always readily available, this report includes an eGFR for both -Americans and non- Americans. The National Kidney Disease Education Program (NKDEP) does not endorse the use of the MDRD equation for patients that are not between the ages of 18 and 70, are , have extremes of body size, muscle mass, or nutritional status, or are non- or non-. According to the National Kidney Foundation, irrespective of diagnosis, the stage of the disease is based on the level of kidney function: Stage Description GFR(mL/min/1.73 m(2)) 1 Kidney damage with normal or decreased GFR 90 2 Kidney damage with mild decrease in GFR 60-89 3 Moderate decrease in GFR 30-59 4 Severe decrease in GFR 15-29 5 Kidney failure <15 (or dialysis) 29 Nonsmokers: < 2.9 ng/mL Some smokers may have elevated CEA, usually <5.0 ng/mL. Serum markers are not specific for malignancy, and values may vary by method. The testing method is an immunoenzymatic assay protection officer by [employer] performed on K[employer] Geyser DXI 600. Do not interpret serum CEA levels as absolute evidence of the presence or the absence of malignant disease. Use serum CEA in conjunction with information from the clinical evaluation of the patient and other diagnostic procedures. 30 Because ethnic data is not always readily available, this report includes an eGFR for both -Americans and non- Americans. The National Kidney Disease Education Program (NKDEP) does not endorse the use of the MDRD equation for patients that are not between the ages of 18 and 70, are , have extremes of body size, muscle mass, or nutritional status, or are non- or non-. According to the National Kidney Foundation, irrespective of diagnosis, the stage of the disease is based on the level of kidney function: Stage Description GFR(mL/min/1.73 m(2)) 1 Kidney damage with normal or decreased GFR 90 2 Kidney damage with mild decrease in GFR 60-89 3 Moderate decrease in GFR 30-59 4 Severe decrease in GFR 15-29 5 Kidney failure <15 (or dialysis) Procedures Description No Information Available Medical Devices Description No Information Available Encounters Description No Information Available Assessments Description No Information Available Plan of Treatment Future Appointment(s):06/05/2019 9:00 am - Traveling ECHO 2 at [facility]07/15/2018 - Wilton Jaocb M.D.C17.0 Malignant neoplasm of duodenumFollow up:OR Functional Status Description No Information Available Mental Status Description No Information Available Referrals Description No Information Available
[2019-05-31 16:24] LABS: Troponin I 0.05 ng/mL (<0.03)
[2019-05-31 16:29] LABS: ALT 29 U/L (7-52); AST 31 U/L (13-39); Albumin 2.3 g/dL (3.2-5.2); Albumin/Globulin Ratio 0.8 (1-3); Alkaline Phosphatase 854 U/L (34-104); Anion Gap 6 mmol/L (2-11); BUN/Creatinine Ratio 34.2 (8-20); Blood Urea Nitrogen 13 mg/dL (6-24); C Reactive Protein 102.62 mg/L (<8.01); CO2 Carbon Dioxide 24 mmol/L (22-32); Calcium 8.1 mg/dL (8.6-10.3); Chloride 101 mmol/L (101-111); Creatine Kinase 125 U/L (10-223); EGFR African American 284.7 (>60); EGFR Non-African American 235.2 (>60); Globulin 2.8 g/dL (2-4); Glucose 95 mg/dL (70-100); Potassium 4.1 mmol/L (3.5-5.0); Sodium 131 mmol/L (135-145); Total Protein 5.1 g/dL (6.4-8.9)
[2019-05-31] MEDS ORDERED: diPHENhydraMINE IV* 50 MG/ML 1 ml VIAL (BENADRYL) IV ONE (17:08)
--- NOTE | 2019-05-31 19:10 | ED ---
Progress - Progress Note Progress Note: Patient is a sign-out at 19:00 on 05/31/[address] Manohar Merlos MD to Dr. Vianney Elliott MD at shift change, pending imaging results, further workup, and disposition. At 21:17, I discussed the patients case with Dr. Luis Armando Sood. At 19:44, I updated the patients family regarding imaging results. At 21:49, Dr. Mariel Iyer reviewed the patients case and agrees to [place] [facility] [place] diagnosis of anemia, generalized weakness, and elevated troponin. Patient will be admitted [place] [facility] [place] a diagnosis of anemia, generalized weakness , and elevated troponin. - Results/Orders Results/Orders: Abdomen/Pelvis CT IMPRESSION: 1. Continued enlargement of large upper abdominal mass involving duodenum and jejunum with increasing dilatation of 2nd portion of duodenum suggesting duodenal partial obstruction. 2. Numerous pulmonary metastases with largest, partially visualized in right lower lobe, increased in size. 3. Increased mesenteric stranding adjacent to the upper abdominal mass, also surrounding the superior mesenteric artery and vein. SMA/SMV involvement or thrombosis cannot be excluded without IV contrast. 4. Small pericardial effusion. 5. Continued biliary and pancreatic duct dilatation, likely secondary to above described mass but assessment is limited by lack of IV contrast. 6. Post gastric bypass and cholecystectomy. 7. 3 mm nonobstructing right renal calculus. No hydronephrosis. 8. 1 cm sclerotic density in the L5 vertebral body. Bony metastasis not excluded. 9. Other nonemergent findings as above. Reviewed by Dr. Elliott. Re-Evaluation - Re-Evaluation First Eval Re-Evaluation Time: 19:44 Change: Unchanged Comment: At 19:44, I updated the patients family regarding imaging results. Course/Dx - Course Course Of Treatment: Patient is a sign-out at 19:00 on 05/31/[address] Manohar Merlos MD to Dr. Vianney Elliott MD at shift change, pending imaging results, further workup, and disposition. Abdomen/Pelvis CT IMPRESSION: 1. Continued enlargement of large upper abdominal mass involving duodenum and jejunum with increasing dilatation of 2nd portion of duodenum suggesting duodenal partial obstruction. 2. Numerous pulmonary metastases with largest, partially visualized in right lower lobe, increased in size. 3. Increased mesenteric stranding adjacent to the upper abdominal mass, also surrounding the superior mesenteric artery and vein. SMA/SMV involvement or thrombosis cannot be excluded without IV contrast. 4. Small pericardial effusion. 5. Continued biliary and pancreatic duct dilatation, likely secondary to above described mass but assessment is limited by lack of IV contrast. 6. Post gastric bypass and cholecystectomy. 7. 3 mm nonobstructing right renal calculus. No hydronephrosis. 8. 1 cm sclerotic density in the L5 vertebral body. Bony metastasis not excluded. 9. Other nonemergent findings as above. At 21:17, I discussed the patients case with Dr. Luis Armando Sood. At 19:44, I updated the patients family regarding imaging results. At 21:49, Dr. Mariel Iyer reviewed the patients case and agrees to admit the patient [place] [facility] [place] a diagnosis of anemia, generalized weakness, and elevated troponin. Patient will be admitted to [facility] [place] a diagnosis of anemia, generalized weakness, and elevated troponin. - Diagnoses Provider Diagnoses: Elevated troponin, Gastric outlet obstruction, Anemia, Generalized weakness - Provider Notifications Discussed Care Of Patient With: Luis Armando Sood - At 21:17, I discussed the patients case with Dr. Sood. At 21:49, Dr. Mariel Iyer reviewed the patients case and agrees to admit the patient to [facility] [place] a diagnosis of anemia , generalized weakness, and elevated troponin. Time Discussed With Above Provider: 21:17 Instructed by Provider To: Admit As Inpatient - Dr. Dean oncology recommends ordering CT Abd/Pel Discharge ED - Sign-Out/Discharge Documenting (check all that apply): Patient Departure - Admit, Receiving Sign- Out Receiving patient FROM: Manohar Merlos - Patient is a sign-out at 19:[address] Manohar Merlos MD to Dr. Vianney Elliott MD at shift change, pending imaging results, further workup, and disposition. - Discharge Plan Condition: Stable Disposition: ADMITTED TO [facility] Referrals: Consuelo Grossman MD [Primary Care Provider] - - Billing Disposition and Condition Condition: STABLE Disposition: Admitted to [facility] - Attestation Statements Document Initiated by Scribe: Yes Documenting Scribe: Zenia Montoya Provider For Whom Scribe is Documenting (Include Credential): Vianney Rascon MD Scribe Attestation: I, Zenia Montoya, scribed for Vianney Elliott MD on 06/01/19 at 0131. Scribe Documentation Reviewed: Yes Provider Attestation: The documentation as recorded by the scribe, Zenia Montoya accurately reflects the service I personally performed and the decisions made by me, Vianney Elliott MD Status of Scribe Document: Viewed
[2019-06-01 00:31] LABS: Troponin I 0.04 ng/mL (<0.03)
[2019-06-01 03:01] LABS: Hematocrit 22 % (42-52); Hemoglobin 7.2 g/dL (14.0-18.0)
[2019-06-01 03:22] LABS: Troponin I 0.04 ng/mL (<0.03)
[2019-06-01] MEDS ORDERED: Docusate CAP* 100 MG PO PRN (03:31)
[2019-06-01 08:40] LABS: Hematocrit 25 % (42-52); Hemoglobin 8.4 g/dL (14.0-18.0); Mean Corpuscular HGB Conc 34 g/dL (31-36); Mean Corpuscular Hemoglobin 31 pg (27-31); Mean Corpuscular Volume 91 fL (80-94); Mean Platelet Volume 7.7 fL (7.4-10.4); Platelet Count 262 10^3/uL (150-450); Red Blood Count 2.75 10^6 /uL (4.18-5.48); Red Cell Distribution Width 18 % (10-15); White Blood Count 8.5 10^3/uL (3.5-10.8)
[2019-06-01 08:53] LABS: BUN/Creatinine Ratio 27.8 (8-20); Calcium 7.7 mg/dL (8.6-10.3); EGFR Non-African American 250.4 (>60); Potassium 3.7 mmol/L (3.5-5.0)
--- NOTE | 2019-06-01 08:59 | HP ---
CC: Dr. Corey; Dr. Troncoso * HISTORY AND PHYSICAL: DATE OF ADMISSION: 06/01/19 PRIMARY CARE PROVIDER: Dr. Corey. ONCOLOGIST: Dr. Troncoso. CHIEF COMPLAINT: Weakness. HISTORY OF PRESENT ILLNESS: Mr. Hawk is a 59-year-old male who has a history of metastatic adenocarcinoma of the duodenum, who presents to the emergency room with complaints of progressive weakness. The patient states that since he stopped his chemotherapy for his metastatic adenocarcinoma, he has developed progressive weakness. Over the last 3 days, he states that it has been very profound. He states that he has not been able to get up the stairs. Typically on a good day, he is able to do some picking up and manage his dog. Lately, he has just been giving the dog an injection that it needs on a daily basis and feeding it. He has not really been able to do much else. He denies any dizziness. He feels dehydrated. He states that he moved his bowels on a daily basis. Sometimes, he has issues with what takes him by mouth and will have diarrhea. The patient states that he is due to go to [facility] next week for followup to try to determine a plan on how to proceed with his cancer. He has been having issues where he has been requiring transfusions recently. His last transfusion was on 05/23/19. He states that he typically does feel improved after he receives the transfusion. PAST MEDICAL HISTORY: 1. Metastatic adenocarcinoma of the duodenum. 2. Hypertension. 3. Hyperlipidemia. 4. Chronic blood loss anemia. 5. Gout. PAST SURGICAL HISTORY: 1. Port placement. 2. Right total knee arthroplasty. 3. Gastric bypass. 4. Cholecystectomy. 5. Hernia repair. MEDICATIONS: 1. Fenofibrate 145 mg p.o. daily. 2. Ferrous sulfate 325 mg p.o. t.i.d. 3. Vitamin C 500 mg p.o. daily. 4. Lulu-3 fatty acid 1000 mg p.o. daily. 5. Multivitamin 1 tab p.o. daily. 6. Colace 100 mg p.o. daily p.r.n. constipation. 7. Vitamin B12 1000 mcg SL daily. 8. Vitamin D3 1000 units p.o. daily. 9. Pindolol 20 mg p.o. daily. 10. Omeprazole 20 mg p.o. b.i.d. 11. Allopurinol 300 mg p.o. daily. ALLERGIES: ASPIRIN, BEES, CAFFEINE, STATINS, IODINATED CONTRAST MEDIA, CODEINE , and PENICILLIN. FAMILY HISTORY: Mom at the age of 65 from breast cancer. Dad at the age of 85. He had prostate cancer. SOCIAL HISTORY: The patient does not smoke. He does not drink alcohol. 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 He is . He has 2 children. He indicates that his son, Isidro, and daughter, Velma, would be his healthcare proxies. REVIEW OF SYSTEMS: A complete 11-system review of systems is obtained. Pertinent positives and negatives are as per HPI, and in addition, the patient does state that he has lost approximately 15 pounds in the last 3 weeks from poor appetite. He also notes that he does have some lower extremity swelling, most notably around the ankles and feet. This is new. He also will have intermittent abdominal discomfort. Otherwise, review of systems is negative. PHYSICAL EXAMINATION GENERAL: The patient is a well-developed, middle-aged male, who appears much older than his stated age, sitting up in bed, in no acute distress. VITAL SIGNS: Blood pressure 122/74, pulse 96, respirations 20, temp 98.4, O2 sat 96% on room air. HEENT: Pupils are equal. Extraocular muscles are intact. Oropharynx is clear and moist. PULMONARY: Lungs are clear to auscultation bilaterally. CARDIAC: Normal S1, S2. Heart rate is mildly tachycardic, but regular. There is trace edema of the bilateral lower extremities. ABDOMEN: Bowel sounds present. Abdomen is soft, nontender, nondistended. MUSCULOSKELETAL: There is no cyanosis or clubbing of the digits. The patient moves all 4 extremities symmetrically. NEURO: Cranial nerves II through XII are grossly intact. Sensation is intact to light touch throughout. Strength is 5/5 and symmetric in both upper and lower extremities bilaterally. PSYCH: The patient is alert. He is oriented x3. Affect appears appropriate. SKIN: Visible areas of skin are warm, dry, and without rash. DIAGNOSTIC STUDIES/LAB DATA: Labs: WBC 7.7, hemoglobin 8.2, hematocrit 23, platelets 303. Sodium 131, potassium 4.1, chloride 101, CO2 of 24, BUN 13, creatinine 0.38, glucose 95, lactic acid 0.7, calcium 8.1, magnesium 2.0. Bilirubin 1.5, AST 31, ALT 29, alk phos 854. Ammonia 47. CPK 125. Troponin 0.05. CRP 102.62. BNP 108. Albumin 2.3. Lipase 117. Abdominal x-ray: Partial gastric outlet obstruction. Chest x-ray: No evidence for active cardiopulmonary disease. Abdomen and pelvis CT: There is continued enlargement of large upper abdominal mass involving duodenum and jejunum with increasing dilation of second portion of the duodenum suggesting partial duodenal obstruction. There are numerous pulmonary metastases with the largest partially visualized in the right lower lobe which has increased in size. There is increased mesenteric stranding adjacent to the upper abdominal mass. There is also stranding around the superior mesenteric artery and vein. SMA/SMV involvement or thrombosis cannot be excluded without IV contrast. There is continued biliary and pancreatic duct dilatation likely secondary to above described mass. The patient is status post gastric bypass and cholecystectomy. There is a 3 mm nonobstructing right renal calculus. There is no hydronephrosis. There is a 1 cm sclerotic density in the L5 vertebral body, bony metastasis is not excluded. ASSESSMENT AND PLAN: Mr. Hawk is a 59-year-old male with a history of metastatic adenocarcinoma of the duodenum, who presents to the emergency room with complaints of weakness. 1. Weakness. This is likely multifactorial. The patient does not sound taking much nutrition throughout the day. He states that he will typically eat some fruit and a protein shake and maybe some fruit again later in the day. He does drink milk. I suspect nutritional deficiencies may be contributing some; however, the patient also has worsened anemia today compared to 05/19/19, when his hemoglobin was 10. At this point, we will recheck H and H at 02:30 and transfuse if his H and H is dropped, which I suspect is low as the patient is going to be receiving normal saline. I do not believe that there are any focal neurologic issues at this time. 2. Elevated troponin. The patient has a mildly elevated troponin of 0.05. His subsequent troponin is 0.04 and will have one further at 02:30. I suspect the elevated troponin is secondary to demand ischemia. The patient has had no chest pain whatsoever. No workup for this will be done at this time. 3. Hypertension. Blood pressure is under good control. He will continue on pindolol. 4. Gout. Continue allopurinol. 5. Gastroesophageal reflux disease. Continue PPI. 6. Hyperlipidemia. I am holding the patient's TriCor. 7. DVT prophylaxis. According to the Adult Thrombosis Prophylaxis Risk Factor Assessment Guide, the patient has a total risk factor score of 5 making him the highest risk given his chronic slow bleed. SCDs and ambulation will be utilized as DVT prophylaxis. 8. Code status is full. TIME SPENT: Sixty-five minutes was spent admitting this patient. [id number]/CPS #: [id number] MTDD
--- NOTE | 2019-06-01 09:39 | PN ---
Progress Note - Progress Note Date of Service: 06/01/19 SOAP: Subjective: feels a little better with the blood transfusion. progressive weakness but profound over last 3 days and did not feel able to care for himself at home or safe to drive to hospital. going to [facility] next week and hopeful that they will offer him a treatment that will make him feel strongly. Objective: Vital Signs Temp Pulse Resp BP Pulse Ox 98.5 F 86 16 144/74 98 06/01/19 08:12 06/01/19 08:12 06/01/19 08:12 06/01/19 08:12 06/01/19 08:12 perr eomi op dry cta bl s1 s2 nl soft ttp over midepigastrium trace LE edema A+O x 3, nonfocal neurological exam Laboratory Results - last 24 hr 05/31/19 05/31/19 05/31/19 15:37 15:37 15:37 WBC 7.7 RBC 2.59 L Hgb 8.2 L Hct 23 L MCV 90 MCH 32 H MCHC 35 RDW 19 H Plt Count 303 MPV 7.1 L Neut % (Auto) 75.0 Lymph % (Auto) 14.8 [place] % (Auto) 8.8 Eos % (Auto) 0.2 Baso % (Auto) 1.2 Absolute Neuts (auto) 5.8 Absolute Lymphs (auto) 1.1 Absolute Monos (auto) 0.7 Absolute Eos (auto) 0.0 Absolute Basos (auto) 0.1 Absolute Nucleated RBC 0.0 Nucleated RBC % 0.0 Sodium 131 L Potassium 4.1 Chloride 101 Carbon Dioxide 24 Anion Gap 6 BUN 13 Creatinine 0.38 L Est GFR ( Amer) 284.7 Est GFR (Non-Af Amer) 235.2 BUN/Creatinine Ratio 34.2 H Glucose 95 Lactic Acid 0.7 Calcium 8.1 L Magnesium 2.0 Total Bilirubin 1.50 H AST 31 ALT 29 Alkaline Phosphatase 854 H Ammonia Total Creatine Kinase 125 Troponin I 0.05 H* C-Reactive Protein 102.62 H B-Natriuretic Peptide Total Protein 5.1 L Albumin 2.3 L Globulin 2.8 Albumin/Globulin Ratio 0.8 L Lipase 117 H Blood Type Antibody Screen Crossmatch 05/31/19 05/31/19 05/31/19 15:37 15:37 23:59 WBC RBC Hgb Hct MCV MCH MCHC RDW Plt Count MPV Neut % (Auto) Lymph % (Auto) [place] % (Auto) Eos % (Auto) Baso % (Auto) Absolute Neuts (auto) Absolute Lymphs (auto) Absolute Monos (auto) Absolute Eos (auto) Absolute Basos (auto) Absolute Nucleated RBC Nucleated RBC % Sodium Potassium Chloride Carbon Dioxide Anion Gap BUN Creatinine Est GFR ( Amer) Est GFR (Non-Af Amer) BUN/Creatinine Ratio Glucose Lactic Acid Calcium Magnesium Total Bilirubin AST ALT Alkaline Phosphatase Ammonia 47 Total Creatine Kinase Troponin I 0.04 H* C-Reactive Protein B-Natriuretic Peptide 108 H Total Protein Albumin Globulin Albumin/Globulin Ratio Lipase Blood Type B Positive Antibody Screen Negative Crossmatch See Detail 06/01/19 06/01/19 06/01/19 02:49 02:49 08:08 WBC 8.5 RBC 2.75 L Hgb 7.2 L 8.4 L Hct 22 L 25 L MCV 91 MCH 31 MCHC 34 RDW 18 H Plt Count 262 MPV 7.7 Neut % (Auto) Lymph % (Auto) [place] % (Auto) Eos % (Auto) Baso % (Auto) Absolute Neuts (auto) Absolute Lymphs (auto) Absolute Monos (auto) Absolute Eos (auto) Absolute Basos (auto) Absolute Nucleated RBC Nucleated RBC % Sodium Potassium Chloride Carbon Dioxide Anion Gap BUN Creatinine Est GFR ( Amer) Est GFR (Non-Af Amer) BUN/Creatinine Ratio Glucose Lactic Acid Calcium Magnesium Total Bilirubin AST ALT Alkaline Phosphatase Ammonia Total Creatine Kinase Troponin I 0.04 H* C-Reactive Protein B-Natriuretic Peptide Total Protein Albumin Globulin Albumin/Globulin Ratio Lipase Blood Type Antibody Screen Crossmatch 06/01/19 08:08 WBC RBC Hgb Hct MCV MCH MCHC RDW Plt Count MPV Neut % (Auto) Lymph % (Auto) [place] % (Auto) Eos % (Auto) Baso % (Auto) Absolute Neuts (auto) Absolute Lymphs (auto) Absolute Monos (auto) Absolute Eos (auto) Absolute Basos (auto) Absolute Nucleated RBC Nucleated RBC % Sodium 132 L Potassium 3.7 Chloride 103 Carbon Dioxide 23 Anion Gap 6 BUN 10 Creatinine 0.36 L Est GFR ( Amer) 303.0 Est GFR (Non-Af Amer) 250.4 BUN/Creatinine Ratio 27.8 H Glucose 70 Lactic Acid Calcium 7.7 L Magnesium Total Bilirubin AST ALT Alkaline Phosphatase Ammonia Total Creatine Kinase Troponin I C-Reactive Protein B-Natriuretic Peptide Total Protein Albumin Globulin Albumin/Globulin Ratio Lipase Blood Type Antibody Screen Crossmatch Allopurinol (Zyloprim Tab*) 300 mg PO QAM BRIAN Ascorbic Acid (Vitamin C Tab*) 500 mg PO TID BRIAN Cholecalciferol (Vitamin D Tab*) 1,000 units PO QAM BRIAN Docusate Sodium (Colace Cap*) 100 mg PO DAILY PRN PRN Reason: CONSTIPATION Ferrous Sulfate (Ferrous Sulfate Tab*) 325 mg PO TID BRIAN Sodium Chloride (Ns 0.9% 1000 Ml) 1,000 mls @ 100 mls/hr IV PER RATE BRIAN Multivitamins/Minerals (Theragran/Minerals Tab*) 1 tab PO QAM BRIAN Pantoprazole Sodium (Protonix Tab*) 40 mg PO BID BRIAN Pindolol (Pindolol(Nf)) 20 mg PO DAILY BRIAN Assessment: 59 yo M w progressive duodenal cancer off of therapy awaiting possible clinical trial with progressive weakness and anemia related to bleeding duodenal tumor. I had a very katie conversation with Isidro today that I am concerned that with his deteriorating performance status that he may not be a candidate for clinical trial. I am not sure that he can continue to care for himself at this level of weakness. He would like to try getting one more unit of blood and a physical therapy assessment, which is not unreasonable. He is hopeful that if he can get on a trial drug that improves his cancer he will gain strength. I have expressed that I am not sure this is likely but he holds out hope. Plan: GI bleed: blood loss related to tumor transfuse 1 u prbc iron tid with vitamin C deconditioning: PT consult no DVT chemical DVT prophylaxis 2/2 bleed full code
[2019-06-01] MEDS: Ferrous Sulfate TAB* 325 MG PO SCH ×3 (10:58→20:51)
[2019-06-01] MEDS: PINDOLOL 10 MG PO SCH (10:58)
[2019-06-01] MEDS: Allopurinol TAB* 300 MG PO SCH (10:58)
[2019-06-01] MEDS: Cholecalciferol TAB* 1000 UNITS PO SCH (10:58)
[2019-06-01] MEDS: Ascorbic Acid TAB* 500 MG PO SCH ×4 (10:58→20:51)
[2019-06-01] MEDS: Pantoprazole TAB * 40 MG TAB PO SCH ×2 (10:58→20:51)
[2019-06-01] MEDS: Multivitamins/Minerals TAB PO SCH (10:58)
[2019-06-01 16:11] LABS: Urine Appearance Clear; Urine Bilirubin Negative (Negative); Urine Blood Negative (Negative); Urine Color Amber; Urine Glucose Negative (Negative); Urine Ketones Negative (Negative); Urine Nitrite Negative (Negative); Urine Protein Negative (Negative); Urine Urobilinogen Positive (Negative)
[2019-06-01] MEDS ORDERED: Acetaminophen TAB* 325 MG PO PRN (20:33)
[2019-06-01] MEDS: NS 0.9% 1000 ML** 1,000 ML IV SCH (20:52)
[2019-06-01] MEDS ORDERED: Enoxaparin(*) 40 MG/0.4 ML SYR SUBCUT SCH (21:00)
[2019-06-02 05:35] LABS: ABS Basophils 0.1 10^3/ul (0-0.2); ABS Lymphocytes 0.5 10^3/ul (1.0-4.8); ABS Monocytes 0.6 10^3/ul (0-0.8); ABS Neutrophils 8.2 10^3/ul (1.5-7.7); Eosinophil % 0.1 %; Hematocrit 26 % (42-52); Hemoglobin 8.9 g/dL (14.0-18.0); Lymphocyte % 5.8 %; Mean Corpuscular HGB Conc 34 g/dL (31-36); Mean Corpuscular Hemoglobin 30 pg (27-31); Mean Corpuscular Volume 88 fL (80-94); Mean Platelet Volume 7.1 fL (7.4-10.4); Platelet Count 250 10^3/uL (150-450); Red Blood Count 2.94 10^6 /uL (4.18-5.48); Red Cell Distribution Width 17 % (10-15); White Blood Count 9.5 10^3/uL (3.5-10.8)
[2019-06-02 05:50] LABS: Albumin 1.9 g/dL (3.2-5.2); Calcium 7.4 mg/dL (8.6-10.3); Potassium 3.3 mmol/L (3.5-5.0); Total Bilirubin 2.5 mg/dL (0.2-1.0)
[2019-06-02 05:55] LABS: Albumin/Globulin Ratio 0.8 (1-3); BUN/Creatinine Ratio 23.5 (8-20); EGFR African American 323.6 (>60); EGFR Non-African American 267.5 (>60); Globulin 2.3 g/dL (2-4); Total Protein 4.2 g/dL (6.4-8.9)
[2019-06-02] MEDS: NS 0.9% 1000 ML** 1,000 ML IV SCH (07:01)
[2019-06-02] MEDS: Pantoprazole TAB * 40 MG TAB PO SCH (08:02)
[2019-06-02] MEDS: Ferrous Sulfate TAB* 325 MG PO SCH (08:02)
[2019-06-02] MEDS: Ascorbic Acid TAB* 500 MG PO SCH (08:02)
[2019-06-02] MEDS: Multivitamins/Minerals TAB PO SCH (08:02)
[2019-06-02] MEDS: Cholecalciferol TAB* 1000 UNITS PO SCH (08:02)
[2019-06-02] MEDS: PINDOLOL 10 MG PO SCH (08:03)
[2019-06-02] MEDS: Allopurinol TAB* 300 MG PO SCH (08:03)
[2019-06-02] MEDS ORDERED: Potassium Chlor TAB* 20 MEQ TAB.ER PO ONE (09:31)
[2019-06-02 09:34] LABS: Magnesium 1.8 mg/dL (1.9-2.7)
--- NOTE | 2019-06-02 12:24 | DS ---
CC: Dr. Consuelo Corey; Dr. Troncoso * DISCHARGE SUMMARY: DATE OF ADMISSION: 06/01/19 DATE OF DISCHARGE: 06/02/19 PRIMARY CARE PROVIDER: Dr. Consuelo Corey. PRIMARY ONCOLOGIST AND ATTENDING PHYSICIAN: Dr. Dafne Troncoso * (DICTATED BY POLINA DANIELLE) DISCHARGING PROVIDER: POLINA Danielle PRIMARY DISCHARGE DIAGNOSES: 1. Acute on chronic anemia secondary to gastrointestinal blood loss from bleeding duodenal tumor. 2. Metastatic duodenal adenocarcinoma. DISCHARGE MEDICATIONS: 1. Allopurinol 300 mg p.o. daily. 2. Ascorbic Acid 500 mg p.o. daily. 3. Vitamin D3 1000 units p.o. daily. 4. Vitamin B12 1000 mcg sublingual daily. 5. Fenofibrate 145 mg p.o. daily. 6. Ferrous sulfate 325 mg p.o. 3 times daily. 7. Multivitamin 1 capsule p.o. daily. 8. Fish oil 1 capsule p.o. daily. 9. Omeprazole 20 mg p.o. twice daily. 10. Pindolol 20 mg p.o. daily. 11. Docusate 100 mg p.o. daily. HOSPITAL IMAGIN. Abdominal x-ray 05/31/19 shows partial gastric outlet obstruction. 2. Chest x-ray 05/31/19, no evidence for disease. 3. CT abdomen and pelvis 05/31/19 shows continued enlargement of large upper abdominal mass involving the duodenum and jejunum with increasing dilation of the secondary portion of the duodenum suggesting partial obstruction. Evidence of numerous pulmonary metastases. Increased mesenteric stranding adjacent to the upper abdominal mass surrounding the superior mesenteric artery and vein. Small pericardial effusion. Continued biliary and pancreatic ductal dilatation likely secondary to duodenal mass. Post gastric bypass and cholecystectomy and a stable sclerotic density at L5. 4. Chest x-ray 06/01/19 shows no acute disease. HOSPITAL COURSE: This is a 59-year-old gentleman with metastatic duodenal adenocarcinoma under the care of Dr. Dafne Troncoso who unfortunately recently progressed on additional line of chemotherapy with plans to pursue clinical trial at [place], who presented to the emergency department with complaints of weakness. Initial labs showed slightly worsening anemia with a hemoglobin of 8.2. Chemistry showed some mild hyponatremia with a sodium of 131, total bilirubin of 1.5, alk phos of 854, CRP of 102, and elevated troponin at 0.05. The patient was recommended admission to the hospital for further cardiac evaluation, initially received 1 unit of packed red blood cells. Repeat hemoglobin several hours following admission dropped to 1 g from 8.2 to 7.2 following IV hydration. One unit of packed red blood cells improved his hemoglobin from 7.2 to 8.4 and he received additional unit improving his hemoglobin further to 8.9 at the time of discharge. The patient noted that his strength improved following blood transfusion and denied any abdominal pain or other increasing GI symptoms. Despite his poor prognosis and impaired performance status, the patient remains motivated to continue to pursue clinical trial and has a pending appointment at [facility] for 06/05/19. The patient is stable for discharge. DISPOSITION AND FOLLOWUP PLANING: The patient is being discharged from the hospital in stable condition to home. He will be seen at [facility] for consideration of clinical trial on Wednesday. Recommended Oncology office visit on for labs, and possible repeat transfusion and an office visit with Dr. Troncoso the following day, 06/09/19. The patient will continue his usual home medications including iron with vitamin C supplementation. The patient will call with any worsening symptoms. POLINA DANIELLE [id number]/[facility] #: [id number] PATY
[2019-06-02 14:00] VITALS: BP 107/65
--- NOTE | 2019-06-02 19:07 | UC ---
- Progress Note Progress Note: received Positive blood culture report from the lab Gram - bacilli in port Dr. Dean notified--Dr. Dean will call patient at home to make further arrangement for care Course/Dx - Diagnoses Provider Diagnoses: Elevated troponin, Gastric outlet obstruction, Anemia, Generalized weakness - Provider Notifications Time Discussed With Above Provider: 21:17 Instructed by Provider To: Admit As Inpatient - Dr. Dean oncology recommends ordering CT Abd/Pel Discharge ED - Sign-Out/Discharge Documenting (check all that apply): Post-Discharge Follow Up - Discharge Plan Condition: Stable Disposition: ADMITTED TO [facility] - Billing Disposition and Condition Condition: STABLE Disposition: Admitted to [facility]
== END 2019-06-02 13:00 | disposition home health service (06) | DRG 240 ==
LOC: ED 15:16 → MED 06-01 03:27
PROVIDERS: ADMIT Hospitalist; ATTEND Internal Medicine Hematology & Oncology
PROC: 30233N1 Transfusion of Nonautologous Red Blood Cells into Peripheral Vein, Percutaneous Approach (ICD-10-PCS; principal; 2019-06-01)
DX: C17.0 Malignant neoplasm of duodenum (principal); D62 Acute posthemorrhagic anemia; E87.1 Hypo-osmolality and hyponatremia; C79.9 Secondary malignant neoplasm of unspecified site; I25.10 Atherosclerotic heart disease of native coronary artery without angina pectoris; I10 Essential (primary) hypertension; G47.30 Sleep apnea, unspecified; K21.9 Gastro-esophageal reflux disease without esophagitis; M17.12 Unilateral primary osteoarthritis, left knee; D63.0 Anemia in neoplastic disease; Z96.651 Presence of right artificial knee joint; Z88.5 Allergy status to narcotic agent; Z88.0 Allergy status to penicillin; Z88.8 Allergy status to other drugs, medicaments and biological substances; Z88.6 Allergy status to analgesic agent; Z91.041 Radiographic dye allergy status; Z87.11 Personal history of peptic ulcer disease; Z87.891 Personal history of nicotine dependence; Z85.118 Personal history of other malignant neoplasm of bronchus and lung
CPT/HCPCS: 36415; 71045; 71046; 74019; 74176; 80048; 80053; 81003; 82140; 82550; 83605; 83690; 83735; 83880; 84484; 85014; 85018; 85025; 85027; 86140; 86850; 86900; 86901; 86922; 87040; 87077; 87186; 87205; 96374; 99233; 99239; 99284; A9270-GY; J1200; J1642; P9040

== ENCOUNTER 2019-06-02 20:59 | Inpatient (IN) | payer BC ==
[2019-06-02] MEDS ORDERED: cefTRIAXone(*) 2 GM in NS 0.9% 100 ML* 100 ML IVPB ONE (21:10)
[2019-06-02] MEDS ORDERED: NS 0.9% 1000 ML** 2,000 ML IV ONE (21:11)
--- NOTE | 2019-06-02 21:34 | ED ---
Complex/Multi-Sys Presentation - HPI Summary HPI Summary: Patient is a 59 y/o M w/ Hx of anemia and metastatic duodenal adenocarcinoma who presents to [facility] for positive blood cultures taken from his chest port. He had recently been evaluated at [facility] for anemia and received two units of blood. Patient notes that he is experienced generalized weakness and also reports that he has been experiencing lower back pain. He believes that a kidney stone is causing his back pain as his back pain feels similar to his previous episodes of kidney stones. Patient notes that he had a fever yesterday but this is since resolved. Minimal cough noted. Pt does not report any fever, chills, erythema of eyes, sore throat, CP, SOB, abdominal pain, N/V, dysuria, hematuria, edema, rash, or dizziness. On triage, pain is rated 10/10 in severity. 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 Home medications and allergies are reviewed. - History Of Current Complaint Time Seen by Provider: 06/02/19 21:09 Hx Obtained From: Patient Onset/Duration: Still Present Timing: Constant Severity Currently: Severe Location: Pain At: - lower back Aggravating Factor(s): nothing Alleviating Factor(s): nothing Associated Signs And Symptoms: Positive: Cough, Back Pain, Fever - since resolved, Other - does not report any fever, chills, erythema of eyes, sore throat, CP, SOB, abdominal pain, N/V, dysuria, hematuria, edema, rash, or dizziness. Negative: Dizziness, SOB, Chest Pain, Edema, Nausea, Vomiting, Abdominal Pain, Dysuria - Allergies/Home Medications Allergies/Adverse Reactions: Allergies Allergy/AdvReac Type Severity Reaction Status Date / Time aspirin Allergy Severe Anaphylatic Verified 05/16/19 15:33 [From Excedrin Migraine] Shock bee venom protein (honey bee) Allergy Severe Hives Verified 05/16/19 15:33 caffeine Allergy Severe Anaphylatic Verified 05/16/19 15:33 [From Excedrin Migraine] Shock [id number] Reductase Allergy Severe Unknown Verified 05/16/19 15:33 Inhibitor Reaction Details Iodinated Contrast Media Allergy Intermediate Tachycardia Verified 05/16/19 15: 33 [Iodinated Contrast- Oral and IV Dye] codeine Allergy Mild Rash Verified 05/16/19 15:33 Penicillins Allergy Mild Rash Verified 05/16/19 15:33 PMH/Surg Hx/FS Hx/Imm Hx Endocrine/Hematology History: Reports: Hx Anticoagulant Therapy, Hx Anemia - ON FERROUS SULFATE TID Denies: Hx Bone Marrow Disease, Hx Diabetes, Hx Systemic Lupus Erythematosus , Hx Sickle Cell Disease, Hx Thyroid Disease, Other Endocrine/Hematological Disorders Cardiovascular History: Reports: Hx Coronary Artery Disease - CATH IN 1999 STATED 90% BLOCKED ARTERY- RECENT STRESS TEST PT STATED NO PRO, Hx Hypertension , Other Cardiovascular Problems/Disorders - CAD, PALPITATIONS, CARDIAC CATH, ANEMIA, LOW HEMOGLOBIN, PEPTIC ULCER Denies: Hx Congestive Heart Failure, Hx Pacemaker/ICD Respiratory History: Reports: Hx Pulmonary Embolism - PE FOLLOWING TKR 2013, Hx Sleep Apnea - HX OF- BUT NOT CURRENTLY, Other Respiratory Problems/Disorders - chronic bronchitis,BLOOD CLOTS IN LUNGS Denies: Hx Asthma, Hx Chronic Obstructive Pulmonary Disease (COPD) GI History: Reports: Hx Gall Bladder Disease - removal jan 2012, Hx Gastroesophageal Reflux Disease - ON OCCASION, Hx Ulcer - HX OF PEPTIC ULCER , Other GI Disorders - multiple abd sx.; rouen-y 2002 History: Reports: Hx Kidney Stones - SURGERY 02/12/12, Other Problems/ Disorders - prior kidney stones w ESWL. Denies: Hx Dialysis, Hx Renal Disease Musculoskeletal History: Reports: Hx Arthritis - KNEES, NECK, AND BACK, Other Musculoskeletal History - knee surgery Denies: Hx Rheumatoid Arthritis Sensory History: Reports: Hx Contacts or Glasses Denies: Hx Cataracts, Hx Glaucoma, Hx Hearing Aid, Other Sensory Impairments Opthamlomology History: Reports: Hx Contacts or Glasses Denies: Hx Cataracts, Hx Glaucoma, Other Sensory Impairments Neurological History: Denies: Hx Dementia, Hx Seizures, Other Neuro Impairments/Disorders Psychiatric History: Denies: Hx Panic Disorder, Hx Substance Abuse, Other Psychiatric Issues/ Disorders - Cancer History Cancer Type, Location and Year: lung, intestinal Hx Chemotherapy: No - Surgical History Surgery Procedure, Year, and Place: Cholecystectomy 2016, KIDNEY STONE STENT REMOVED AFTER STONE PASSED, hernia repair 2013, rouen-y gastric bypass 2002, RT KNEE X2(TOTAL REPLACEMENT NOW 10/2013), CARDIAC CATH. power port placement Hx Anesthesia Reactions: No - Immunization History Date of Tetanus Vaccine: utd Date of Influenza Vaccine: utd Infectious Disease History: Denies: Hx Clostridium Difficile, Hx Hepatitis, Hx Human Immunodeficiency Virus (HIV), Hx of Known/Suspected MRSA, Hx Shingles, Hx Tuberculosis, Hx Known/ Suspected VRE, Hx Known/Suspected VRSA, History Other Infectious Disease - Family History Known Family History: Negative: Cardiac Disease - Social History Alcohol Use: None Substance Use Type: Reports: None Hx Tobacco Use: Yes Smoking Status (MU): Former Smoker Type: Cigars Amount Used/How Often: 2 CIGARS/week 20 YRS Length of Time of Smoking/Using Tobacco: 20 YRS Have You Smoked in the Last Year: Yes Review of Systems Constitutional: Other - positive blood cultures Positive: Fever - since resolved . Negative: Chills Negative: Erythema Negative: Sore Throat Negative: Chest Pain Positive: Cough. Negative: Shortness Of Breath Negative: Abdominal Pain, Vomiting, Nausea Negative: dysuria, hematuria Positive: Myalgia - lower back pain . Negative: Edema Negative: Rash Neurological: Other - negative - dizziness All Other Systems Reviewed And Are Negative: Yes Physical Exam - Summary Physical Exam Summary: Constitutional: Well-developed, Well-nourished, Alert. (-) Distressed Skin: Warm, Dry HENT: Normocephalic; Atraumatic Eyes: Conjunctiva normal Neck: Musculoskeletal ROM normal neck. (-) JVD, (-) Stridor, (-) Tracheal deviation Cardio: Rhythm regular, rate normal, Heart sounds normal; Intact distal pulses; The pedal pulses are 2+ and symmetric. Radial pulses are 2+ and symmetric. (-) Murmur Pulmonary/Chest wall: Effort normal. (-) Respiratory distress, (-) Wheezes, (-) Rales Abd: Soft, (-) tenderness, (-) Distension, (-) Guarding, (-) Rebound Musculoskeletal: (-) Edema Lymph: (-) Cervical adenopathy Neuro: Alert, Oriented x3 Psych: Mood and affect Normal Triage Information Reviewed: Yes Vital Signs Reviewed: Yes Procedures - Sedation Patient Received Moderate/Deep Sedation with Procedure: No Diagnostics - Laboratory Lab Statement: Any lab studies that have been ordered have been reviewed, and results considered in the medical decision making process. - Radiology CXR Radiology Interpretation Completed By: ED Physician Summary of Radiographic Findings: CXR showed NAD, pending official report. - CT CT ABD/PEL CT Interpretation Completed By: Radiologist Summary of CT Findings: IMPRESSION: 1. Stable small to moderate pericardial effusion. 2. Stable bibasilar indeterminate pulmonary nodules. 3. Stable punctate nonobstructive right nephrolithiasis. 4. Stable mass lesion involving the duodenum and proximal jejunum with stable. fat stranding in this region, cannot exclude malignancy. THIS REPORT WAS REVIEWED BY ED PHYSICIAN. - EKG 2213 Cardiac Rate: NL - rate of 90 BPM EKG Rhythm: Sinus Rhythm Summary of EKG Findings: EKG showed NSR with rate of 90 BPM, no STEMI. ED physician has reviewed and interpreted this EKG. Complex Multi-Symp Course/Dx Course Of Treatment: Patient is a 59 y/o M w/ Hx of anemia and metastatic duodenal adenocarcinoma who presents to [facility] via EMS for positive blood cultures taken from his chest port. He had recently been evaluated at [facility] for anemia and received two units of blood. Patient notes that he is experienced generalized weakness and also reports that he has been experiencing lower back pain. He believes that a kidney stone is causing his back pain as his back pain feels similar to his previous episodes of kidney stones. Patient notes that he had a fever yesterday but this is since resolved. Minimal cough noted. Physical exam is unremarkable. EKG showed NSR with rate of 90 BPM, no STEMI. CXR showed NAD. Bloodwork was obtained. Trop of 0.05 noted. Other abnormal values include RBC 3.26, Hgb 9.9, Hct 29, RDW 17, absolute neuts 9.5, absolute lymphs 0.4, INR 1.38, sodium 132, creatinine 0.46, calcium 8, total bilirubin 3.3, AST 76, alk phos 945, total protein 4.9, albumin 2.1, albumin/globulin ratio 0.8. During ED course, patient received fluids and ceftriaxone sodium 2 gm in sodium chloride 100 mls @ 200 mls/hr IVPB. CT ABD/PEL. IMPRESSION: 1. Stable small to moderate pericardial effusion. 2. Stable bibasilar indeterminate pulmonary nodules. 3. Stable punctate nonobstructive right nephrolithiasis. 4. Stable mass lesion involving the duodenum and proximal jejunum with stable. fat stranding in this region, cannot exclude malignancy. 2147 - Patient's case was discussed with Dr. Dean. He agrees with admission at [place] [address]/02 as the patient had developed a fever at the time. He notes that oral antibiotics can be considered and that if appropriate the patient can still make his [place] appointment. 2153 - Patient's case was discussed with Dr. García, CT abd/pel and urology consult to be obtained. 2211 - Dr. Shin was consulted, he will follow on the patient as needed. 2242 - Dr. García aware that Dr. Shin will follow patient as needed, Dr. García accepts for admission. - Diagnoses Provider Diagnoses: Bacteremia, Infection of venous access port, Flank pain - Physician Notifications Discussed Care Of Patient With: Rose García Time Discussed With Above Provider: 21:54 Instructed by Provider To: Other - 2153 - Patient's case was discussed with Dr. García, CT abd/pel and urology consult to be obtained. 2211 - Dr. Shin was consulted, he will follow on the patient as needed. 2242 - Dr. García aware that Dr. Shin will follow patient as needed, Dr. García accepts for admission. - Critical Care Time Critical Care Time: 30-74 min - 60 minutes CCT Discharge ED - Sign-Out/Discharge Documenting (check all that apply): Patient Departure - admit - Discharge Plan Condition: Stable Disposition: ADMITTED TO [facility] Referrals: Consuelo Grossman MD [Primary Care Provider] - - Attestation Statements Document Initiated by Scribe: Yes Documenting Scribe: RAYO AGUSTIN Provider For Whom Scribe is Documenting (Include Credential): SANDY WEBER MD Scribe Attestation: IRAYO, scribed for SANDY WEBER MD on 06/02/19 at 2350. Status of Scribe Document: Ready
[2019-06-02 21:43] LABS: ABS Basophils 0.1 10^3/ul (0-0.2); ABS Lymphocytes 0.4 10^3/ul (1.0-4.8); ABS Monocytes 0.6 10^3/ul (0-0.8); ABS Neutrophils 9.5 10^3/ul (1.5-7.7); Eosinophil % 0.3 %; Hematocrit 29 % (42-52); Hemoglobin 9.9 g/dL (14.0-18.0); Lymphocyte % 3.8 %; Mean Corpuscular HGB Conc 34 g/dL (31-36); Mean Corpuscular Hemoglobin 30 pg (27-31); Mean Corpuscular Volume 89 fL (80-94); Mean Platelet Volume 7.7 fL (7.4-10.4); Platelet Count 270 10^3/uL (150-450); Red Blood Count 3.26 10^6 /uL (4.18-5.48); Red Cell Distribution Width 17 % (10-15); White Blood Count 10.7 10^3/uL (3.5-10.8)
[2019-06-02 21:44] LABS: Activated Partial Thrombo Time 35.3 seconds (26.0-38.0); INR 1.38 (0.82-1.09)
[2019-06-02 21:54] LABS: ALT 48 U/L (7-52); AST 76 U/L (13-39); Albumin 2.1 g/dL (3.2-5.2); Albumin/Globulin Ratio 0.8 (1-3); Alkaline Phosphatase 945 U/L (34-104); Anion Gap 5 mmol/L (2-11); BUN/Creatinine Ratio 19.6 (8-20); Blood Urea Nitrogen 9 mg/dL (6-24); CO2 Carbon Dioxide 24 mmol/L (22-32); Chloride 103 mmol/L (101-111); EGFR African American 228.3 (>60); EGFR Non-African American 188.7 (>60); Globulin 2.8 g/dL (2-4); Glucose 92 mg/dL (70-100); Potassium 4.2 mmol/L (3.5-5.0); Sodium 132 mmol/L (135-145); Total Protein 4.9 g/dL (6.4-8.9)
[2019-06-02 21:57] LABS: Troponin I 0.05 ng/mL (<0.03)
[2019-06-02] MEDS ORDERED: Docusate CAP* 100 MG PO PRN (23:21)
[2019-06-03] MEDS: NS 0.9% 1000 ML** 1,000 ML IV SCH ×3 (01:45→23:59)
--- NOTE | 2019-06-03 05:31 | ADMNOTE ---
Subjective Interval History: this is my H/P Patient is a 59 y/o M with history of anemia and metastatic duodenal adenocarcinoma who presented to the ED for positive blood cultures taken from his chest port earlier. He was just in the hospital for blood transfusion for his anemia. Blood cultures were taken from his port and came back pos with Gram neg rods. His oncologist prompted him to come back to the hospital. Patient said he has been experiencing generalized weakness and he had a fever yesterday.He is also experiencing lower back pain. Because of his hx of kidney stones, he had a CT abdomen done which was benign. Other than the fatigue and fever, no new symptoms. He has a chronic cough. No skin infections, no abdominal pain, no dysuria. Family History: Unchanged from Admission Social History: Unchanged from Admission Past Medical History: Unchanged from Admission Review of Systems - Measurements Intake and Output: Intake and Output Last 24 Hours 05/31/19 06/01/19 06/02/19 06/03/19 06:59 06:59 06:59 06:59 Intake Total 2200 Balance 2200 Weight 203 lb Intake: IV Fluids 2199 - Review of Systems Constitutional Symptoms: Positive: Weakness, Fatigue, Fever Negative: Weight Gain, Weight Loss, Night Sweats, Unexplained Falls, Other Dermatology: Negative: Normal, Rash, Skin Lesions, Cancer, Skin Lumps, Other HEENT: Negative: Normal, Change in Hearing, Vertigo, Dental Problems, Tinnitus, Sinus Problem, Other Eyes: Negative: Normal, Change in Vision, Double Vision, Eye Pain, Glaucoma, Cataract, Contacts or Glasses, Other Thyroid: Negative: Normal, Goiter, Thyroid Nodule, Cold Intolerance, Heat Intolerance , Sweatiness, Tremor, Frequent Defecation, Constipation, Palpitations, Primary Hypothyroidism, Primary Hyperthyroidism, Weight Loss, Weight Gain, Change in Skin/Hair, Change in Menstruation, Radiation Exposure, Other Pulmonary: Positive: Cough Negative: Normal, Sputum, Hemoptysis, Wheezing, Respiratory Distress, Shortness of Breath, COPD, Asthma, Exercise Intolerance, Home Oxygen, Other Cardiology: Negative: Normal, Chest Pain, Shortness of Breath, Palpitations, Swelling of Ankles, Peripheral Vascular Dis, Edema, Faintness, Syncope, Claudication, Proximal NocturnalDyspnea, Orthopnoea, Other Gastroenterology: Negative: Normal, Abdominal Pain, Nausea, Vomiting, Anorexia, Indigestion, Difficulty Swallowing, Heartburn, Constipation, Diarrhea, Blood in Stools, Change in Bowel Habits, Haematemesis, Melena, Other Genital - Urinary: Negative: Normal, Dysuria, Hematuria, Polyuria, Nocturia, Other Musculoskeletal: Negative: Joint Pain, Joint Stiffness, Arthritis, Osteoporosis, Low Back Pain , Sciatica, Joint Deformities, Kyphoscoliosis, Other Endocrinology: Negative: Normal, Thyroid Problems, Adrenal Problems, Gonadal Problems, Family Hx Endocrine Disorders, Obesity, Diabetes Mellitus, Hyperglycemia, Hx Hypoglycemia, Diabetic Foot Ulcers, Calluses, Hirsutism, Menstrual Abnormalities , Polydipsia, Polyuria, Gonadal Problems, Gynecomastia, Pituitary disease, Other Hematologic/Lymphatic: Negative: Anemia, Easy Bruising, Hx Leukemia, Hx Lymphoma, Use of Anticoagulant, Use of Antiplatelet Drugs, Other Neurology: Negative: Normal, Headache, Migraines, Change in Vision, Diplopia, Dizziness , Change in Balancing, Change in Coordination, Change in Memory, Change in Speech, Change in Sphincter Function, Change in Walking, Numbness\Paresthesiae, Unexplained Weakness, Hx of Stroke\TIA, Hx of Seizures, Other Psychiatry: Negative: Normal, Depression, Anxiety, Depressed Mood, Anhedonia, Sexual Dysfunction, Weight Change, Guilt Feelings, Tearfulness, Unusual Fatigue, Unusual Anxiety, Suicidal Ideation, Hypomania, Eating Disorders, Other Objective Active Medications: Docusate Sodium (Colace Cap*) 100 mg PO DAILY PRN PRN Reason: CONSTIPATION Heparin Sodium (Porcine) (Heparin Vial(*)) 5,000 units SUBCUT Q8HR [facility] Ceftriaxone Sodium 1 gm/ (Sodium Chloride) 50 mls @ 100 mls/hr IVPB Q24H [facility] Pantoprazole Sodium (Protonix Tab*) 40 mg PO BID [facility] Ambulatory Orders Allopurinol TAB* [Zyloprim 300 MG TAB*] 300 mg PO QAM 10/04/12 Docusate CAP* [Colace Cap*] 100 mg PO DAILY PRN cap 04/03/18 Omeprazole CAP (NF) [Prilosec CAP* 20 MG] 20 mg PO BID 06/07/18 Fenofibrate(NF) [Tricor(NF)] 145 mg PO DAILY 05/31/19 Vital Signs - 8 hr 06/02/19 06/02/19 06/02/19 21:28 21:29 21:58 Temperature 99.8 F Pulse Rate 95 98 Respiratory 20 Rate Blood Pressure 118/73 118/73 123/87 (mmHg) O2 Sat by Pulse 85 99 Oximetry 06/02/19 06/02/19 06/02/19 22:14 22:24 22:28 Temperature Pulse Rate 90 92 88 Respiratory Rate Blood Pressure 114/75 (mmHg) O2 Sat by Pulse 100 100 100 Oximetry 06/02/19 06/02/19 06/02/19 22:58 23:00 23:28 Temperature Pulse Rate 90 93 87 Respiratory Rate Blood Pressure 116/72 114/72 (mmHg) O2 Sat by Pulse 100 100 100 Oximetry 06/02/19 06/03/19 06/03/19 23:58 00:00 00:28 Temperature Pulse Rate 90 91 88 Respiratory Rate Blood Pressure 114/73 109/71 (mmHg) O2 Sat by Pulse 100 100 100 Oximetry 06/03/19 06/03/19 00:30 01:30 Temperature 99.7 F 97.9 F Pulse Rate 88 90 Respiratory 14 16 Rate Blood Pressure 109/71 115/69 (mmHg) O2 Sat by Pulse 100 100 Oximetry Oxygen Devices in Use Now: Nasal Cannula Appearance: he is sad because his dog recently Eyes: No Scleral Icterus, PERRLA Ears/Nose/Mouth/Throat: Mucous Membranes Moist Neck: NL Appearance and Movements; NL JVP, Trachea Midline Respiratory: Symmetrical Chest Expansion and Respiratory Effort, Clear to Auscultation Cardiovascular: NL Sounds; No Murmurs; No JVD, No Edema Abdominal: NL Sounds; No Tenderness; No Distention Extremities: No Edema Skin: No Rash or Ulcers Neurological: Alert and Oriented x 3 Result Diagrams: 06/02/19 21:29 06/02/19 21:29 Assess/Plan/Problems-Billing Assessment: - Patient Problems (1) Bacteremia Current Visit: Yes Status: Acute Code(s): R78.81 - BACTEREMIA SNOMED Code( s): 1907423 Comment: gram neg rods bacteremia. Pt is immunocompromised with hx of intestinal cancer and has a port No abdominal symptoms right now. will cover with cefepime until microbiology comes out (2) Duodenal adenocarcinoma Current Visit: Yes Status: Acute Code(s): C17.0 - MALIGNANT NEOPLASM OF DUODENUM SNOMED Code(s): 989877122 Comment: follows with oncology outpatient (3) GERD (gastroesophageal reflux disease) Current Visit: Yes Status: Acute Code(s): K21.9 - GASTRO-ESOPHAGEAL REFLUX DISEASE WITHOUT ESOPHAGITIS SNOMED Code(s): 265584645 Comment: resume PPI (4) CAD (coronary artery disease) Current Visit: Yes Status: Acute Code(s): I25.10 - ATHSCL HEART DISEASE OF [place] CORONARY ARTERY W/O ANG PCTRS SNOMED Code(s): 66915616 Comment: cont fenofibrate Trend troponins No complaints of chest pain. Bump in troponins is likely just demand (5) Anemia Current Visit: No Status: Acute Code(s): D64.9 - ANEMIA, UNSPECIFIED SNOMED Code(s): 432842721 Comment: gets frequent transfusions (6) Full code status Current Visit: Yes Status: Acute Code(s): Z78.9 - OTHER SPECIFIED HEALTH STATUS SNOMED Code(s): 033758217 (7) DVT prophylaxis Current Visit: Yes Status: Acute Code(s): Z29.9 - ENCOUNTER FOR PROPHYLACTIC MEASURES, UNSPECIFIED SNOMED Code(s): 858471043 Comment: heparin scc
[2019-06-03] MEDS ORDERED: cefTRIAXone(*) 1 GM in NS 0.9% 50 ML* 50 ML IVPB SCH (06:00)
[2019-06-03] MEDS ORDERED: Cefepime ADVAN(*) 1 GM in NS 0.9% 50 ML* 50 ML IVPB SCH (06:00)
[2019-06-03] MEDS ORDERED: Cefepime 1 GM in Dextrose(*) 1 GM/50 ML BAG IV SCH (06:30)
[2019-06-03 06:56] LABS: BUN/Creatinine Ratio 25.8 (8-20); EGFR Non-African American 297.6 (>60); Potassium 3.4 mmol/L (3.5-5.0)
[2019-06-03 07:00] LABS: Troponin I 0.04 ng/mL (<0.03)
[2019-06-03] MEDS: Heparin VIAL(*) 5000 UNITS/ML VIAL (FIVE THOUSAND) SUBCUT SCH ×3 (07:31→21:28)
[2019-06-03] MEDS: Pantoprazole TAB * 40 MG TAB PO SCH ×2 (07:53→21:28)
[2019-06-03 08:02] LABS: Urine Appearance Clear; Urine Bilirubin 1+ (Negative); Urine Blood Negative (Negative); Urine Color Amber; Urine Glucose Negative (Negative); Urine Ketones Negative (Negative); Urine Nitrite Negative (Negative); Urine Protein Negative (Negative); Urine Specific Gravity 1.018 (1.010-1.030); Urine Urobilinogen Positive (Negative)
[2019-06-03 12:39] LABS: Hematocrit 25 % (42-52); Mean Corpuscular HGB Conc 33 g/dL (31-36); Mean Corpuscular Hemoglobin 30 pg (27-31); Mean Corpuscular Volume 91 fL (80-94); Mean Platelet Volume 7.9 fL (7.4-10.4); Platelet Count 227 10^3/uL (150-450); Red Blood Count 2.71 10^6 /uL (4.18-5.48); Red Cell Distribution Width 17 % (10-15); White Blood Count 7.4 10^3/uL (3.5-10.8)
[2019-06-03 13:03] LABS: Acanthocytes 2+
[2019-06-03 13:04] LABS: Polychromasia 1+
[2019-06-03 13:05] LABS: ABS Eosinophils 0.1 10^3/ul (0-0.6)
--- NOTE | 2019-06-03 17:10 | PN ---
Subjective Date of Service: 06/03/19 Interval History: Pt is feeling wiped out. He is concerned that some of his home meds were not ordered. He denies any dysuria. He had a soft stool earlier today. No diarrhea. Family History: Unchanged from Admission Social History: Unchanged from Admission Past Medical History: Unchanged from Admission Objective Active Medications: Docusate Sodium (Colace Cap*) 100 mg PO DAILY PRN PRN Reason: CONSTIPATION Heparin Sodium (Porcine) (Heparin Vial(*)) 5,000 units SUBCUT Q8HR [facility] Last Admin: 06/03/19 13:57 Dose: 5,000 units Cefepime HCl (Maxipime 1 Gm In Dextrose Duplex (*)) 1 gm in 50 mls @ 100 mls/ hr IV Q12H [facility] Last Admin: 06/03/19 07:31 Dose: 100 mls/hr Pantoprazole Sodium (Protonix Tab*) 40 mg PO BID [facility] Last Admin: 06/03/19 07:53 Dose: 40 mg Vital Signs - 8 hr 06/03/19 06/03/19 11:15 15:15 Temperature 98.6 F 98.4 F Pulse Rate 87 96 Respiratory 22 18 Rate Blood Pressure 113/67 126/76 (mmHg) O2 Sat by Pulse 99 100 Oximetry Oxygen Devices in Use Now: None Appearance: Middle aged male lying in bed, NAD Eyes: No Scleral Icterus Ears/Nose/Mouth/Throat: Mucous Membranes Moist Respiratory: Symmetrical Chest Expansion and Respiratory Effort, Clear to Auscultation Cardiovascular: NL Sounds; No Murmurs; No JVD, RRR, No Edema Abdominal: NL Sounds; No Tenderness; No Distention Extremities: No Clubbing, Cyanosis Skin: No Nodules or Sclerosis Neurological: Alert and Oriented x 3 Result Diagrams: 06/03/19 06:13 06/03/19 06:16 Microbiology and Other Data: Microbiology 06/02/19 21:29 Anaerobic Blood Culture - Preliminary Blood Venous Assess/Plan/Problems-Billing Mr Hawk is a 59 yo M who has metastatic adenocarcinoma of the duodenum who was hospitalized from 06/01/19-06/02/19 for weakness that was thought to be secondary to anemia but had a blood culture drawn AM 06/02/19, when he developed a fever, which returned positive on the evening 06/02/19 after he was discharged home and was called back to the hospital for readmission. - Patient Problems (1) Bacteremia Current Visit: Yes Status: Acute Code(s): R78.81 - BACTEREMIA SNOMED Code( s): 0613413 Comment: The patient has grown e coli from the culture obtained from his port on 06/02/19 in the AM. Gram negative bacilli growing from culture last night. I spoke with Dr. Lucas who recommended RUQ US given climbing bilirubin. His urine is clean. His port is likely infected. Will need continued work up for the bacteremia. (2) Duodenal adenocarcinoma Current Visit: Yes Status: Acute Code(s): C17.0 - MALIGNANT NEOPLASM OF DUODENUM SNOMED Code(s): 107612480 Comment: Pt has appointment at [place] this coming Wednesday. He would like to be discharged in time to go to the appointment. (3) CAD (coronary artery disease) Current Visit: Yes Status: Acute Code(s): I25.10 - ATHSCL HEART DISEASE OF [place] CORONARY ARTERY W/O ANG PCTRS SNOMED Code(s): 57526471 Comment: Troponin stable. Likely demand ischemia. No further work up. (4) Anemia Current Visit: Yes Status: Acute Code(s): D64.9 - ANEMIA, UNSPECIFIED SNOMED Code(s): 833242966 Comment: H/H back down to 12/25 from yesterday. Will not transfused at this time. (5) GERD (gastroesophageal reflux disease) Current Visit: Yes Status: Acute Code(s): K21.9 - GASTRO-ESOPHAGEAL REFLUX DISEASE WITHOUT ESOPHAGITIS SNOMED Code(s): 791901419 Comment: Continue omeprazole. (6) DVT prophylaxis Current Visit: Yes Status: Acute Code(s): Z29.9 - ENCOUNTER FOR PROPHYLACTIC MEASURES, UNSPECIFIED SNOMED Code(s): 098526522 Comment: heparin SQ (7) Full code status Current Visit: Yes Status: Acute Code(s): Z78.9 - OTHER SPECIFIED HEALTH STATUS SNOMED Code(s): 462349203
[2019-06-03] MEDS: Ferrous Sulfate TAB* 325 MG PO SCH (21:28)
[2019-06-03] MEDS: Simethicone TAB* 80 MG TAB.CHEW PO PRN (21:28)
[2019-06-03] MEDS: cefTRIAXone(*) 1 GM in NS 0.9% 50 ML* 50 ML IVPB SCH (21:29)
[2019-06-04] MEDS: Heparin VIAL(*) 5000 UNITS/ML VIAL (FIVE THOUSAND) SUBCUT SCH ×3 (05:30→22:56)
[2019-06-04 07:35] LABS: Hematocrit 24 % (42-52); Hemoglobin 8.3 g/dL (14.0-18.0); Mean Corpuscular HGB Conc 35 g/dL (31-36); Mean Corpuscular Hemoglobin 30 pg (27-31); Mean Corpuscular Volume 88 fL (80-94); Mean Platelet Volume 7.9 fL (7.4-10.4); Platelet Count 224 10^3/uL (150-450); Red Blood Count 2.71 10^6 /uL (4.18-5.48); Red Cell Distribution Width 18 % (10-15); White Blood Count 5.2 10^3/uL (3.5-10.8)
[2019-06-04 07:39] LABS: ALT 51 U/L (7-52); AST 87 U/L (13-39); Albumin 1.7 g/dL (3.2-5.2); Albumin/Globulin Ratio 0.7 (1-3); Alkaline Phosphatase 990 U/L (34-104); Anion Gap 4 mmol/L (2-11); Blood Urea Nitrogen 5 mg/dL (6-24); CO2 Carbon Dioxide 23 mmol/L (22-32); Calcium 7.5 mg/dL (8.6-10.3); Chloride 105 mmol/L (101-111); EGFR African American 373.9 (>60); Globulin 2.3 g/dL (2-4); Glucose 82 mg/dL (70-100); Potassium 3.1 mmol/L (3.5-5.0); Sodium 132 mmol/L (135-145)
[2019-06-04 08:07] LABS: ABS Eosinophils 0.1 10^3/ul (0-0.6)
[2019-06-04] MEDS: Cholecalciferol TAB* 1000 UNITS PO SCH (08:18)
[2019-06-04] MEDS: Pantoprazole TAB * 40 MG TAB PO SCH ×2 (08:18→22:55)
[2019-06-04] MEDS: Ferrous Sulfate TAB* 325 MG PO SCH ×3 (08:18→22:59)
[2019-06-04] MEDS: Multivitamins/Minerals TAB PO SCH (08:18)
[2019-06-04] MEDS: Allopurinol TAB* 300 MG PO SCH (08:18)
[2019-06-04] MEDS: Ascorbic Acid TAB* 500 MG PO SCH (08:19)
--- NOTE | 2019-06-04 09:49 | PN ---
Subjective Date of Service: 06/04/19 Interval History: Pt had low grade fever last night to 100.1. He is frustrated about the last week and being in and out of the hospital and now missing his appoitnment that took 6 weeks to get at [place]. Objective Active Medications: Allopurin[facility] ([facility]yloprim Tab*) [facility] Last Admin: 06/04/19 08:18 Dose: 300 mg Ascorbic Acid (Vitamin C Tab*) [facility] Last Admin: 06/04/19 08:19 Dose: 500 mg Cholecalciferol (Vitamin D Tab*) [facility] Last Admin: 06/04/19 08:18 Dose: 1,000 units Docusate Sodium (Colace Cap*) 100 mg PO DAILY PRN PRN Reason: CONSTIPATION Ferrous Sulfate (Ferrous Sulfate Tab*) 325 mg PO TID [facility] Last Admin: 06/04/19 08:18 Dose: 325 mg Heparin Sodium (Porcine) (Heparin Vial(*)) 5,000 units SUBCUT Q8HR [facility] Last Admin: 06/04/19 05:30 Dose: 5,000 units Ceftriaxone Sodium 1 gm/ (Sodium Chloride) 50 mls @ 100 mls/hr IVPB Q24H [facility] Last Admin: 06/03/19 21:29 Dose: 100 mls/hr Sodium Chloride (Ns 0.9% 1000 Ml) 1,000 mls @ 100 mls/hr IV PER RATE [facility] Last Admin: 06/03/19 23:59 Dose: 100 mls/hr Multivitamins/Minerals (Theragran/Minerals Tab*) 1 tab PO [facility] Last Admin: 06/04/19 08:18 Dose: 1 tab Pantoprazole Sodium (Protonix Tab*) 40 mg PO BID [facility] Last Admin: 06/04/19 08:18 Dose: 40 mg Pindolol (Pindolol(Nf)) 20 mg PO DAILY [facility] Simethicone (Mylicon Tab*) 80 mg PO Q6H PRN PRN Reason: gas Last Admin: 06/03/19 21:28 Dose: 80 mg Vital Signs - 8 hr 06/04/19 06/04/19 06/04/19 03:10 07:15 08:00 Temperature 98.4 F 98.2 F Pulse Rate 96 93 Respiratory 18 24 24 Rate Blood Pressure 117/65 118/71 (mmHg) O2 Sat by Pulse 98 100 100 Oximetry Oxygen Devices in Use Now: None Appearance: Middle aged male who appears chronically ill and older than his stated age, sitting up in bed, NAD Eyes: - - mild scleral icterus Respiratory: Symmetrical Chest Expansion and Respiratory Effort, Clear to Auscultation - anteriorly Cardiovascular: NL Sounds; No Murmurs; No JVD, RRR, - - trace LE edema Abdominal: NL Sounds; No Tenderness; No Distention Extremities: No Clubbing, Cyanosis Skin: No Nodules or Sclerosis, - - mild jaundice Neurological: Alert and Oriented x 3 Result Diagrams: 06/04/19 06:32 06/04/19 06:32 Microbiology and Other Data: Microbiology 06/02/19 21:29 Anaerobic Blood Culture - Preliminary Blood Venous Assess/Plan/Problems-Billing Mr Hawk is a 59 yo M who has metastatic adenocarcinoma of the duodenum who was hospitalized from 06/01/19-06/02/19 for weakness that was thought to be secondary to anemia but had a blood culture drawn AM 06/02/19, when he developed a fever, which returned positive on the evening 06/02/19 after he was discharged home and was called back to the hospital for readmission. - Patient Problems (1) Bacteremia Current Visit: Yes Status: Acute Code(s): R78.81 - BACTEREMIA SNOMED Code( s): 3207958 Comment: Will continue ceftriaxone for now. RUQ ultrasound ordered. I feel that it is safest for the patient to remain hospitalized while working up the source of his infection. He needs ID consult tomorrow. Unfortunately he is going to miss his appointment at [place]. Will ask that case management call [place] and alert them to him being hospitalized and request a new appointment. (2) Duodenal adenocarcinoma Current Visit: Yes Status: Acute Code(s): C17.0 - MALIGNANT NEOPLASM OF DUODENUM SNOMED Code(s): 902471764 Comment: Pt will need a new appointment as he will not make it to the appointment tomorrow. (3) Anemia Current Visit: Yes Status: Acute Code(s): D64.9 - ANEMIA, UNSPECIFIED SNOMED Code(s): 262982818 Comment: H/H stable today. Continue to follow. Transfuse for Hb<8. (4) CAD (coronary artery disease) Current Visit: Yes Status: Acute Code(s): I25.10 - ATHSCL HEART DISEASE OF [place] CORONARY ARTERY W/O ANG PCTRS SNOMED Code(s): 08123254 Comment: Troponin stable. Likely demand ischemia. No further work up. (5) GERD (gastroesophageal reflux disease) Current Visit: Yes Status: Acute Code(s): K21.9 - GASTRO-ESOPHAGEAL REFLUX DISEASE WITHOUT ESOPHAGITIS SNOMED Code(s): 931116922 Comment: Continue omeprazole. (6) DVT prophylaxis Current Visit: Yes Status: Acute Code(s): Z29.9 - ENCOUNTER FOR PROPHYLACTIC MEASURES, UNSPECIFIED SNOMED Code(s): 242629820 Comment: heparin SQ (7) Full code status Current Visit: Yes Status: Acute Code(s): Z78.9 - OTHER SPECIFIED HEALTH STATUS SNOMED Code(s): 272076880
[2019-06-04] MEDS: PINDOLOL 10 MG PO SCH (11:13)
[2019-06-04] MEDS: NS 0.9% 1000 ML** 1,000 ML IV SCH ×2 (13:06→22:50)
[2019-06-04] MEDS ORDERED: NS 0.9% 500 ML* 500 ML IV ONE (20:00)
[2019-06-04] MEDS ORDERED: Acetaminophen TAB* 325 MG PO ONE (20:02)
--- NOTE | 2019-06-04 20:05 | PN ---
Hospitalist Progress Note Date of Service: 06/04/19 Call for new fever 103 tach and resp rate 22, meeting sepsi criteria, will check labs, cbcb, bmp, blood cx, lactic, 500cc bolus tylenol times one on abx at this point, would continue for now, not hypotensive so holding 30cc.kg bolus ,
[2019-06-04 20:55] LABS: Hematocrit 30 % (42-52); Hemoglobin 9.7 g/dL (14.0-18.0); Mean Corpuscular HGB Conc 33 g/dL (31-36); Mean Corpuscular Hemoglobin 29 pg (27-31); Mean Corpuscular Volume 88 fL (80-94); Mean Platelet Volume 7.8 fL (7.4-10.4); Platelet Count 334 10^3/uL (150-450); Red Blood Count 3.35 10^6 /uL (4.18-5.48); Red Cell Distribution Width 17 % (10-15); White Blood Count 13.8 10^3/uL (3.5-10.8)
[2019-06-04 21:01] LABS: BUN/Creatinine Ratio 16.3 (8-20); Calcium 7.9 mg/dL (8.6-10.3); EGFR African American 246.8 (>60); Potassium 3.7 mmol/L (3.5-5.0)
[2019-06-04 21:52] LABS: Polychromasia 1+
[2019-06-04] MEDS: cefTRIAXone(*) 1 GM in NS 0.9% 50 ML* 50 ML IVPB SCH (22:50)
[2019-06-04] MEDS ORDERED: NS 0.9% 1000 ML** 1,000 ML IV ONE (23:32)
[2019-06-05] MEDS: Heparin VIAL(*) 5000 UNITS/ML VIAL (FIVE THOUSAND) SUBCUT SCH ×3 (06:07→22:09)
[2019-06-05 07:10] LABS: Hematocrit 25 % (42-52); Hemoglobin 8.5 g/dL (14.0-18.0); Mean Corpuscular HGB Conc 34 g/dL (31-36); Mean Corpuscular Hemoglobin 30 pg (27-31); Mean Corpuscular Volume 89 fL (80-94); Mean Platelet Volume 7.6 fL (7.4-10.4); Platelet Count 220 10^3/uL (150-450); Red Blood Count 2.82 10^6 /uL (4.18-5.48); Red Cell Distribution Width 17 % (10-15); White Blood Count 7.4 10^3/uL (3.5-10.8)
[2019-06-05 07:27] LABS: Albumin 1.8 g/dL (3.2-5.2); Albumin/Globulin Ratio 0.7 (1-3); Globulin 2.5 g/dL (2-4); Indirect Bilirubin 1.4 mg/dL (0.3-1.0); Total Bilirubin 4.4 mg/dL (0.2-1.0); Total Protein 4.3 g/dL (6.4-8.9)
--- NOTE | 2019-06-05 07:27 | PN ---
Subjective Date of Service: 06/05/19 Interval History: Reports fever overnight. Denies chest pain or shortness of breath. Denies abd pain, vomiting or diarrhea. Denies cough or congestion. Family History: Unchanged from Admission Social History: Unchanged from Admission Past Medical History: Unchanged from Admission Objective Active Medications: Allopurin[facility] ([facility]yloprim Tab*) [facility] [place] Last Admin: 06/04/19 08:18 Dose: 300 mg Ascorbic Acid (Vitamin C Tab*) 500 mg PO [facility] Last Admin: 06/04/19 08:19 Dose: 500 mg Cholecalciferol (Vitamin D Tab*) 1,000 [facility] [place] Last Admin: 06/04/19 08:18 Dose: 1,000 units Docusate Sodium (Colace Cap*) 100 mg PO DAILY PRN PRN Reason: CONSTIPATION Ferrous Sulfate (Ferrous Sulfate Tab*) 325 mg PO TID [facility] Last Admin: 06/04/19 22:59 Dose: Not Given Heparin Sodium (Porcine) (Heparin Vial(*)) 5,000 units SUBCUT Q8HR [facility] Last Admin: 06/05/19 06:07 Dose: 5,000 units Ceftriaxone Sodium 1 gm/ (Sodium Chloride) 50 mls @ 100 mls/hr IVPB Q24H [facility] Last Admin: 06/04/19 22:50 Dose: 100 mls/hr Sodium Chloride (Ns 0.9% 1000 Ml) 1,000 mls @ 100 mls/hr IV PER RATE [facility] Last Admin: 06/04/19 22:50 Dose: 100 mls/hr Multivitamins/Minerals (Theragran/Minerals Tab*) 1 tab PO [facility] Last Admin: 06/04/19 08:18 Dose: 1 tab Pantoprazole Sodium (Protonix Tab*) 40 mg PO BID [facility] Last Admin: 06/04/19 22:55 Dose: 40 mg Pindolol (Pindolol(Nf)) 20 mg PO DAILY [facility] Last Admin: 06/04/19 11:13 Dose: Not Given Simethicone (Mylicon Tab*) 80 mg PO Q6H PRN PRN Reason: gas Last Admin: 06/03/19 21:28 Dose: 80 mg Vital Signs - 8 hr 06/05/19 06/05/19 02:06 03:26 Temperature 98.2 F Pulse Rate 88 82 Respiratory 18 Rate Blood Pressure 108/67 108/67 (mmHg) O2 Sat by Pulse 98 Oximetry Oxygen Devices in Use Now: None Appearance: alert, jaundice , resting in bed, no acute distress Eyes: PERRLA, - - sclera yellow Ears/Nose/Mouth/Throat: Clear Oropharnyx, Mucous Membranes Moist Neck: NL Appearance and Movements; NL JVP, Trachea Midline Respiratory: Symmetrical Chest Expansion and Respiratory Effort, Clear to Auscultation Cardiovascular: NL Sounds; No Murmurs; No JVD, No Edema Abdominal: NL Sounds; No Tenderness; No Distention Extremities: No Clubbing, Cyanosis Skin: No Rash or Ulcers Neurological: Alert and Oriented x 3 Nutrition: Taking PO's Result Diagrams: 06/05/19 06:47 06/04/19 20:32 Microbiology and Other Data: Microbiology 06/02/19 21:29 Anaerobic Blood Culture - Preliminary Blood Venous Assess/Plan/Problems-Billing Mr Hawk is a 59 yo M who has metastatic adenocarcinoma of the duodenum who was hospitalized from 06/01/19-06/02/19 for weakness that was thought to be secondary to anemia but had a blood culture drawn AM 06/02/19, when he developed a fever, which returned positive on the evening 06/02/19 after he was discharged home and was called back to the hospital for readmission. - Patient Problems (1) Bacteremia Current Visit: Yes Status: Acute Code(s): R78.81 - BACTEREMIA SNOMED Code( s): 3440842 Comment: Will continue ceftriaxone - RUQ ultrasound showed- similar significant Intra and extrahepatic bilary ductal dilation (common bile duct 1.8 cm) similar heterogenous echotexture of the liver - the pancreas and inferior pole of the right kidney are obscured - ID consulted recommended - continue ceftriaxone - bilary drain- IR contacted and willplace drain this afternoon -Unfortunately he is going to miss his appointment at [place]- rescheduled for next wednesday . (2) Duodenal adenocarcinoma Current Visit: Yes Status: Acute Code(s): C17.0 - MALIGNANT NEOPLASM OF DUODENUM SNOMED Code(s): 810057251 Comment: oncology following - new appointment made at [place] - Oncology spoke to the patient about hospice - but patient would not want that at time and would like to go to sceduled appointment at [place] (3) Transaminitis Current Visit: Yes Status: Acute Code(s): R74.0 - NONSPEC ELEV OF LEVELS OF TRANSAMNS & LACTIC ACID DEHYDRGNSE SNOMED Code(s): 623494529 Comment: Likely related to bilary obstruction - duodenal adnocarcinoma - IR will attempt to place bilary drain today (4) Anemia Current Visit: Yes Status: Acute Code(s): D64.9 - ANEMIA, UNSPECIFIED SNOMED Code(s): 604346407 Comment: H/H stable today. Continue to follow. Transfuse for Hb<8. - repeat CBC in the AM (5) CAD (coronary artery disease) Current Visit: Yes Status: Acute Code(s): I25.10 - ATHSCL HEART DISEASE OF [place] CORONARY ARTERY W/O ANG PCTRS SNOMED Code(s): 97976251 Comment: Troponin stable. Likely demand ischemia. No further work up. (6) GERD (gastroesophageal reflux disease) Current Visit: Yes Status: Acute Code(s): K21.9 - GASTRO-ESOPHAGEAL REFLUX DISEASE WITHOUT ESOPHAGITIS SNOMED Code(s): 939729992 Comment: Continue omeprazole. (7) DVT prophylaxis Current Visit: Yes Status: Acute Code(s): Z29.9 - ENCOUNTER FOR PROPHYLACTIC MEASURES, UNSPECIFIED SNOMED Code(s): 632102043 Comment: heparin SQ (8) Full code status Current Visit: Yes Status: Acute Code(s): Z78.9 - OTHER SPECIFIED HEALTH STATUS SNOMED Code(s): 076935926 Status and Disposition: inpatient
[2019-06-05] MEDS: PINDOLOL 10 MG PO SCH (09:22)
[2019-06-05] MEDS: Ferrous Sulfate TAB* 325 MG PO SCH ×3 (09:23→20:11)
[2019-06-05] MEDS: Allopurinol TAB* 300 MG PO SCH (09:23)
[2019-06-05] MEDS: Multivitamins/Minerals TAB PO SCH (09:23)
[2019-06-05] MEDS: Cholecalciferol TAB* 1000 UNITS PO SCH (09:23)
[2019-06-05] MEDS: Ascorbic Acid TAB* 500 MG PO SCH (09:23)
[2019-06-05] MEDS: Pantoprazole TAB * 40 MG TAB PO SCH ×2 (09:23→20:11)
--- NOTE | 2019-06-05 11:42 | PN ---
Progress Note - Progress Note Date of Service: 06/05/19 SOAP: Subjective: [Feeling ok today. Tmax 103.1F yesterday evening during which he reports he felt quite poorly. Eating ok. No n/v/d/c. Denies abd pain. No urinary symptoms.] Objective: [ Vital Signs: Temp Pulse Resp BP Pulse Ox 97.7 F 84 18 114/58 99 06/05/19 07:15 06/05/19 07:15 06/05/19 08:00 06/05/19 07:15 06/05/19 07:15 Allopurinol ([facility]yloprim [facility]*) [facility] [place] Last Admin: 06/05/19 09:23 Dose: 300 mg Ascorbic Acid (Vitamin C Tab*) [facility] [place] Last Admin: 06/05/19 09:23 Dose: 500 mg Cholecalciferol (Vitamin D Tab*) 1,000 [facility] [place] Last Admin: 06/05/19 09:23 Dose: 1,000 units Docusate Sodium (Colace Cap*) 100 mg PO DAILY PRN PRN Reason: CONSTIPATION Ferrous Sulfate (Ferrous Sulfate Tab*) 325 mg PO TID [facility] Last Admin: 06/05/19 09:23 Dose: 325 mg Heparin Sodium (Porcine) (Heparin Vial(*)) 5,000 units SUBCUT Q8HR [facility] Last Admin: 06/05/19 06:07 Dose: 5,000 units Ceftriaxone Sodium 1 gm/ (Sodium Chloride) 50 mls @ 100 mls/hr IVPB Q24H [facility] Last Admin: 06/04/19 22:50 Dose: 100 mls/hr Sodium Chloride (Ns 0.9% 1000 Ml) 1,000 mls @ 100 mls/hr IV PER RATE [facility] Last Admin: 06/04/19 22:50 Dose: 100 mls/hr Multivitamins/Minerals (Theragran/Minerals Tab*) [facility] [place] Last Admin: 06/05/19 09:23 Dose: 1 tab Pantoprazole Sodium (Protonix Tab*) 40 mg PO BID [facility] Last Admin: 06/05/19 09:23 Dose: 40 mg Pindolol (Pindolol(Nf)) 20 mg PO DAILY [facility] Last Admin: 06/05/19 09:22 Dose: Not Given Simethicone (Mylicon Tab*) 80 mg PO Q6H PRN PRN Reason: gas Last Admin: 06/03/19 21:28 Dose: 80 mg Laboratory Results - last 24 hr 06/04/19 06/04/19 06/04/19 20:32 20:32 20:32 WBC 13.8 H RBC 3.35 L Hgb 9.7 L Hct 30 L MCV 88 MCH 29 MCHC 33 RDW 17 H Plt Count 334 MPV 7.8 Neut % (Auto) Not Reportable Lymph % (Auto) Not Reportable [place] % (Auto) Not Reportable Eos % (Auto) Not Reportable Baso % (Auto) Not Reportable Absolute Neuts (auto) Not Reportable Absolute Lymphs (auto) Not Reportable Absolute Monos (auto) Not Reportable Absolute Eos (auto) Not Reportable Absolute Basos (auto) Not Reportable Absolute Nucleated RBC Not Reportable Immature Gran % 2.0 Neutrophils % 84.0 Band Neutrophils % 2.0 Lymphocytes % 10.0 Monocytes % 4.0 Nucleated RBC % Not Reportable Abs Neuts (Manual) 11.8 H Abs Lymphs (Manual) 1.4 Abs Monocytes (Manual) 0.6 Toxic Granulation 1+ Normal RBC Morphology Not Reportable Polychromasia 1+ Anisocytosis 1+ Sodium 130 L Potassium 3.7 Chloride 102 Carbon Dioxide 21 L Anion Gap 7 BUN 7 Creatinine 0.43 L Est GFR ( Amer) 246.8 Est GFR (Non-Af Amer) 204.0 BUN/Creatinine Ratio 16.3 Glucose 92 Lactic Acid 1.7 Calcium 7.9 L Total Bilirubin Direct Bilirubin Indirect Bilirubin AST ALT Alkaline Phosphatase Total Protein Albumin Globulin Albumin/Globulin Ratio 06/05/19 06/05/19 06:47 06:47 WBC 7.4 RBC 2.82 L Hgb 8.5 L Hct 25 L MCV 89 MCH 30 MCHC 34 RDW 17 H Plt Count 220 MPV 7.6 Neut % (Auto) Lymph % (Auto) [place] % (Auto) Eos % (Auto) Baso % (Auto) Absolute Neuts (auto) Absolute Lymphs (auto) Absolute Monos (auto) Absolute Eos (auto) Absolute Basos (auto) Absolute Nucleated RBC Immature Gran % Neutrophils % Band Neutrophils % Lymphocytes % Monocytes % Nucleated RBC % Abs Neuts (Manual) Abs Lymphs (Manual) Abs Monocytes (Manual) Toxic Granulation Normal RBC Morphology Polychromasia Anisocytosis Sodium Potassium Chloride Carbon Dioxide Anion Gap BUN Creatinine Est GFR ( Amer) Est GFR (Non-Af Amer) BUN/Creatinine Ratio Glucose Lactic Acid Calcium Total Bilirubin 4.40 H Direct Bilirubin 3.00 H Indirect Bilirubin 1.4 H AST 101 H ALT 64 H Alkaline Phosphatase 1157 H Total Protein 4.3 L Albumin 1.8 L Globulin 2.5 Albumin/Globulin Ratio 0.7 L Exam: Gen: chronically ill appearing and weak in NAD HEENT: MMM CV: RRR, no m/r/g Resp: CTA no w/c/r Abd: soft and nonTTP Ext: trace edema] Assessment: [This is a 59 yo male with chemorefractory metastatic duodenal adenocarcinoma who was admitted last week with c/o weakness found to be more anemic likely to bleeding duodenal tumor. He had improved after a blood transfusion and discharged home in hopes of reaching a [place] consultation to consider clinical trial. He had an isolated fever prior to dc at which point blood cultures were collected, but he was asx and anxious to get home. Shortly after returning home his blood culture from his port site was positive, now identified as EColi. Of note his Tbili and transaminases have been climbing steadily over the last week. His UA was negative for signs of infection, his most likely source of bacteremia is biliary obstruction secondary to an obstructing duodenal tumor. Patient remains motivated to pursue aggressive treatment measures and would like to be considered for clinical trial. Plan: [1. EColi bacteremia, suspect biliary obstruction - pansensitive organism - ID consult pending - cont ceftriaxone 2. Biliary obstruction - RUQ US shows distal obstruction, likely secondary to duodenal tumor - recommend ERCP v external biliary drain - will review case with Dr Carroll and Dr Zhou - but suspect that endoscopic approach will be technically challenging and external approach will be favored 3. Metastatic duodenal adenocarcinoma - chemorefractory with recent POD on FOLFIRI - pending evaluation for clinical trial - he is unlikely to be a candidate at this time given his hyperbilirubinemia and transaminitis in addition to his declining performance status - despite the above limitations and candid conversation about his prognosis and palliative options he remains motivated to continue therapy which includes consideration for a clinical trial Dispo: requires continued inpatient care
[2019-06-05 13:20] LABS: INR 1.55 (0.82-1.09)
[2019-06-05] MEDS ORDERED: diPHENhydraMINE IV* 50 MG/ML 1 ml VIAL (BENADRYL) ONE (14:53)
[2019-06-05] MEDS ORDERED: fentaNYL* 50 MCG/ML 2 ML VIAL (100 MCG VIAL) ONE (14:54)
[2019-06-05] MEDS ORDERED: cefTRIAXone(*) 1 GM in NS 0.9% 50 ML* 50 ML IVPB SCH (16:00)
--- NOTE | 2019-06-05 16:04 | CONS ---
CONSULTATION REPORT: DATE OF CONSULT: 06/05/19 PRIMARY CARE PROVIDER: Dr. Consuelo Corey. PROVIDER REQUESTING CONSULTATION: Dr. Mariel Iyer. CONSULTING SERVICE: Infectious Disease. PROVIDER: Mckenzie Sanchez NP ATTENDING PROVIDER: Dr. Christ Lucas.* (DICTATED BY MCKENZIE SANCHEZ, LACTATION SPECIALIST-C) REASON FOR CONSULT: E. coli bacteremia. IMPRESSION: 1. Escherichia coli bacteremia. The patient is noted to have blood cultures positive off of his port on 06/02/19, 1/2 bottles positive and venous cultures with 1/4 positive on 06/02/19. Suspected source is his liver. Liver ultrasound with a dilated common bile duct. He has a history of a cholecystectomy. There is a concern that he may have seeded his PowerPort also. He is currently on ceftriaxone. 2. Biliary obstruction. Right upper quadrant ultrasound with ductal obstruction suspect secondary to a duodenal tumor. 3. Metastatic duodenal adenocarcinoma. He is following with Oncology outpatient. He has been referred to [place] for further treatment options. 4. Status post right total knee arthroplasty. The right knee is benign. No concerns for septic knee. RECOMMENDATIONS/PLAN: Agree with discussing the case with GI and Interventional Radiology to see if he can get an external biliary drain verus ERCP. Continue ceftriaxone for now. HISTORY OF PRESENT ILLNESS: Mr. Hawk is a 59-year-old male with past medical history significant for metastatic duodenal adenocarcinoma, hypertension , hyperlipidemia, chronic blood loss anemia and gout, who states that he has been doing well until Wednesday, when he developed extreme weakness. He was hospitalized from Wednesday through Wednesday. He was admitted for multifactorial weakness. He had improvement with discharge on 06/02/19. He was home for few hours when his blood culture results returned with E. coli. He was called and asked to return to the emergency room for admission due to E. coli bacteremia. While in the hospital, he was noted to be febrile overnight with a temperature of 103.1. Repeat blood cultures with 1/4 bottles positive for E. coli. He had an abdomen, pelvis CT scan showing stable small to moderate pericardial effusion , stable basilar intermediate pulmonary nodules, punctate nonobstructive right nephrolysis, and a stable mass lesion involving the duodenum and proximal jejunum with stable fat stranding in the region. He had a liver ultrasound showing similar significant intra and extrahepatic biliary duct dilation recumbent to bile duct 1.8 cm. He had leukocytosis on 06/04/19, this has resolved. He does not have neutropenia. Urinalysis significant for bilirubin and urobilinogen present. He denies fever since last fever overnight. Denies chills, weight loss. He reports an occasional dry cough that has been going on for a while. Denies joint pain, muscle pain. He reports nausea with vomiting yesterday. He feels this is secondary to eating chicken as he had not been eating very much. Denies diarrhea, constipation, abdominal pain, urinary symptoms such as urgency, frequency, dysuria. Denies any recent travel. PAST MEDICAL HISTORY: 1. Metastatic duodenal adenocarcinoma. 2. Hypertension. 3. Hyperlipidemia. 4. Chronic blood loss anemia. 5. Gout. PAST SURGICAL HISTORY: 1. Status post right-sided PowerPort placement. 2. Status post right total knee arthroplasty in 2009. 3. Status post gastric bypass. 4. Status post cholecystectomy 5 to 7 years ago. 5. Status post hernia repair. MEDICATIONS: Home medications: 1. Pindolol 20 mg by mouth daily. 2. Omeprazole 20 mg by mouth twice daily. 3. Fish oil 1 tablet by mouth daily. 4. Multivitamin 1 tab by mouth daily. 5. Ferrous sulfate 325 mg by mouth 3 times daily. 6. Fenofibrate 145 mg by mouth daily. 7. Colace 100 mg by mouth daily as needed for constipation. 8. Vitamin B12 1000 mcg sublingual daily. 9. Vitamin D3 1000 units by mouth every morning. 10. Vitamin C 500 mg by mouth every morning. 11. Allopurinol 300 mg by mouth every morning. Hospital medications: 1. Allopurinol 300 mg by mouth daily. 2. Vitamin C 500 mg by mouth daily. 3. Ceftriaxone 1 g IV daily. 4. Vitamin D 1000 unit by mouth daily. 5. Colace 100 mg by mouth daily as needed for constipation. 6. Ferrous sulfate 325 mg by mouth 3 times daily. 7. Heparin sodium 5000 units subcutaneous every 8 hours. 8. Multivitamin 1 tablet by mouth daily. 9. Pantoprazole 40 mg by mouth twice daily. 10. Pindolol 20 mg by mouth daily. 11. Simethicone 80 mg by mouth every 6 hours as needed for gas. 12. Sodium chloride 100 mL intravenously an hour. ALLERGIES: ASPIRIN, BEES, CAFFEINE, STATINS, CONTRAST DYE, CODEINE, PENICILLIN caused rash. FAMILY HISTORY: Denies family history of recurrent or resistant infections. Maternal grandfather with a history of coronary artery disease. Brothers and sisters with history of diabetes. Mother with the history of breast cancer passed at age 65. Father with the history of prostate cancer passed at age 85. SOCIAL HISTORY: Denies alcohol recreational drug use. He is a former smoker quitting 5 to 6 years ago, prior to that he smoked 5 cigarettes weekly for many years. REVIEW OF SYSTEMS: I performed a 10-point review of systems. All the pertinent positives and negatives are mentioned in the history of present illness. The remaining review of systems are negative. PHYSICAL EXAM: Vital Signs: Temperature 97.7, heart rate 84, respiratory rate 18, O2 sat 99% on room air, blood pressure 114/58. General Appearance: Alert, appears to be in no acute distress. Head: Normocephalic, atraumatic. ENT: Extraocular movements are intact. No subconjunctival hemorrhage. Moist mucous membranes. Neck: Supple. No lymphadenopathy. Neurological: Alert and oriented. Moves all extremities. Cardiovascular: Regular rate and rhythm. S1 , S2 present. No murmurs, rubs, or gallops heard. Respiratory: No accessory muscle use. Lungs are clear to auscultation bilaterally. Abdomen: Bowel sounds present. Abdomen soft, nontender, nondistended. No CVA tenderness. Extremities: No lower extremity edema. Musculoskeletal: No clubbing or cyanosis noted. He exhibits good strength in all extremities. No tenderness with palpation of the neck, back or spine. No tenderness with palpation of the right knee. No effusion noted, no crepitus. He has full range of motion. Left knee, left hip, and right hip with no warmth, erythema, effusions, or crepitus noted and full range of motion. Psychological: Calm and cooperative. Skin: No rashes or abnormalities seen. He has a PowerPort to the right upper chest, site is benign. DIAGNOSTIC STUDIES/LAB DATA: Sodium 130, potassium 3.7, chloride 102, CO2 21, BUN 7, creatinine 0.43, glucose 92. White blood cell count 7.4, hemoglobin 8.5 , hematocrit 25, platelet count 220. AST 101, ALT 64, alk phos 1157, total bilirubin 4.40, indirect bilirubin is 1.4, direct bilirubin 3.0. Please see impression and recommendations outlined above, recommendations have been discussed with POLINA Castellano. Thank you for asking us to see Mr. Hawk in consultation. The case has been reviewed with my attending Dr. Christ Lucas, who agrees with the plan of care. Reviewed by MCKENZIE SANCHEZ, YOLY-Calli 06/07/19 1159 [id number]/[facility] #: [id number] [facility] HOSPITALLizette
[2019-06-05] MEDS ORDERED: Midazolam* 1 MG/ML 2 ML VIAL (2 MG) ONE (16:32)
[2019-06-05] MEDS ORDERED: Acetaminophen TAB* 325 MG PO ONE ×2 (17:56→23:14)
[2019-06-05] MEDS ORDERED: NS 0.9% 1000 ML** 1,000 ML IV SCH (17:57)
[2019-06-05] MEDS ORDERED: metroNIDAZOLE IV 500 MG/100ML* 500 MG/100 ML BAG IVPB SCH (19:00)
[2019-06-05] MEDS: Simethicone TAB* 80 MG TAB.CHEW PO PRN (20:11)
[2019-06-06] MEDS ORDERED: NS 0.9% 500 ML* 500 ML IV ONE (00:03)
[2019-06-06] MEDS ORDERED: NS 0.9% 1000 ML** 1,000 ML IV ONE (01:11)
[2019-06-06] MEDS: Heparin VIAL(*) 5000 UNITS/ML VIAL (FIVE THOUSAND) SUBCUT SCH ×2 (05:23→14:05)
[2019-06-06 07:55] LABS: Albumin 1.7 g/dL (3.2-5.2); Albumin/Globulin Ratio 0.8 (1-3); BUN/Creatinine Ratio 29.4 (8-20); Calcium 6.8 mg/dL (8.6-10.3); EGFR African American 323.6 (>60); EGFR Non-African American 267.5 (>60); Globulin 2.1 g/dL (2-4); Magnesium 1.6 mg/dL (1.9-2.7); Potassium 3.1 mmol/L (3.5-5.0); Total Bilirubin 4.7 mg/dL (0.2-1.0); Total Protein 3.8 g/dL (6.4-8.9)
[2019-06-06 08:06] LABS: Hematocrit 23 % (42-52); Hemoglobin 7.5 g/dL (14.0-18.0); Mean Corpuscular HGB Conc 33 g/dL (31-36); Mean Corpuscular Hemoglobin 29 pg (27-31); Mean Corpuscular Volume 88 fL (80-94); Mean Platelet Volume 8.1 fL (7.4-10.4); Platelet Count 227 10^3/uL (150-450); Red Blood Count 2.61 10^6 /uL (4.18-5.48); Red Cell Distribution Width 17 % (10-15); White Blood Count 17.5 10^3/uL (3.5-10.8)
[2019-06-06 08:36] LABS: ABS Lymphocytes 0.6 10^3/ul (1.0-4.8); ABS Monocytes 0.6 10^3/ul (0-0.8); ABS Neutrophils 16.2 10^3/ul (1.5-7.7); Lymphocyte % 3.7 %
[2019-06-06] MEDS ORDERED: Ondansetron INJ* 2 MG/ML VIAL IV PRN (08:43)
[2019-06-06] MEDS ORDERED: Morphine INJ* 2 MG/ML 1 ML SYRINGE (TWO MG - NEW SYRINGE VERSION) IV PRN (08:50)
[2019-06-06] MEDS: Simethicone TAB* 80 MG TAB.CHEW PO PRN ×2 (09:39→14:02)
[2019-06-06] MEDS ORDERED: NS 0.9% 1000 ML** 1,000 ML IV SCH (09:44)
--- NOTE | 2019-06-06 09:54 | PN ---
Subjective Date of Service: 06/06/19 Interval History: Alert to verbal. Patient denies chest pain or shortness of breath. Patient c/ o RUQ abd at the surgical incision site. Denies vomiting. Denies abd pain. Overnight events reviewed with Dionna MULLINS. Patient with fever 101.1 last evening. Patient was hypotensive overnight with systolic blood pressure in the 90's Patient reports he is feeling well this but appears tachypneic. - given lasix 20 mg as patient appears fluid overloaded Given unsuccessful attempt to place bilary drainage patient will need to be transferred to a high level of care facility. Transfer process in place - patient has been accepted at [facility] - Dr. Storey Family History: Unchanged from Admission Social History: Unchanged from Admission Past Medical History: Unchanged from Admission Objective Active Medications: Allopurinol (Zyloprim Tab*) 300 mg PO [facility] Last Admin: 06/05/19 09:23 Dose: 300 mg Ascorbic Acid (Vitamin C Tab*) 500 mg PO [facility] Last Admin: 06/05/19 09:23 Dose: 500 mg Cholecalciferol (Vitamin D Tab*) 1,000 units PO [facility] Last Admin: 06/05/19 09:23 Dose: 1,000 units Docusate Sodium (Colace Cap*) 100 mg PO DAILY PRN PRN Reason: CONSTIPATION Heparin Sodium (Porcine) (Heparin Vial(*)) 5,000 units SUBCUT Q8HR [facility] Last Admin: 06/06/19 05:23 Dose: 5,000 units Ceftriaxone Sodium 1 gm/ (Sodium Chloride) 50 mls @ 100 mls/hr IVPB DAILY@1600 [facility] Last Admin: 06/05/19 18:13 Dose: 100 mls/hr Sodium Chloride (Ns 0.9% 1000 Ml) 1,000 mls @ 75 mls/hr IV PER RATE [facility] Last Admin: 06/06/19 00:57 Dose: 75 mls/hr Morphine Sulfate (Morphine Inj (Syringe))*) 2 mg IV ONCE PRN PRN Reason: PAIN - SEVERE Multivitamins/Minerals (Theragran/Minerals Tab*) 1 tab PO [facility] Last Admin: 06/05/19 09:23 Dose: 1 tab Ondansetron HCl (Zofran Inj*) 4 mg IV Q4H PRN PRN Reason: NAUSEA Last Admin: 06/06/19 09:37 Dose: 4 mg Pantoprazole Sodium (Protonix Tab*) 40 mg PO BID [facility] Last Admin: 06/05/19 20:11 Dose: 40 mg Pindolol (Pindolol(Nf)) 20 mg PO DAILY [facility] Last Admin: 06/05/19 09:22 Dose: Not Given Simethicone (Mylicon Tab*) 80 mg PO Q6H PRN PRN Reason: gas Last Admin: 06/06/19 09:39 Dose: 80 mg Vital Signs - 8 hr 06/06/19 06/06/19 06/06/19 02:38 07:15 08:25 Temperature 97.6 F 97.8 F 98.2 F Pulse Rate 95 92 119 Respiratory 18 20 30 Rate Blood Pressure 100/59 105/65 116/92 (mmHg) O2 Sat by Pulse 97 96 95 Oximetry Oxygen Devices in Use Now: None Appearance: appears weak, jaundice Eyes: - - sclera are jaundice, conjunctiva are pale Ears/Nose/Mouth/Throat: Mucous Membranes Moist Neck: NL Appearance and Movements; NL JVP, Trachea Midline Respiratory: Symmetrical Chest Expansion and Respiratory Effort, - - diminshed breath sounds t/o bilat Cardiovascular: NL Sounds; No Murmurs; No JVD Abdominal: NL Sounds; No Tenderness; No Distention, - Extremities: No Clubbing, Cyanosis, - - generalized edema to all extremities Skin: No Rash or Ulcers Neurological: Alert and Oriented x 3 Nutrition: Taking PO's Result Diagrams: 06/06/19 06:44 06/06/19 06:44 Microbiology and Other Data: Microbiology 06/02/19 21:29 Anaerobic Blood Culture - Preliminary Blood Venous Assess/Plan/Problems-Billing Mr Hawk is a 59 yo M who has metastatic adenocarcinoma of the duodenum who was hospitalized from 06/01/19-06/02/19 for weakness that was thought to be secondary to anemia but had a blood culture drawn AM 06/02/19, when he developed a fever, which returned positive on the evening 06/02/19 after he was discharged home and was called back to the hospital for readmission. - Patient Problems (1) Bacteremia Status: Acute Code(s): R78.81 - BACTEREMIA SNOMED Code(s): 5729194 Comment: likely related to obstruced bilary duct- e coli bactremia Will continue ceftriaxone- - RUQ ultrasound showed- similar significant Intra and extrahepatic bilary ductal dilation (common bile duct 1.8 cm) similar heterogenous echotexture of the liver - the pancreas and inferior pole of the right kidney are obscured - ID consulted recommended - continue ceftriaxone - bilary drain- IR attempted drain placement but was unsuccessful- will initate transfer to higher level of care for bilary duct management -Unfortunately he is going to miss his appointment at [facility]- rescheduled for next wednesday . (2) Duodenal adenocarcinoma Status: Acute Code(s): C17.0 - MALIGNANT NEOPLASM OF DUODENUM SNOMED Code(s) : 596014220 Comment: oncology following - new appointment made at [facility]- next wednesday - Oncology spoke to the patient about hospice - but patient would not want that at this time and would like to go to scheduled appointment [facility]- would like to continue with aggressive treatment for his duodenal adenocarcinoma (3) Transaminitis Status: Acute Code(s): R74.0 - NONSPEC ELEV OF LEVELS OF TRANSAMNS & LACTIC ACID DEHYDRGNSE SNOMED Code(s): 817500951 Comment: Likely related to bilary obstruction - duodenal adnocarcinoma - IR will attempt to place bilary drain - unsuccessful with placement (4) Anemia Status: Acute Code(s): D64.9 - ANEMIA, UNSPECIFIED SNOMED Code(s): 082526738 Comment: H/H stable today. Continue to follow. Transfuse for Hb<8. - repeat CBC hgb 7.5 - will transfuse 1 unit PRBC's (5) CAD (coronary artery disease) Status: Acute Code(s): I25.10 - ATHSCL HEART DISEASE OF [place] CORONARY ARTERY W/O ANG PCTRS SNOMED Code(s): 39593110 Comment: Troponin stable. Likely demand ischemia. No further work up. (6) GERD (gastroesophageal reflux disease) Status: Acute Code(s): K21.9 - GASTRO-ESOPHAGEAL REFLUX DISEASE WITHOUT ESOPHAGITIS SNOMED Code(s): 264809688 Comment: Continue omeprazole. (7) DVT prophylaxis Status: Acute Code(s): Z29.9 - ENCOUNTER FOR PROPHYLACTIC MEASURES, UNSPECIFIED SNOMED Code(s): 217192723 Comment: heparin SQ (8) Full code status Status: Acute Code(s): Z78.9 - OTHER SPECIFIED HEALTH STATUS SNOMED Code(s) : 382648111 Status and Disposition: inpatient - transfer to higher level of care facility
[2019-06-06] MEDS: Pantoprazole TAB * 40 MG TAB PO SCH (10:03)
--- NOTE | 2019-06-06 10:12 | PN ---
Progress Note - Progress Note Date of Service: 06/06/19 SOAP: Subjective: CC: E Coli bacteremia HPI: Mr. Hawk is a 59 yo male with PMH significant for metastatic duodenal adenocarcinoma, hypertension, hyperlipidemia, chronic blood loss anemia and gout . Reports feeling unwell today, with fever, discomfort at procedure site and diarrhea. Denies nausea, vomiting, ABD pain, back pain. No pain in the right knee. Objective: Vital Signs - 8 hr 06/06/19 06/06/19 06/06/19 02:38 07:15 08:25 Temperature 97.6 F 97.8 F 98.2 F Pulse Rate 95 92 119 Respiratory 18 20 30 Rate Blood Pressure 100/59 105/65 116/92 (mmHg) O2 Sat by Pulse 97 96 95 Oximetry Physical Exam: General: Ill appearing, sitting up in a chair Neurological: Alert and Oriented HEENT: Moist MM Cardiovascular: Heart rate regular, no murmur Respiratory: Lung sounds clear Abdominal: Bowel sounds present, ABD soft, non tender and non distended MSK: No tenderness with palpation of the right knee, no effusion, no erythema Skin: No rash, port site to right upper chest benign Laboratory Results - last 24 hr 06/05/19 06/06/19 06/06/19 13:01 06:42 06:44 WBC 17.5 H RBC 2.61 L Hgb 7.5 L Hct 23 L MCV 88 MCH 29 MCHC 33 RDW 17 H Plt Count 227 MPV 8.1 Neut % (Auto) 92.5 Lymph % (Auto) 3.7 [place] % (Auto) 3.6 Eos % (Auto) 0.0 Baso % (Auto) 0.2 Absolute Neuts (auto) 16.2 H Absolute Lymphs (auto) 0.6 L Absolute Monos (auto) 0.6 Absolute Eos (auto) 0.0 Absolute Basos (auto) 0.0 Absolute Nucleated RBC 0.0 Nucleated RBC % 0.0 INR (Anticoag Therapy) 1.55 H Blood Type B Positive Antibody Screen Negative Crossmatch See Detail 06/06/19 06:44 Sodium 136 Potassium 3.1 L Chloride 110 Carbon Dioxide 21 L Anion Gap 5 BUN 10 Creatinine 0.34 L Est GFR ( Amer) 323.6 Est GFR (Non-Af Amer) 267.5 BUN/Creatinine Ratio 29.4 H Glucose 82 Calcium 6.8 L Magnesium 1.6 L Total Bilirubin 4.70 H AST 66 H ALT 53 H Alkaline Phosphatase 847 H Total Protein 3.8 L Albumin 1.7 L Globulin 2.1 Albumin/Globulin Ratio 0.8 L Microbiology 06/02/19 21:29 Aerobic Blood Culture - Preliminary Blood Venous No Growth Day 3 Anaerobic Blood Culture - Final Escherichia Coli 06/05/19 17:08 Gram Stain - Final No Source Provided Skin and Soft Tissue MRSA/MSSA (PCR - Final Mrsa Negative S.aureus Negative 06/04/19 20:32 Aerobic Blood Culture - Preliminary Blood Venous No Growth Day 1 Anaerobic Blood Culture - Preliminary 06/04/19 20:32 Aerobic Blood Culture - Preliminary Blood Venous No Growth Day 1 Anaerobic Blood Culture - Preliminary 06/02/19 21:29 Aerobic Blood Culture - Preliminary Blood Venous No Growth Day 3 Anaerobic Blood Culture - Preliminary No Growth Day 3 Assessment: 1. E coli bacteremia. Suspect source is biliary obstruction. Repeat blood cultures from yesterday with 2/4 bottles positive for gram negative bacilli. Continues to have intermittent fevers and leukocytosis. Attempted biliary drain yesterday was unsuccessful. Hospital Medicine is working to transfer the patient to a facility that can perform a biliary drain placement. 2. Biliary obstruction. US with ductal obstruction. Secondary to duodenal tumor. Needs to have a biliary drain placed. 3. Metastatic duodenal adenocarcinoma. 4. History of right total knee arthroplasty. Knee is benign, no concern for septic knee. Plan: Continue Ceftriaxone, will increase the dose to 2 gm IV daily. Ok to use port. No need for an echocardigram, gram negative bacteria do not typically cause endocarditis. Discussed with POLINA Ivan and Pao Trevino, [facility]
[2019-06-06] MEDS: Allopurinol TAB* 300 MG PO SCH (10:27)
[2019-06-06] MEDS: Ascorbic Acid TAB* 500 MG PO SCH (10:27)
[2019-06-06] MEDS: PINDOLOL 10 MG PO SCH (10:28)
[2019-06-06] MEDS: Cholecalciferol TAB* 1000 UNITS PO SCH (10:28)
[2019-06-06] MEDS: Multivitamins/Minerals TAB PO SCH (10:28)
[2019-06-06] MEDS: Ferrous Sulfate TAB* 325 MG PO SCH (10:31)
--- NOTE | 2019-06-06 10:32 | PN ---
Progress Note - Progress Note Date of Service: 06/06/19 SOAP: Subjective: []Unfortunately IR was not able to place a drain. Hospitalist team is working on transfer to higher level care for possible ERCP vs. surgery. Reviewed with Vinicius the serious nature of his current condition. If biliary stenting/drainage is not possible he likely has a prognosis of days even with antibiotics, however even if the procedure is possible he likely has less than 3 mo. as he is not a candidate for further therapy and I suspect not a candidate for clinical trail at this time due to his recurrent bleeding and declining performance status. Vinicius was surprised at this prognosis and admitted, "I thought I had more time, I guess we all do." Started to process some of this information thinking about things he "needs to do" and says to this typewriter tester, "I guess I need to talk to my parents." Medical: Allopurinol (Zyloprim Tab*) [address] [facility] Last Admin: 06/05/19 09:23 Dose: 300 mg Ascorbic Acid (Vitamin C Tab*) [address] [facility] Last Admin: 06/05/19 09:23 Dose: 500 mg Cholecalciferol (Vitamin D Tab*) 1,[address] [facility] Last Admin: 06/05/19 09:23 Dose: 1,000 units Docusate Sodium (Colace Cap*) 100 mg PO DAILY PRN PRN Reason: CONSTIPATION Heparin Sodium (Porcine) (Heparin Vial(*)) 5,000 units SUBCUT Q8HR [facility] Last Admin: 06/06/19 05:23 Dose: 5,000 units Sodium Chloride (Ns 0.9% 1000 Ml) 1,000 mls @ 50 mls/hr IV PER RATE [facility] Ceftriaxone Sodium 2 gm/ (Sodium Chloride) 100 mls @ 200 mls/hr IVPB Q24H [facility] Morphine Sulfate (Morphine Inj (Syringe))*) 2 mg IV ONCE PRN PRN Reason: PAIN - SEVERE Multivitamins/Minerals (Theragran/Minerals Tab*) [facility] Last Admin: 06/05/19 09:23 Dose: 1 tab Ondansetron HCl (Zofran Inj*) 4 mg IV Q4H PRN PRN Reason: NAUSEA Last Admin: 06/06/19 09:37 Dose: 4 mg Pantoprazole Sodium (Protonix Tab*) 40 mg PO BID [facility] Last Admin: 06/06/19 10:03 Dose: 40 mg Pindolol (Pindolol(Nf)) 20 mg PO DAILY [facility] Last Admin: 06/05/19 09:22 Dose: Not Given Simethicone (Mylicon Tab*) 80 mg PO Q6H PRN PRN Reason: gas Last Admin: 06/06/19 09:39 Dose: 80 mg Objective: [] Vital Signs Temp Pulse Resp BP Pulse Ox 98.2 F 119 30 116/92 95 06/06/19 08:25 06/06/19 08:25 06/06/19 08:25 06/06/19 08:25 06/06/19 08:25 A&O, notably weak HRR, tachy LS dim., tachypneac BS, abd. soft, slightly tender Jaundice with icterus Laboratory Results - last 24 hr 06/05/19 06/06/19 06/06/19 13:01 06:42 06:44 WBC 17.5 H RBC 2.61 L Hgb 7.5 L Hct 23 L MCV 88 MCH 29 MCHC 33 RDW 17 H Plt Count 227 MPV 8.1 Neut % (Auto) 92.5 Lymph % (Auto) 3.7 [facility] % (Auto) 3.6 Eos % (Auto) 0.0 Baso % (Auto) 0.2 Absolute Neuts (auto) 16.2 H Absolute Lymphs (auto) 0.6 L Absolute Monos (auto) 0.6 Absolute Eos (auto) 0.0 Absolute Basos (auto) 0.0 Absolute Nucleated RBC 0.0 Nucleated RBC % 0.0 INR (Anticoag Therapy) 1.55 H Sodium Potassium Chloride Carbon Dioxide Anion Gap BUN Creatinine Est GFR ( Amer) Est GFR (Non-Af Amer) BUN/Creatinine Ratio Glucose Calcium Magnesium Total Bilirubin AST ALT Alkaline Phosphatase Total Protein Albumin Globulin Albumin/Globulin Ratio Blood Type B Positive Antibody Screen Negative Crossmatch See Detail 06/06/19 06:44 WBC RBC Hgb Hct MCV MCH MCHC RDW Plt Count MPV Neut % (Auto) Lymph % (Auto) [facility] % (Auto) Eos % (Auto) Baso % (Auto) Absolute Neuts (auto) Absolute Lymphs (auto) Absolute Monos (auto) Absolute Eos (auto) Absolute Basos (auto) Absolute Nucleated RBC Nucleated RBC % INR (Anticoag Therapy) Sodium 136 Potassium 3.1 L Chloride 110 Carbon Dioxide 21 L Anion Gap 5 BUN 10 Creatinine 0.34 L Est GFR ( Amer) 323.6 Est GFR (Non-Af Amer) 267.5 BUN/Creatinine Ratio 29.4 H Glucose 82 Calcium 6.8 L Magnesium 1.6 L Total Bilirubin 4.70 H AST 66 H ALT 53 H Alkaline Phosphatase 847 H Total Protein 3.8 L Albumin 1.7 L Globulin 2.1 Albumin/Globulin Ratio 0.8 L Blood Type Antibody Screen Crossmatch Microbiology 06/02/19 21:29 Aerobic Blood Culture - Preliminary Blood Venous No Growth Day 3 Anaerobic Blood Culture - Final Escherichia Coli 06/05/19 17:08 Gram Stain - Final No Source Provided Skin and Soft Tissue MRSA/MSSA (PCR - Final Mrsa Negative S.aureus Negative 06/04/19 20:32 Aerobic Blood Culture - Preliminary Blood Venous No Growth Day 1 Anaerobic Blood Culture - Preliminary 06/04/19 20:32 Aerobic Blood Culture - Preliminary Blood Venous No Growth Day 1 Anaerobic Blood Culture - Preliminary 06/02/19 21:29 Aerobic Blood Culture - Preliminary Blood Venous No Growth Day 3 Anaerobic Blood Culture - Preliminary No Growth Day 3 Assessment: []Vinicius is a 59 yo male with chemo-refractory metastatic duodenal adenocarcinoma admitted with e.coli bacteremia found to have rising LFTs with imaging revealing biliary obstruction. Unfortunately drainage was not possible via IR and he will require transfer in order to proceed with ERCP. Plan: []1. E.Coli bacteremia, 2/2 biliary obstruction likely related to progressive cancer - sheriff-sensitive organism, appreciate ID consult - cont ceftriaxone 2. Biliary obstruction: recommend transfer for further intervention - if he can not have a stent or external drain placed he will likely in days 3. Metastatic duodenal adenocarcinoma: no longer a candidate for therapy, however performance status up until this admission would indicate potential for clinical trail, though I suspect he will no longer be a candidate despite the appropriate nature of attempting to clear the obstruction - katie discussion with pt. as above 4. Anemia: secondary to bleeding tumor, recurrent - recommend 1 unit PRBCs Dispo: requires transfer to higher level of care
[2019-06-06] MEDS ORDERED: cefTRIAXone(*) 2 GM in NS 0.9% 100 ML* 100 ML IVPB SCH (12:00)
[2019-06-06] MEDS ORDERED: Magnesium Sulfate IV* 3 GM in NS 0.9% 100 ML* 100 ML IVPB ONE (12:09)
[2019-06-06] MEDS ORDERED: Potassium Chlor TAB* 20 MEQ TAB.ER PO ONE (12:10)
[2019-06-06] MEDS ORDERED: Furosemide IV* 10 MG/ML 2 ML VIAL (20 MG) IV ONE (14:15)
[2019-06-06] MEDS ORDERED: Furosemide IV* 10 MG/ML 2 ML VIAL (20 MG) ONE (14:19)
[2019-06-06 16:53] LABS: Urine Appearance Cloudy; Urine Bilirubin 2+ (Negative); Urine Blood 3+ (Negative); Urine Color Amber; Urine Glucose Negative (Negative); Urine Ketones Negative (Negative); Urine Nitrite Negative (Negative); Urine Protein 1+(30 mg/dL) (Negative); Urine Specific Gravity 1.024 (1.010-1.030); Urine Urobilinogen Positive (Negative)
[2019-06-06 17:10] LABS: Urine Bacteria Absent (Absent); Urine Red Blood Cell 2+(6-10/hpf) (Absent); Urine Red Blood Cell Casts Present (Absent); Urine Squamous Epithelial Cell Present (Absent); Urine White Blood Cell 1+(6-10/hpf) (Absent)
--- NOTE | 2019-06-06 17:16 | TRS ---
DATE OF ADMISSION: 06/02/2019. DATE OF TRANSFER: 06/06/2019. [facility]IC[facility]: Dr. Curry. PROVIDER: Ana Trevino NP. ATTENDING PHYSICIAN WHILE IN THE HOSPITAL: Dr. Jammie Boyd * (dictated by Ana Trevino NP). PRIMARY CARE PHYSICIAN: Dr. Corey. PRIMARY ONCOLOGIST: Dr. Dafne Troncoso. PRIMARY DIAGNOSIS: 1. E. coli bacteremia likely from obstructive biliary duct. 2. Obstructive biliary duct. 3. Transaminitis. 4. Sepsis related to e- coli for suspected biliary duct obstruction. SECONDARY DIAGNOSES: 1. Duodenal adenocarcinoma, stage 4, metastatic, failed chemo. 2. Anemia likely from duodenal mass bleeding. STUDIES COMPLETED WHILE IN THE HOSPITAL: 1. He had a chest x-ray on 06/02/2019: Radiologist's impression: No focal airspace opacification. Known pulmonary nodules are better characterized by CT. Right chest wall Mediport. 2. He had a CT of the abdomen and pelvis on 06/02/2019: Radiologist's impression: Stable small to moderate pericardial effusion. Stable bibasilar indeterminate pulmonary nodules. Stable punctate nonobstructive right nephrolithiasis. Stable mass lesion involving the duodenum and proximal jejunum with stable fat stranding in this region, cannot exclude malignancy. 3. He had a liver ultrasound on 06/04/2019: Radiologist's impression: Similar significant intra- and extrahepatic biliary ductal dilatation (common bile duct 1.8 cm). Similar heterogenous echotexture of the liver. The pancreas and inferior pole of the right kidney are obscured. DISCHARGE MEDICATIONS: 1. Allopurinol 300 mg p.o. daily. 2. Vitamin C 500 mg p.o. daily. 3. Ceftriaxone 2 gm IV daily. 4. Vitamin D 1,000 units p.o. daily. 5. Colace 100 mg p.o. daily prn. 6. Heparin 5,000 units subcu q.8 hours, on hold. 7. Morphine 2 mg IV as needed q.4 hours. 8. Multivitamin one tab p.o. daily. 9. Zofran 4 mg IV q.4 hours prn nausea. 10. Protonix 20 mg p.o. b.i.d. 11. Pindolol 20 mg p.o. daily. 12. Simethicone 80 mg p.o. q.6 hours prn. 13. Normal saline at 50 cc per hour. ALLERGIES: ASPIRIN, BEE VENOM, CAFFEINE, STATINS, IODINE CONTRAST, CODEINE, PENICILLINS. HISTORY OF PRESENT ILLNESS/HOSPITAL COURSE: Mr. Hawk is a 59-year-old male with chemo refractory metastatic duodenal adenocarcinoma who is admitted with complaints of weakness and being more anemic, likely due to bleeding duodenal tumor. He had improved after a blood transfusion and was discharged home in hopes of reaching [place] for consultation for consideration for clinical trial. He had an isolated fever prior to discharge. He had blood cultures drawn. Blood cultures came back positive which showed E. coli growth and he was instructed to return to the emergency room. The patient returned to the hospital shortly after going home. During the hospitalization, the patient' s T. bili and transaminases have been steadily climbing over the past week. He had a urine that was negative for signs of infection. His like source is biliary obstruction secondary to obstructing duodenal tumor. During this hospitalization, GI was contacted for possible intervention with an ERCP. They felt that because of the complexity of the case and duodenal adenocarcinoma tumor, he was not a candidate for an ERCP at our facility. We contacted Interventional Radiology who agreed to put an external biliary drain. The patient did go to IR for an attempt at an external biliary drain placement which was unsuccessful. The patient continues to have elevation in his T. bili today, 06/06/2019. His T. bili is 4.70; his AST is 66, ALT is 53; alkaline phosphatase is 847. Given these findings and the recommendation from Infectious Disease, as well as Oncology, it is recommended that the patient have a biliary drain placed. It was recommended that the patient be transferred to a higher level care facility where this drain could be placed. During the hospitalization, the patient did experience hypokalemia. His potassium level has been repleted during the hospitalization. He also had a low magnesium level which was also repleted. He has been anemic. The patient' s hemoglobin and hematocrit today, 06/06/2019, was 7.5 and 23 and he was transfused one unit of packed red blood cells. Today, on the day of transfer, he does have a white count of 17.5. The patient has been spiking fevers in the evening between 100 to 103. He has had subsequent blood cultures which continue to show four out of four bottles positive for gram negative bacilli, likely E. coli. I have discussed this case with Dr. Curry at [facility] who has accepted the patient in transfer. At this time, the patient is stable for transfer. REVIEW OF SYSTEMS: The patient denies any current fever, chills, chest pain, shortness of breath. He denies any chest pain. He denies any nausea, vomiting , or diarrhea. He denies any urinary frequency, urgency or pain with urination. PHYSICAL EXAMINATION: Vital signs: Blood pressure 116/92, heart rate is between 92 to 119, respirations between 20 and 30, O2 saturation 95 percent, temperature is 98.2. HEENT: Head is atraumatic, normocephalic. Eyes: EOM's are intact. Sclerae are jaundice. Conjunctivae are pale. Neck: Supple. Lungs : Clear to auscultation bilaterally. No wheezes, rales or rhonchi. Cardiac: S1, S2. Regular rate and rhythm. He is tachycardic. No rubs or gallops. Abdomen : Soft, nontender. He does have a dressing intact to his right upper quadrant with no drainage. He does have mild tenderness at the surgical incision site. Bowel sounds are active times four. Extremities: He does have generalized edema to all four extremities. There is no clubbing or cyanosis. Pedal pulses are +2 bilaterally. At this time, the patient is stable for transfer to [facility]. The patient will be transferred to [facility] for further management of his biliary obstruction and further management of his E. coli bacteremia and sepsis. CONDITION ON TRANSFER: Fair. DISPOSITION ON TRANSFER: To [facility]. TIME SPENT: Time spent on this transfer was 40 minutes, greater than half that time was spent discussing transfer plans and initiating the transfer. ANA TREVINO, BJ [id number]/[facility] #: [id number] PATY
[2019-06-06 18:38] VITALS: BP 104/62
== END 2019-06-06 17:25 | disposition short-term general hospital (02) ==
LOC: ED 20:59 → MED 23:19
PROVIDERS: ADMIT Student in an Organized Health Care Education/Training Program; ATTEND Internal Medicine
PROC: 30233N1 Transfusion of Nonautologous Red Blood Cells into Peripheral Vein, Percutaneous Approach (ICD-10-PCS; principal; 2019-06-06)
DX: K83.1 Obstruction of bile duct (principal); A41.51 Sepsis due to Escherichia coli [E. coli]; C17.0 Malignant neoplasm of duodenum; C79.9 Secondary malignant neoplasm of unspecified site; Z96.651 Presence of right artificial knee joint; E78.5 Hyperlipidemia, unspecified; M10.9 Gout, unspecified; I10 Essential (primary) hypertension; R91.8 Other nonspecific abnormal finding of lung field; I25.10 Atherosclerotic heart disease of native coronary artery without angina pectoris; K21.9 Gastro-esophageal reflux disease without esophagitis; R74.0 Nonspecific elevation of levels of transaminase and lactic acid dehydrogenase [LDH]; E87.6 Hypokalemia; G47.30 Sleep apnea, unspecified; J42 Unspecified chronic bronchitis; M47.9 Spondylosis, unspecified; M17.12 Unilateral primary osteoarthritis, left knee; D50.0 Iron deficiency anemia secondary to blood loss (chronic); D63.0 Anemia in neoplastic disease; Z28.21 Immunization not carried out because of patient refusal; Z98.84 Bariatric surgery status; Z88.6 Allergy status to analgesic agent; Z88.8 Allergy status to other drugs, medicaments and biological substances; Z88.5 Allergy status to narcotic agent; Z88.0 Allergy status to penicillin; Z91.030 Bee allergy status; Z91.041 Radiographic dye allergy status; Z91.018 Allergy to other foods; Z86.711 Personal history of pulmonary embolism; Z87.442 Personal history of urinary calculi; Z87.891 Personal history of nicotine dependence; Z92.21 Personal history of antineoplastic chemotherapy
CPT/HCPCS: 36415; 47533; 71045; 74176; 76705; 80048; 80053; 80076; 81003; 81015; 83605; 83735; 84484; 85025; 85027; 85610; 85730; 86850; 86900; 86901; 86922; 87040; 87070; 87076; 87077; 87086; 87205; 87640; 87641; 93005; 96365; 99156; 99157; 99232; 99233; 99284; A9270-GY; C1729; C1769; J0692; J0696; J1200; J1642; J1644; J1940; J2250; J2270; J2405; J3010; J3475; P9040